=== PATIENT | male | born 1955 | race Caucasian/White ===

== ENCOUNTER 2017-07-05 10:14 | Outpatient (CLI) | payer MEDICARE ==
[2017-07-05 11:48] LABS: Mean Platelet Volume 8.4 fL (7.4-10.4); Red Blood Cell (RBC) Count 4.44 mill/uL (4.70-6.10); White Blood Cell (WBC) Count 7.6 thou/uL (4.8-10.8)
[2017-07-05 11:56] LABS: PTT 28.1 SEC (22.9-36.1); Prothrombin Time 12.7 SEC (12.0-14.7)
[2017-07-05 11:59] LABS: ALT (SGPT) 14 U/L (8-55); AST (SGOT) 12 U/L (5-34); Alkaline Phosphatase 175 U/L (40-150); Anion Gap 14 mmol/L (10-20); BUN (Urea Nitrogen) 15 mg/dL (8.4-25.7); Bilirubin, Total 0.3 mg/dL (0.2-1.2); Calc. Creatinine Clearance 0 mL/min (70-130); Calcium 8.6 mg/dL (7.8-10.44); Carbon Dioxide 20 mmol/L (23-31); Chloride 102 mmol/L (98-107); Estimated GFR-MDRD 49; Globulin 2.8 g/dL (2.4-3.5); Protein, Total 6.1 g/dL (5.8-8.1)
--- NOTE | 2017-07-05 15:11 | EKG ---
Test Reason : Blood Pressure : / mmHG Vent. Rate : 072 BPM Atrial Rate : 072 BPM P-R Int : 182 ms QRS Dur : 086 ms QT Int : 428 ms P-R-T Axes : 040 -27 -51 degrees QTc Int : 468 ms Normal sinus rhythm Voltage criteria for left ventricular hypertrophy Abnormal ECG Confirmed by SAPNA FERNANDEZ ([id number]) on 07/05/2017 3:10:25 PM Referred By: VIDYA Confirmed By:SAPNA FERNANDEZ
--- NOTE | 2017-07-05 16:33 | RAD ---
PA AND LATERAL CHEST X-RAY 07/05/17 HISTORY: Preoperative evaluation. COMPARISON: 05/03/17 FINDINGS: The cardiac silhouette is mildly enlarged and stable in size. There are linear bibasilar densities w hich may relate to either atelectasis or scarring. There is mild eventration of the anterior right h emidiaphragm. Lungs are otherwise clear. There has been no other interval change. IMPRESSION: 1. Atelectasis versus scarring at each lung base. 2. Mild cardiomegaly. 3. No acute cardiopulmonary process. POS: [facility]
== END 2017-07-05 10:15 | disposition home or self-care (01) ==
LOC: LABBT 10:14
PROVIDERS: ATTEND Internal Medicine
DX: Z01.818 Encounter for other preprocedural examination (principal); I25.10 Atherosclerotic heart disease of native coronary artery without angina pectoris; I51.7 Cardiomegaly; R78.81 Bacteremia
CPT/HCPCS: 71020; 80053; 85027; 85610; 85730; 93005; 93010

== ENCOUNTER 2017-07-08 07:08 | Day surgery (SDC) | payer MEDICARE ==
[2017-07-05 11:05] VITALS: BMI 32.2
[2017-07-08] MEDS ORDERED: diphenhydrAMINE HCl 25 MG CAP ONE (07:32)
[2017-07-08] MEDS ORDERED: Diazepam 5 MG TAB ONE (07:32)
[2017-07-08] MEDS ORDERED: diphenhydrAMINE HCl 25 MG CAP PO SCH (07:45)
[2017-07-08] MEDS ORDERED: Sodium Chloride 0.9% 1,000 ML IV SCH (07:45)
[2017-07-08] MEDS ORDERED: Diazepam 5 MG TAB PO SCH (07:45)
[2017-07-08] MEDS ORDERED: Nitroglycerin 100MG/250ML BOT 250 ML ONE (09:53)
[2017-07-08] MEDS ORDERED: Heparin 10,000 UNITS/1 ML VIAL ONE (09:53)
[2017-07-08] MEDS ORDERED: Iopamidol 370 76% 100 ML VIAL ONE (13:18)
== END 2017-07-08 14:25 | disposition home or self-care (01) ==
LOC: CCL 07:08
PROVIDERS: ATTEND Internal Medicine
DX: E11.51 Type 2 diabetes mellitus with diabetic peripheral angiopathy without gangrene (principal); I25.10 Atherosclerotic heart disease of native coronary artery without angina pectoris; E11.22 Type 2 diabetes mellitus with diabetic chronic kidney disease; I13.0 Hypertensive heart and chronic kidney disease with heart failure and stage 1 through stage 4 chronic kidney disease, or unspecified chronic kidney disease; I50.22 Chronic systolic (congestive) heart failure; N18.4 Chronic kidney disease, stage 4 (severe); E78.5 Hyperlipidemia, unspecified; Z79.02 Long term (current) use of antithrombotics/antiplatelets; Z79.82 Long term (current) use of aspirin; Z79.4 Long term (current) use of insulin; Z79.899 Other long term (current) drug therapy; Z88.2 Allergy status to sulfonamides; Z95.818 Presence of other cardiac implants and grafts; Z89.511 Acquired absence of right leg below knee; Z98.49 Cataract extraction status, unspecified eye; Z98.890 Other specified postprocedural states; Z87.891 Personal history of nicotine dependence; Z87.01 Personal history of pneumonia (recurrent)
CPT/HCPCS: 75630; 82962; C1769; 36416; J1644

== ENCOUNTER 2017-08-02 09:57 | Outpatient (CLI) | payer MEDICARE ==
[2017-08-02 13:07] LABS: Hematocrit 40.5 % (42.0-52.0); Mean Platelet Volume 7.7 fL (7.4-10.4); Red Blood Cell (RBC) Count 4.54 mill/uL (4.70-6.10); White Blood Cell (WBC) Count 6.8 thou/uL (4.8-10.8)
[2017-08-02 13:32] LABS: Anion Gap 10 mmol/L (10-20); BUN (Urea Nitrogen) 17 mg/dL (8.4-25.7); Calc. Creatinine Clearance 0 mL/min (70-130); Calcium 8.8 mg/dL (7.8-10.44); Carbon Dioxide 27 mmol/L (23-31); Chloride 99 mmol/L (98-107); Estimated GFR-MDRD 50
[2017-08-02 13:56] LABS: PTT 29.9 SEC (22.9-36.1); Prothrombin Time 12.5 SEC (12.0-14.7)
== END 2017-08-02 09:58 | disposition home or self-care (01) ==
LOC: LABBT 09:57
PROVIDERS: ATTEND Thoracic Surgery (Cardiothoracic Vascular Surgery)
DX: Z01.812 Encounter for preprocedural laboratory examination (principal); I73.9 Peripheral vascular disease, unspecified; R78.81 Bacteremia
CPT/HCPCS: 80048; 85027; 85610; 85730

== ENCOUNTER 2017-08-04 05:41 | Day surgery (SDC) | payer MEDICARE ==
--- NOTE | 2017-07-29 11:38 | HP ---
DATE OF PROCEDURE: 08/04/2017 HISTORY OF PRESENT ILLNESS: This is a 61-year-old gentleman with severe peripheral vascular disease who has undergone a previous left aysen-nce-slzx amputation. He has developed significant right il iac artery disease and underwent recent angiography by Dr. Alvarez. He is now being admitted for elect rachel angiography and iliac stenting. He has no rest pain in his right leg, but does claudicate in hi s calf with transfers. He was seen about 1 year ago with a palpable right femoral pulse; however, m ost recent examination I was unable to palpate either pulses. He has previously been offered iliac stenting and did not want to proceed at that time. He has developed some abrasions that are slow to heal in his leg. He has congestive heart failure with an ejection fraction of 45%. He has chronic renal insufficiency with a creatinine in the 2.4-3 range. He has poorly controlled diabetes mellit us and does not make much attempt at controlling this, eating whatever he wants. He did stop smokin g about 2 years ago. PAST SURGICAL HISTORY: Includes a left lkyuj-ctv-yiyi amputation following left external iliac and popliteal artery interventions in 2013. He has had a previous inguinal hernia repair and cataract s urgery. SOCIAL HISTORY: Longstanding smoker, but as noted above, recently stopped. He is . He is a nondrinker. ALLERGIES: SULFA DRUGS. MEDICATIONS: Spironolactone 25 a day, NovoLog 0-12 units t.i.d., Levemir insulin 25 units b.i.d., l isinopril 1 tablet once a day, Ranexa 500 a day, Coreg 25 b.i.d., aspirin 1 a day, Plavix 75 a day, Lasix 40 a day p.r.n., Lipitor 40 a day, alprazolam 0.5 t.i.d. p.r.n. PHYSICAL EXAMINATION: GENERAL: Alert, cooperative gentleman. VITAL SIGNS: Blood pressure 150/70, heart rate 80. NECK: No carotid bruits. CARDIAC: Regular rate and rhythm, no murmurs. LUNGS: Clear to auscultation. ABDOMEN: Obese. EXTREMITIES: Left BKA, in a wheelchair. Peripheral pulses, no femoral pulses today. Doppler of th e right PT of 90 with arm pressure of 130. NEUROLOGIC: Intact. PLAN: The plan at this time is for right femoral artery puncture and attempted iliac artery stentin g. The patient does have common femoral artery disease, but most recent angiogram does not demonstrate a severe disease as I had initially anticipated at which time I would consider doing a right femoral endarterectomy. The patient understands the increased risk of renal insufficiency and is ready to proceed with angiography.
[2017-08-02 10:28] VITALS: BMI 32.2
[2017-08-04] MEDS ORDERED: diphenhydrAMINE 25 MG CAP ONE (06:22)
[2017-08-04] MEDS ORDERED: diphenhydrAMINE 25 MG CAP PO SCH (07:00)
[2017-08-04] MEDS ORDERED: Midazolam HCl 2 mg/2 ml Vial ONE (07:08)
[2017-08-04] MEDS ORDERED: Fentanyl 100 MCG/2 ML VIAL ONE ×2 (07:09→08:56)
[2017-08-04] MEDS ORDERED: Heparin 10,000 UNITS/1 ML VIAL ONE (07:46)
[2017-08-04] MEDS ORDERED: Protamine Sulfate 50 MG/5 ML VIAL ONE (07:54)
[2017-08-04] MEDS ORDERED: HYDROcodone/Acetaminophen 5/325 mg Tablet PO PRN (08:41)
[2017-08-04] MEDS ORDERED: Ondansetron HCl/PF 4 MG/2 ML Vial IVP PRN (08:41)
[2017-08-04] MEDS ORDERED: Fentanyl 100 MCG/2 ML VIAL SLOW IVP PRN (08:41)
[2017-08-04] MEDS ORDERED: Iopamidol 370 76% 50 ML VIAL FS ONE (14:33)
--- NOTE | 2017-08-04 16:01 | CCL ---
PROCEDURE: Distal aortogram and iliofemoral runoff. SURGEON: Berry ADDITIONAL PROCEDURE: Right common iliac balloon expandable stents 7 x 27. CONTRAST: 32 mL. FLUOROSCOPY: 5.4 minutes. SEDATION START TIME: 7:11 SEDATION COMPLETION TIME: 7:46 PROCEDURE IN DETAIL: After prepping and draping, a combination of ultrasound and fluoroscopy were used to a micropuncture the right common femoral artery. Micropuncture catheter was advanced. A 0.035 wire was placed follo wing which a 5 Venezuelan dilator and sheath were placed. Retrograde angiography of the right common medardo ac was obtained, following which a glide catheter and Bentson wire were used to advance across the s ubtotal occlusion in the mid common iliac artery on the right. Following this, the glide catheter wa s advanced above the bifurcation and injection obtained here, taking care to minimize manipulation ab ove the aorta. Following this, the wire was replaced. Heparin was given. A 7 Venezuelan marker sheath w as advanced and a 5 x 40 predilation was carried out. Following this, a 7 x 27 stent inflated. Comp letion angiography showed good result. The patient was given protamine and the sheath was removed.
== END 2017-08-04 14:59 | disposition home or self-care (01) ==
LOC: CCL 05:41
PROVIDERS: ATTEND Thoracic Surgery (Cardiothoracic Vascular Surgery)
DX: E11.51 Type 2 diabetes mellitus with diabetic peripheral angiopathy without gangrene (principal); E11.22 Type 2 diabetes mellitus with diabetic chronic kidney disease; I12.9 Hypertensive chronic kidney disease with stage 1 through stage 4 chronic kidney disease, or unspecified chronic kidney disease; N18.4 Chronic kidney disease, stage 4 (severe); E78.5 Hyperlipidemia, unspecified; I25.10 Atherosclerotic heart disease of native coronary artery without angina pectoris; Z79.4 Long term (current) use of insulin; Z79.01 Long term (current) use of anticoagulants; Z79.82 Long term (current) use of aspirin; Z79.899 Other long term (current) drug therapy; Z99.3 Dependence on wheelchair; Z88.2 Allergy status to sulfonamides; Z98.49 Cataract extraction status, unspecified eye; Z95.818 Presence of other cardiac implants and grafts; Z89.512 Acquired absence of left leg below knee; Z98.890 Other specified postprocedural states; Z87.891 Personal history of nicotine dependence
CPT/HCPCS: 37221; 76942; 82962; 85347; 96374; C1725 ×2; C1769; C1876; 36416; 99152; J1644; J2250; J2720; J3010

== ENCOUNTER 2017-08-14 23:47 | Inpatient (IN) | payer MEDICARE ==
[2017-08-15 00:45] LABS: #Eosinphils 0.1 thou/uL (0.0-0.7); #Lymphocytes 0.5 thou/uL (1.20-3.40); #Monocytes 0.7 thou/uL (0.11-0.59); #Neutrophils 9.7 thou/uL (1.40-6.50); %Basophils 0.1 % (0.0-1.0); %Eosinophils 0.5 % (0.0-10.0); %Lymphocytes 4.7 % (21.0-51.0); %Monocytes 6.5 % (0.0-10.0); Hematocrit 36.2 % (42.0-52.0); Mean Platelet Volume 7.3 fL (7.4-10.4); Red Blood Cell (RBC) Count 4.07 mill/uL (4.70-6.10)
[2017-08-15 00:51] LABS: Prothrombin Time 14.6 SEC (12.0-14.7)
[2017-08-15 00:52] LABS: PTT 35.7 SEC (22.9-36.1)
[2017-08-15 00:53] LABS: Magnesium 1.6 mg/dL (1.6-2.6)
[2017-08-15 01:04] LABS: Troponin I 0.139 ng/mL (< 0.028)
[2017-08-15] MEDS ORDERED: Metoclopramide HCl 10 MG/2 ML VIAL ONE (01:07)
[2017-08-15 01:53] LABS: ALT (SGPT) 19 U/L (8-55); AST (SGOT) 24 U/L (5-34); Alkaline Phosphatase 629 U/L (40-150); Anion Gap 13 mmol/L (10-20); BUN (Urea Nitrogen) 40 mg/dL (8.4-25.7); Bilirubin, Total 0.4 mg/dL (0.2-1.2); Calc. Creatinine Clearance 0 mL/min (70-130); Calcium 7.4 mg/dL (7.8-10.44); Carbon Dioxide 23 mmol/L (23-31); Chloride 94 mmol/L (98-107); Estimated GFR-MDRD 17; Globulin 2.9 g/dL (2.4-3.5); Protein, Total 5.3 g/dL (5.8-8.1)
[2017-08-15 04:16] LABS: Troponin I 0.145 ng/mL (< 0.028)
[2017-08-15] MEDS ORDERED: Lidocaine 2% Jelly 5 ML TUBE ONE (04:18)
[2017-08-15] MEDS ORDERED: Mag-Al 1200 mg/1200 mg/30 ML UDCUP ONE (04:18)
[2017-08-15] MEDS ORDERED: Lidocaine Viscous Sol 2% 15 ml UD Cup ONE (04:19)
[2017-08-15] MEDS ORDERED: Ondansetron HCl/PF 4 MG/2 ML Vial IVP PRN ×2 (05:22→18:46)
[2017-08-15] MEDS ORDERED: Ondansetron ODT 4 MG TAB SL PRN (05:22)
[2017-08-15 07:10] LABS: Troponin I 0.145 ng/mL (< 0.028)
[2017-08-15 07:58] LABS: #Lymphocytes 0.6 thou/uL (1.20-3.40); #Monocytes 0.8 thou/uL (0.11-0.59); #Neutrophils 9.7 thou/uL (1.40-6.50); %Basophils 0.3 % (0.0-1.0); %Eosinophils 0.3 % (0.0-10.0); %Lymphocytes 5.3 % (21.0-51.0); %Monocytes 7.2 % (0.0-10.0); Hematocrit 33.5 % (42.0-52.0); Mean Platelet Volume 7.3 fL (7.4-10.4); Red Blood Cell (RBC) Count 3.75 mill/uL (4.70-6.10); White Blood Cell (WBC) Count 11.1 thou/uL (4.8-10.8)
[2017-08-15 08:19] LABS: Anion Gap 11 mmol/L (10-20); BUN (Urea Nitrogen) 42 mg/dL (8.4-25.7); Calc. Creatinine Clearance 29 mL/min (70-130); Calcium 7.8 mg/dL (7.8-10.44); Carbon Dioxide 21 mmol/L (23-31); Chloride 99 mmol/L (98-107); Estimated GFR-MDRD 16; Magnesium 1.5 mg/dL (1.6-2.6); Phosphorus 3.4 mg/dL (2.3-4.7)
[2017-08-15] MEDS ORDERED: SODIUM CHLORIDE IVPB SCH (08:45)
[2017-08-15] MEDS ORDERED: MAGNESIUM SULFATE IVPB SCH (08:45)
[2017-08-15] MEDS ORDERED: ADMIXTURE FEE IVPB SCH (08:45)
[2017-08-15] MEDS ORDERED: Potassium Chloride 40 MEQ in Premix Bag 1 BAG IVPB SCH (08:45)
[2017-08-15] MEDS ORDERED: FLU VACC QS2017-18 36 mo. & older 0.5 ML SYRINGE IM ONE (09:00)
[2017-08-15] MEDS ORDERED: Potassium Chloride 40 MEQ, Admixture Fee 1 EACH in Sodium Chloride 0.9% 250 ML 250 ML IVPB SCH (09:00)
[2017-08-15] MEDS ORDERED: Morphine 4 MG/ML Carpuject SLOW IVP PRN ×2 (09:05→09:38)
--- NOTE | 2017-08-15 09:06 | HP ---
DATE OF ADMISSION: 08/15/2017 REQUESTING PHYSICIAN: Gerson Dixon DO ATTENDING SURGEON: Ignacio Stock M.D. CONSULTATIONS: Orthopedics, Pedro Powell M.D. HISTORY OF PRESENT ILLNESS: The patient is a 61-year-old man who reportedly was at home ma neuvering in his bathroom. The patient has a left BKA and was pivoting on his right lower extremity when he missed his grabber and fell landing on his right hip. The patient had immediate pain and was taken initially to the emergency room in [place] where he underwent evaluation and examination, was noted to have a right intertrochanteric fracture of his right proximal femur. The patient was s ubsequently transferred here for admission and orthopedic evaluation. In our emergency department, l aboratory evaluation showed that the patient was hyponatremic and had an indeterminate troponin, so cleo miles was initially admitted to the telemetry floor. His troponins remained indeterminate without elevat ion. PAST MEDICAL HISTORY: Includes myocardial infarction in 2013 and 2014, hypertension, diabetes, and c ongestive heart failure and anxiety. PAST SURGICAL HISTORY: Stents x3, one cardiac, one right femoral and one abdominal stent, surgery fo r deviated septum, inguinal hernia and a left BKA. ALLERGIES: SULFA. CURRENT MEDICATIONS: Aspirin, atorvastatin, furosemide, Plavix, Xanax, carvedilol, Levemir, NovoLog, and Ranexa. FAMILY MEDICAL HISTORY: Hypertension, diabetes. SOCIAL HISTORY: Patient denies drugs or alcohol use and quit smoking several years ago. REVIEW OF SYSTEMS: A 10-point review of systems is negative unless otherwise stated. PHYSICAL EXAMINATION: VITAL SIGNS: Blood pressure 154/86, heart rate 86, respirations 20, oxygen saturation is 97% on room air. GENERAL: Patient is resting in bed. He is alert and oriented x3 [place] coma scale is 15. HEENT: Show that head is normocephalic, atraumatic. Eyes: Extraocular motion intact. PERRLA bilat erally. Ears are atraumatic without discharge. Nose is atraumatic without discharge. Oropharynx is clear. NECK: Nontender. Trachea is midline. No JVD. CHEST: Clear to auscultation with good inspiratory and expiratory effort. HEART: Regular rate and rhythm. ABDOMEN: Soft, flat, nontender with active bowel sounds. PELVIC: Stable. EXTREMITIES: The patient is tender to palpation to his right hip area consistent with his fracture. His capillary refill distally is 2+. Decreased sensation consistent with his diabetic peripheral ne uropathy. Upper extremities are unremarkable. BACK: Nontender and atraumatic. LABORATORY FINDINGS: White blood cell count 11.1, hemoglobin 10.9, hematocrit 33.5, platelets 293. Sodium 128, potassium 3.1, chloride 99, CO2 21, BUN 42, creatinine 3.78, glucose 171, magnesium 1.5, phosphorus 3.4, PT 14.6, INR 1.1, PTT 35.7. RADIOGRAPHS: Right hip shows a right intertrochanteric fracture with minimal displacement. ASSESSMENT AND PLAN: 1. Status post ground level fall. 2. Right hip fracture. 3. Hyponatremia. 4. Hypokalemia. 5. Acute on chronic renal failure. 6. History of diabetes. 7. History of hypertension. Plan will be medical stabilization for surgery planned for today. Physical and occupational therapy, pulmonary toilet, gastritis and mechanical deep vein thrombosis prophylaxis and rehab consultation. Evaluation, examination, laboratory and radiographic findings were all discussed with Dr. Montrell william s morning during rounds. He has agreed with this plan. The case was also discussed with Dr. Powell and he was again in agreement with this plan.
[2017-08-15] MEDS ORDERED: Morphine 4 MG/ML VIAL IV PRN ×2 (09:10→09:42)
[2017-08-15] MEDS ORDERED: CEFAZOLIN/Water 2 GM/20 ML SYRINGE SLOW IVP SCH (09:15)
[2017-08-15] MEDS ORDERED: Sodium Chloride 0.9% 500 ML IV SCH (09:30)
[2017-08-15] MEDS ORDERED: Sodium Chloride 0.9% 1,000 ML IV SCH (09:30)
--- NOTE | 2017-08-15 09:40 | CON ---
HISTORY OF PRESENT ILLNESS: We were asked to see the patient via Trauma in the emergency room. The patient was in his normal state of health last night when he was hopping on his right leg, he has a l eft BKA in the past and he did not get grabber and fell on his right hip. He is in a fairly signific ant amount of pain right now. He has been kept n.p.o. in lieu of surgical repair today. The patient recalls the accident, the fall, noises that his hip made when he was moving around. He is answering all the questions well. He had no loss of consciousness. He does have some neuropathy, is able to f eel sensation in the right lower extremity, and is able to move from the knee down fairly well. Any other movement causes significant pain to the right hip that radiates into the groin. His leg is cur rently rotated outward mildly as is the foot. PAST MEDICAL HISTORY: Positive for diabetes, cardiac issues with an OK, hypertension, congestive hea rt failure. He recently had a stent placed in his right femoral region. He has diabetes, diabetic n europathy. PAST SURGICAL HISTORY: Septum surgery, inguinal hernia repair, cataract surgery, femoral stent, and l eft BKA. PSYCHIATRIC HISTORY: Includes anxiety. SOCIAL HISTORY: No alcohol or nicotine. He lives in an apartment. Resides with his . FAMILY HISTORY: Noncontributory. ALLERGIES: SULFA. CURRENT MEDICATIONS: Aspirin, atorvastatin, furosemide, Plavix, Xanax, carvedilol, Levemir, NovoLog, Ranexa. REVIEW OF SYSTEMS: Denies any chest pain, shortness of breath currently. No GI distress, only compl aint currently is pain in the right hip. The rest of review of systems is negative. PHYSICAL EXAMINATION: GENERAL: Well-nourished male resting in bed in some moderate distress. Speech is clear. Answers qu estions appropriately, is alert and oriented x3. HEENT: Normal exam. NEUROLOGIC: Upper extremities, he moves both these well. He does have some bruising to the forearms and hands, but not bad. Movement is equal. On lower extremity exams, right lower extremity is rota bola laterally, but is in moderate distress, especially with any movement. Left lower extremity BKA. Right lower extremity DP, PT pulses are intact and he is able to feel sensations to the foot and dig its. ASSESSMENT: 1. Right intertrochanteric fracture. 2. Multiple health issues. 3. Left below knee amputation. PLAN: I spoke with the patient extensively. We will keep him n.p.o., give him consented for an ORIF of right hip with a TFN nail. I explained the procedure, risks, and benefits to the patient and he i s amenable to go forth with surgery. We talked about aftercare versus placement, PT, OT and he under stands the level of the work on his hands to do. We will add some morphine. He is in a bit of pain and has not had pain meds for a while he was getting through until the time of surgery and cannot him give him Toradol as his renal functions are elevated. I explained this to the patient. I am trying to get his pain under control and see how he does. Hopefully, after surgery would be able to get him moving a little bit quicker and released back up on the leg for pivoting purposes.
[2017-08-15] MEDS ORDERED: Morphine PF 1 MG/ML SYR IV PRN (09:41)
--- NOTE | 2017-08-15 09:46 | HP ---
HISTORY OF PRESENT ILLNESS: A 61-year-old male status post left below the knee amputation has suffer ed a right hip fracture after a fall. Dr. Powell has seen him. HAILY Francis has seen him. Josemanuel jeter has had an iliac stent placed earlier this year by Dr. Smart. The patient has a history of jenkins ry stent, has an appointment to see Dr. Jeff Alvarez tomorrow. He is asymptomatic from a cardiac standp oint. He had a stent placed about a year and a half ago. The patient reports that he is taking aspi rin daily as well as insulin and Plavix. The patient has never had a prosthesis for his left below-t he-knee amputation. He transfers independently however. PHYSICAL EXAMINATION LUNGS: Clear to auscultation. CARDIAC: Regular rate and rhythm without murmur or gallop. ABDOMEN: Soft, obese, nontender. EXTREMITIES: Left below knee amputation stump well healed. Neurologically intact right foot. LABORATORY DATA: His white count is 11, hemoglobin 10. Basic metabolic profile essentially unremarka ble. BUN 42, creatinine 3.78, GFR 16. ASSESSMENT AND PLAN: Acute kidney injury. The patient has a history of chronic kidney disease. Wou ld consult Nephrology to see him perioperatively. From a cardiac standpoint, the patient is asymptom atic and should be stable to have ORIF of his right hip. Agree with plan per HAILY Francis and Dr. Powell.
[2017-08-15] MEDS: Sodium Chloride 0.9% 1,000 ML IV SCH ×2 (10:17→17:52)
--- NOTE | 2017-08-15 10:53 | CON ---
DATE OF CONSULTATION: 08/15/2017 REASON FOR CONSULTATION: Preoperative evaluation. HISTORY OF PRESENT ILLNESS: Mr. Mendez is a 61-year-old white gentleman who comes to the hospital for hip fracture. He fell down and broke his hip. He has a previous left BKA, he broke his right femur . He has significant history of coronary artery disease. He had a stent placed in 2014. His right coronary artery in the setting of a cardiomyopathy, he had an EF of 20%-25%. At the moment of the ca theterization, it was 30%-35%. After stenting and optimum medical therapy, he had a repeat echocardi ogram sometime in April of last year and his EF last time was recorded was 55%-60%, back to normal. He comes in for the above complaints. He had a stent placed by Dr. Smart to his right common iliac artery on 08/06/2017, just about a little over a week ago. This was a balloon expandable stent and cleo miles has been on Plavix due to this. PAST MEDICAL HISTORY: 1. History nonischemic cardiomyopathy with EF of 25%, now improved back to normal at 55%-60% on last echo a year ago. 2. Coronary artery disease, status post stent placement. 3. Peripheral vascular disease. 4. Diabetic neuropathy. 5. Hypertension. 6. Hyperlipidemia. 7. Type 2 diabetes. PAST SURGICAL HISTORY: 1. Cataract removal. 2. Hernia repair. 3. Stent placement, right coronary artery. 4. Peripheral vascular disease with stent to the right iliac, most recently just a week ago. 5. Right inguinal hernia repair. 6. Left fourth and fifth digit amputation of the left foot due to nonhealing wounds. 7. BKA on the left. HOME MEDICATIONS: 1. Tramadol p.r.n. 2. Zofran p.r.n. 3. Probiotic. 4. Stool softener. 5. Coreg 25 mg b.i.d. 6. Ranexa 500 mg b.i.d. 7. Insulin Regular. 8. Levemir 30 units subcu b.i.d. 9. Plavix 75 mg a day. 10. Flomax. 11. Lasix 20 mg q.a.m. 12. Lipitor 40 mg at bedtime. 13. Aspirin 325 a day. 14. Xanax 0.5 mg p.o. t.i.d. p.r.n. anxiety. ALLERGIES: SULFA DRUGS. SOCIAL HISTORY: History of tobacco use in the past, none recently. No alcohol or drugs. REVIEW OF SYSTEMS: Twelve point review of systems was done and on the rest in the past. FAMILY HISTORY: Noncontributory. PHYSICAL EXAMINATION: VITAL SIGNS: Temperature 98.9, pulse 80, respiratory rate 18, satting 94% on 3 liters, blood pressur e 137/65. GENERAL: Awake, alert, oriented x3, in no distress. HEENT: Normocephalic, atraumatic. NECK: Supple. LUNGS: Clear. CARDIOVASCULAR: S1, S2, no S3, S4, no murmurs or rubs. ABDOMEN: Soft, positive bowel sounds. EXTREMITIES: No edema. SKIN: Warm and dry. LABORATORY WORK: Reviewed. CBC with a white count of 11, hemoglobin of 11.9, hematocrit 36, platele t count of 328. Coags were unremarkable. Chemistry showed a sodium 128, potassium was 3.1, carbon d ioxide of 21, anion gap of 11, BUN of 42, creatinine 3.78, GFR of 16 is a new finding, glucose of 171 , troponin of 0.13, 0.14 0.14, normal CK-MB, calcium 7.4, alkaline phosphatase of 629, albumin of 2.4 . ASSESSMENT AND PLAN: 1. Preoperative evaluation: Mr. Mendez is intermediate risk for an intermediate risk procedure. He is asymptomatic from the cardiac perspective and his left ventricular function was normal, just a yea r ago. He should be able to undergo this procedure with the understood risk caveats. At this time, nothing to be done about modifying his risk for surgery. 2. Peripheral vascular disease. Recent stenting to his right common iliac. Would recommend to cont inue Plavix. This has to be on for at least the next 3 months and only stop it if there is bleeding complications from surgery. 3. Acute kidney injury: His creatinine went from 0.5 just yesterday, it was 1.4 on the this mo nth and is now 3.78. I agree with IV fluids. Thank you for letting us to participate in the care of this patient. Dr. Alvarez, his primary cardiolog ist, will follow in the morning.
[2017-08-15] MEDS ORDERED: Tranexamic Acid 1,000 MG/100 ML BAG ONE (11:30)
[2017-08-15] MEDS ORDERED: Famotidine/PF 20 mg/2ml Vial ONE (11:35)
[2017-08-15] MEDS ORDERED: Morphine 4 MG/ML VIAL ONE (11:54)
[2017-08-15] MEDS ORDERED: Furosemide 20 MG/2 ML VIAL SLOW IVP SCH (13:00)
[2017-08-15] MEDS ORDERED: Midazolam HCl 2 mg/2 ml Vial ONE (13:44)
[2017-08-15] MEDS ORDERED: ALPRAZolam 0.25 MG TAB ONE (14:28)
[2017-08-15] MEDS: ALPRAZolam 0.5 MG TAB PO SCH ×2 (15:17→20:42)
--- NOTE | 2017-08-15 15:41 | CON ---
DATE OF CONSULTATION: 08/15/2017 REASON FOR CONSULTATION: Elevated creatinine. HISTORY OF PRESENT ILLNESS: This is a very pleasant 61-year-old gentleman with a hip fracture. The patient had a history of CKD with a baseline creatinine of 1.4 in July which increased to 3.6 tod ay. The patient had a prior episode of acute kidney injury in April with a creatinine of 2.5. Prio r baseline last year was between anywhere from 1.0 to 1.4. PAST MEDICAL HISTORY: Significant for nonischemic cardiomyopathy, EF of 55%, coronary artery disease , hypertension, hyperlipidemia, cataract removal, stent placement, peripheral vascular disease, right inguinal hernia, left 4th and 5th digit amputation, BKA. HOME MEDICATIONS: List reviewed. HOSPITAL MEDICATIONS: List reviewed. ALLERGIES: Reviewed. FAMILY HISTORY: Negative for ESRD. SOCIAL HISTORY: No alcohol or drug use. REVIEW OF SYSTEMS: Fifteen-point review of systems was performed and negative except positives noted above. PHYSICAL EXAMINATION: GENERAL: Patient is awake, alert. VITAL SIGNS: Afebrile, pulse 80, breathing at 16, blood pressure was 137/65. GENERAL APPEARANCE AND MENTAL STATUS: Fair. HEAD/NECK: Normocephalic. Atraumatic. EYES: EOMI. No deformity. EARS: Clear. No ulcers. NOSE: Intact. No lesions. MOUTH: Clear. No discharge. THROAT: Clear. No exudate. LUNGS: Clear. No crackles. CARDIAC: S1, S2. No rub. ABDOMEN: Benign. BS+. GENITALIA/RECTUM: Vaughn absent. BACK/EXTREMITIES: Edema 0+ Ulcer- NEUROLOGICAL: Alert and motor intact. SKIN: Rash- Bruise- LYMPHATICS: Edema- Ulcer- ASSESSMENT AND RECOMMENDATIONS: 1. Acute kidney injury most likely due to cardiorenal syndrome. Continue gentle hydration. Renal u ltrasound did not show any major renal disease. 2. Anemia, stable. No indication for dialysis at this time. 3. Hypokalemia. Agree with potassium replacement. We will follow this patient closely.
[2017-08-15] MEDS ORDERED: hydrALAZINE 20 MG/ML VIAL SLOW IVP PRN (18:46)
[2017-08-15] MEDS ORDERED: Ondansetron ODT 4 MG TAB PO PRN (18:46)
[2017-08-15] MEDS ORDERED: Morphine 4 MG/ML VIAL SLOW IVP PRN ×2 (18:46→19:03)
[2017-08-15] MEDS ORDERED: Dextrose 5% in Water 1,000 ML IV PRN (18:46)
[2017-08-15] MEDS ORDERED: HYDROcodone/Acetaminophen 10/325 mg Tablet PO PRN ×2 (18:46)
[2017-08-15] MEDS ORDERED: Dextrose 50% Abboject 50 ML SYRINGE SLOW IVP PRN (18:46)
[2017-08-15] MEDS: Morphine 4 MG/ML VIAL SLOW IVP PRN (19:12)
[2017-08-15] MEDS: Famotidine 20 MG TAB PO SCH (20:47)
[2017-08-15] MEDS ORDERED: Famotidine 20 MG TAB PO SCH (21:00)
[2017-08-16] MEDS: Sodium Chloride 0.9% 1,000 ML IV SCH ×3 (04:39→20:31)
[2017-08-16 05:23] LABS: #Eosinphils 0.1 thou/uL (0.0-0.7); #Lymphocytes 0.7 thou/uL (1.20-3.40); #Monocytes 1.2 thou/uL (0.11-0.59); #Neutrophils 10.7 thou/uL (1.40-6.50); %Basophils 0.1 % (0.0-1.0); %Eosinophils 0.7 % (0.0-10.0); %Lymphocytes 5.8 % (21.0-51.0); %Monocytes 9.2 % (0.0-10.0); Mean Platelet Volume 7.1 fL (7.4-10.4); Red Blood Cell (RBC) Count 3.65 mill/uL (4.70-6.10); White Blood Cell (WBC) Count 12.7 thou/uL (4.8-10.8)
[2017-08-16 05:43] LABS: Anion Gap 16 mmol/L (10-20); BUN (Urea Nitrogen) 41 mg/dL (8.4-25.7); Calc. Creatinine Clearance 33 mL/min (70-130); Calcium 7.7 mg/dL (7.8-10.44); Carbon Dioxide 17 mmol/L (23-31); Chloride 101 mmol/L (98-107); Estimated GFR-MDRD 19
[2017-08-16] MEDS: Morphine 4 MG/ML VIAL SLOW IVP PRN ×3 (06:54→23:00)
[2017-08-16] MEDS: ALPRAZolam 0.5 MG TAB PO SCH ×4 (09:00→20:30)
--- NOTE | 2017-08-16 09:46 | ULT ---
DIALYSIS UPPER EXTREMITY VESSEL MAPPING: Date: 08/16/17 HISTORY: Dialysis graft placement. End-stage renal disease. COMPARISON: None. TECHNIQUE: Alvarez scale, color flow, Doppler imaging, and spectral waveform analysis performed of left and right l ower extremity arterial and venous systems. FINDINGS: RIGHT UPPER EXTREMITY BRACHIAL ARTERY: 4.2 mm RADIAL ARTERY: 2.1 mm ULNAR ARTERY: 2.4 mm CEPHALIC VEIN Proximal Humerus: 4.0 mm Mid Humerus: 3.2 mm Distal Humerus: 3.4 mm Antecubital Fossa: 5.0 mm Proximal Forearm: 2.8 mm Mid Forearm: 3.0 mm Distal Forearm: 2.8 mm BASILIC VEIN Proximal Humerus: 2.8 mm Mid Humerus: 2.2 mm Distal Humerus: 3.7 mm Antecubital Fossa: 2.1 mm Proximal Forearm: 2.7 mm Mid Forearm: 2.7 mm Distal Forearm: 1.9 mm LEFT UPPER EXTREMITY BRACHIAL ARTERY: 4.9 mm RADIAL ARTERY: 2.2 mm ULNAR ARTERY: 1.9 mm CEPHALIC VEIN Proximal Humerus: 1.9 mm Mid Humerus: 0.9 mm Distal Humerus: Not seen Antecubital Fossa: Not seen Proximal Forearm: Not seen Mid Forearm: Not seen Distal Forearm: Not seen BASILIC VEIN Proximal Humerus: 2.9 mm Mid Humerus: 3.6 mm Distal Humerus: 2.4 mm Antecubital Fossa: 2.1 mm Proximal Forearm: 2.4 mm Mid Forearm: 2.5 mm Distal Forearm: Not seen IMPRESSION: Vessel mapping as above. POS: [facility]
[2017-08-16] MEDS ORDERED: CEFAZOLIN/Water 2 GM/20 ML SYRINGE ONE (11:59)
[2017-08-16] MEDS ORDERED: Tranexamic Acid 1,000 MG/100 ML BAG ONE (11:59)
[2017-08-16] MEDS ORDERED: Fentanyl 100 MCG/2 ML VIAL ONE (12:08)
--- NOTE | 2017-08-16 14:08 | PRG ---
DATE OF SERVICE: 08/16/2017 SUBJECTIVE: The patient is hospital day #2 status post ground level fall, which he sustained a right hip fracture. The patient is currently awaiting surgical intervention. He did require dialysis for the past 2 days and he was also scheduled for vascular mapping for possible fistula placement to fac ilitate future dialysis. This morning, the patient was in dialysis when we saw him, he had no compla ints. His pain was controlled last night and has remained n.p.o. overnight. PHYSICAL EXAMINATION: VITAL SIGNS: Temperature 98.5, pulse 79, blood pressure 173/74, respirations 18, oxygen saturation i s 96% on 2 liters via nasal cannula. GENERAL: The patient is currently in dialysis. He is alert and oriented x3. [place]ak[place] coma scale was 15. HEENT: Unremarkable. LUNGS: Clear to auscultation bilaterally. HEART: Regular rate and rhythm. ABDOMEN: Soft, flat, nontender with active bowel sounds. EXTREMITIES: Patient is neurovascularly intact x3. Of note, the patient has a left BKA. ASSESSMENT AND PLAN: 1. Status post ground level fall. 2. Acute renal failure requiring dialysis. 3. Hyperkalemia, resolved. 4. Right hip fracture. Plan will be to continue dialysis per Nephrology. The patient was evaluated by Cardiology and was cl eared for surgery as an intermediate risk. The patient is scheduled to undergo his orthopedic proced ure today and fistula formation will be discussed with him at a later time. The patient was evaluate d this morning during rounds with Dr. Rosado,.
[2017-08-16] MEDS ORDERED: PHENYLEPHRINE-NS 100 MCG/ML 10 ML SYRINGE ONE (14:23)
[2017-08-16] MEDS ORDERED: Ondansetron HCl/PF 4 MG/2 ML Vial ONE (14:23)
[2017-08-16] MEDS ORDERED: Propofol 200 MG/20 ML VIAL ONE (14:23)
[2017-08-16] MEDS ORDERED: Glycopyrrolate 0.2 MG/ML 5 ML SYRINGE ONE (14:23)
--- NOTE | 2017-08-16 15:06 | PDOC.OP ---
Operative Note - Operative Note Operative Note: PROCEDURE: Left femoral hemodialysis catheter placement with ultrasound guidance DATE OF PROCEDURE: 08/15/2017 SURGEON: John Zhou M.D. PREOPERATIVE DIAGNOSES: Acute renal failure POSTOPERATIVE DIAGNOSIS: Acute renal failure HISTORY: Patient is a 61-year-old man who presented to the emergency room after a fall with a right hip fracture. He has gone into acute renal failure and fluid overload and his clinical trials systems administrator has decided to institute dialysis. PROCEDURE IN DETAIL: After informed consent was obtained and an ultrasound used to confirm presence of a patent compressible femoral vein, the groin was prepped and draped in standard sterile fashion. Local anesthesia was infused over the femoral vein which was accessed under direct ultrasound guidance with excellent flow of dark venous nonpulsatile blood. Ultrasound was used to confirm the presence of the wire within the patent compressible femoral vein. A skin incision was made and the tract was serially dilated over the wire. The dialysis catheter was placed over the wire and secured to the skin with sutures. All ports easily aspirated and easily flushed without resistance. A Biopatch and Tegaderm dressing was placed. The patient tolerated the procedure well. Estimated blood loss was minimal. There were no complications. There were no specimens.
[2017-08-16] MEDS ORDERED: Promethazine HCl 25 MG/ML VIAL IM PRN (15:40)
[2017-08-16] MEDS ORDERED: Morphine 4 MG/ML VIAL ONE (15:40)
[2017-08-16] MEDS ORDERED: Promethazine HCl 25 MG/ML VIAL SLOW IVP PRN (15:40)
[2017-08-16] MEDS ORDERED: Ondansetron HCl/PF 4 MG/2 ML Vial IVP PRN (15:40)
[2017-08-16] MEDS ORDERED: Milk Of Magnesia 30 ML UDCUP PO PRN (15:53)
[2017-08-16] MEDS ORDERED: Fleet Enema 133 ML BOT PR PRN (15:53)
[2017-08-16] MEDS ORDERED: Cepastat Lozenges 1 LOZ PO PRN (15:53)
[2017-08-16] MEDS ORDERED: Bisacodyl 10 MG SUPP PR PRN (15:53)
[2017-08-16] MEDS ORDERED: CEFAZOLIN 1 GM in Sodium Chloride 0.9% 100 ML IVPB SCH (15:53)
[2017-08-16] MEDS ORDERED: CEFAZOLIN 1 GM, Syringe 2.5 ML in Sterile Water 7.5 ML SLOW IVP SCH (16:00)
--- NOTE | 2017-08-16 17:06 | OP ---
PREOPERATIVE DIAGNOSES: 1. Right intertrochanteric fracture. 2. Diabetes. 3. Coronary artery disease. 4. Acute renal failure and chronic kidney disease. 5. Left jhxop-utc-cawn amputation. 6. Right intertrochanteric hip fracture. PROCEDURE PERFORMED: Right intramedullary nailing of right intertrochanteric hip fracture. STAFF: Pedro Powell M.D. PROSPECT MANAGER: Missael Aranda PA-C ANESTHESIA: Hernandez. The patient received a general endotracheal intubation. ESTIMATED BLOOD LOSS: 75 mL. TOURNIQUET TIME: None. IMPLANTS: An 11 mm TFNA nail with a 100 mm compression screw and a 38 mm 5.0 distal locking screw Sy nthes. ANTIBIOTICS: Ancef 2 grams, TXA 1 gram. COMPLICATIONS: None. HISTORY OF PRESENT ILLNESS: Mr. 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 The patient and family understood the risks and be nefits of a right hip intramedullary nailing to include pain, scar, bleeding, infection, nonunion, ma lunion, and loss of life or limb. The patient and family understood the risks and benefits and elect ed to proceed. PROCEDURE IN DETAIL: Time out was performed designating the patient's right lower extremity as the o perative site based on sight, consents, and markings. At completion of timeout, the patient's right hip was prepped and draped in sterile fashion. After trials in place, we reduced him under fluorosco pic guidance before prepping on the fracture table. We elected to place our oblique incision, split the IT band, came down, found the patient's greater trochanter, placed a guide pin in the medial late ral, looked under x-ray to sure we are in the right position of our opening reamer. I chose a size 1 1 nail, felt 12 might be slightly tight, fasted in position. We then drilled, AP and lateral radiogr aphs, 105 and placed 100 mm screw and compressed the screw into place, locked down the gate and backe d off a half turn to allow for compression. We then moved distally, lateral skin incision, distal la teral extensions and pulled distally to place our compression screw. We drilled and filled our compr ession screw. We then washed, closed with 2-0, and boris. The patient will be weightbearing as tolerated, receive 24 hours of antibiotics. The patient may be continued on his DVT prophylaxis and will be restarted immediately postoperatively. The patient will be admitted back to the Trauma Service.
--- NOTE | 2017-08-16 18:25 | PRG ---
DATE OF SERVICE: 08/16/2017 SUBJECTIVE: Patient was seen and examined at bedside and overnight events noted. Patient denies any shortness of breath or chest pain or palpitation. No history of nausea or vomiting or diarrhea or f ever or chills or cramps. OBJECTIVE: GENERAL: This is a obese male in no apparent distress. VITAL SIGNS: Temperature 98.0, pulse 70, respiratory rate 16 and blood pressure 157/78. HEENT: Atraumatic and normocephalic. Oral mucosa is moist. NECK: Supple. CARDIOVASCULAR: S1 and S2 heard. Rate and rhythm regular. RESPIRATORY: Clear to auscultation. GASTROINTESTINAL: Abdomen is soft. MUSCULOSKELETAL: No tenderness. No edema. DERMATOLOGIC: No skin rash. NEUROLOGIC: Alert, awake and oriented x3. No focal neurologic deficits. Moving all the extremities . PSYCHIATRIC: Mood and affect normal. LABORATORY DATA: Potassium is 3.8, BUN is 41 and creatinine is 3.2. ASSESSMENT AND PLAN: 1. Acute kidney injury, on dialysis. We will continue to monitor. Avoid nephrotoxins. 2. Hyperkalemia, replace and monitor. 3. Edema, controlled. 4. Fluid overload. 5. Anemia, mild. Plan is to monitor renal function closely.
--- NOTE | 2017-08-16 19:10 | RAD ---
TWO VIEWS RIGHT HIP: 08/16/2017 HISTORY: Post ORIF of right hip. COMPARISON: 08/14/2017 FINDINGS: There has been interval post-surgical change related to internal fixation of the intertrochanteric ri ght hip fracture with antegrade intramedullary natalio with dynamic compression screw and distal interloc jagdeep screw in place. No hardware complication is seen. There is improvement in alignment of fractur e fragments. Subcutaneous emphysema seen about the hip laterally with skin clips also seen laterally related to recent post-surgical changes. Vascular calcifications seen in the femoral arteries. IMPRESSION: Post-surgical changes related to internal fixation of intertrochanteric right hip fracture. POS: TAHMINA
[2017-08-16] MEDS: Senokot S 8.6-50 MG TAB PO SCH (20:29)
[2017-08-16] MEDS: Famotidine 20 MG TAB PO SCH (20:30)
[2017-08-16] MEDS: CEFAZOLIN 1 GM, Syringe 2.5 ML in Sterile Water 7.5 ML SLOW IVP SCH (20:34)
[2017-08-17] MEDS: Morphine 4 MG/ML VIAL SLOW IVP PRN ×2 (04:03→16:45)
[2017-08-17] MEDS: Sodium Chloride 0.9% 1,000 ML IV SCH (04:08)
[2017-08-17] MEDS: CEFAZOLIN 1 GM, Syringe 2.5 ML in Sterile Water 7.5 ML SLOW IVP SCH (04:42)
[2017-08-17 05:45] LABS: Hematocrit 33.8 % (42.0-52.0); Mean Platelet Volume 7.3 fL (7.4-10.4); Red Blood Cell (RBC) Count 3.73 mill/uL (4.70-6.10); White Blood Cell (WBC) Count 11.6 thou/uL (4.8-10.8)
[2017-08-17] MEDS: Senokot S 8.6-50 MG TAB PO SCH ×2 (08:52→22:00)
[2017-08-17] MEDS: ALPRAZolam 0.5 MG TAB PO SCH ×3 (08:53→22:00)
[2017-08-17] MEDS: Aspirin 81 mg Enteric Coated Tablet PO SCH (08:55)
[2017-08-17] MEDS: Carvedilol 6.25 MG TAB PO SCH ×2 (08:56→22:00)
[2017-08-17] MEDS: Clopidogrel Bisulfate 75 MG TAB PO SCH (08:56)
[2017-08-17] MEDS ORDERED: Furosemide 40 MG/4 ML VIAL SLOW IVP SCH (11:00)
[2017-08-17] MEDS: traMADol HCl 50 MG TAB PO PRN ×2 (11:08→17:58)
[2017-08-17] MEDS: Acetaminophen 500 MG TAB PO SCH ×3 (11:14→23:52)
[2017-08-17 11:37] LABS: Anion Gap 16 mmol/L (10-20); BUN (Urea Nitrogen) 47 mg/dL (8.4-25.7); Calc. Creatinine Clearance 36 mL/min (70-130); Carbon Dioxide 17 mmol/L (23-31); Chloride 97 mmol/L (98-107); Estimated GFR-MDRD 21
[2017-08-17] MEDS: Insulin Detemir 100 UNITS/ML 15 UNITS in Syringe 0 ML SC SCH ×2 (12:20→22:00)
--- NOTE | 2017-08-17 14:40 | PRG ---
DATE OF SERVICE: 08/17/2017 Jc Mendez is a 61-year-old male undergoing right hip replacement. He has chronic kidney dis ease. His kidneys have improved. Urine output has improved such that he probably does not need more dialysis; however, with his chronic kidney disease he probably will need dialysis access in the futu re. I have asked him to avoid IV blood draws and IVs in his antecubital area. He has good veins for a fistula. He should follow up with me in the future should a fistula be necessary. I have spoken with Dr. Barth and they will see him as an outpatient and follow his chronic kidney disease. At this point, I will sign off and see as needed.
[2017-08-17] MEDS: Insulin Regular 300 UNITS/3 ML VIAL SC PRN ×2 (16:45→22:00)
--- NOTE | 2017-08-17 17:30 | PRG ---
DATE OF SERVICE: 08/17/2017 This is Silvia Martins nurse practitioner dictating daily progress note for Dr. Kj Rosado. SUBJECTIVE: This is a 61-year-old male status post fall with right hip fracture. Postop day #1, status post ORIF right hip. No significant events noted overnight. He reports the pain is well controlled. Continues on hemodialysis on Wednesday, Wednesday, and Wednesday. OBJECTIVE: VITAL SIGNS: Temperature 97.5, pulse 80, blood pressure 166/75, respirations 20. GENERAL: 61-year-old male lying in bed in no acute distress. HEENT: Atraumatic, normocephalic. PULMONARY: Lungs clear bilaterally. No respiratory distress. CARDIOVASCULAR: Regular rate and rhythm. ABDOMEN: Soft, nontender, nondistended. MUSCULOSKELETAL: Left BKA. Neurovascular intact. Cap refill brisk. NEUROLOGIC: Awake, alert, oriented x3. No neuro deficits. ASSESSMENT: 1. 61-year-old male status post ground level fall. 2. Status post open reduction internal fixation right hip fracture. 3. Acute kidney injury on hemodialysis. PLAN: 1. Continue postoperative care and working with physical therapy. 2. Restart home aspirin and Plavix. 3. Restart insulin at lower dose. Continue to monitor. 4. Restart Coreg 12.5. Continue to monitor. 5. Stop IV fluids. The patient was seen and examined with attending trauma surgeon. MIGUELITO
[2017-08-17] MEDS: Famotidine 20 MG TAB PO SCH (22:00)
--- NOTE | 2017-08-17 23:10 | PRG ---
DATE OF SERVICE: 08/17/2017 SUBJECTIVE: Patient was seen and examined at bedside and overnight events noted. Patient denies any shortness of breath or chest pain or palpitation. No history of nausea or vomiting or diarrhea or f ever or chills or cramps. OBJECTIVE: GENERAL: This is a well-built male, in no apparent distress. VITAL SIGNS: Temperature 98.2, pulse 80, respiratory rate 20, blood pressure 168/74. HEENT: Atraumatic, normocephalic, Oral mucosa is moist. NECK: Supple. CARDIOVASCULAR: S1, S2 heard, rate and rhythm regular. RESPIRATORY: Clear to auscultation. GASTROINTESTINAL: Abdomen is soft. MUSCULOSKELETAL: No tenderness, no edema. DERMATOLOGIC: No skin rash. NEUROLOGIC: Alert and awake and oriented x3. No focal neurologic deficits. Moving all the extremit ies. PSYCHIATRIC: Mood and affect normal. LABORATORY DATA: Potassium is 3.9, BUN is 47, creatinine is 3.01. ASSESSMENT AND PLAN: 1. Acute kidney injury on hemodialysis. Plan is to monitor renal function. We will hold dialysis f or now. The patient is breathing better. He is not hypoxic currently and edema seems to be better. Continue on Lasix and we will monitor. 2. Anemia, mild. 3. Edema, as above. 4. Hyponatremia, limit fluid intake. 5. Hyperglycemia. 6. Acidosis. Plan is to monitor renal function. No dialysis today. We will recheck labs in the morning. We will follow.
[2017-08-18] MEDS: Morphine 4 MG/ML VIAL SLOW IVP PRN (03:27)
[2017-08-18 05:32] LABS: Hematocrit 31.5 % (42.0-52.0); Mean Platelet Volume 7.1 fL (7.4-10.4); Red Blood Cell (RBC) Count 3.51 mill/uL (4.70-6.10); White Blood Cell (WBC) Count 10.5 thou/uL (4.8-10.8)
[2017-08-18] MEDS: Acetaminophen 500 MG TAB PO SCH ×4 (05:33→23:45)
[2017-08-18] MEDS: Insulin Regular 300 UNITS/3 ML VIAL SC PRN ×3 (05:50→20:42)
[2017-08-18 05:59] LABS: Anion Gap 12 mmol/L (10-20); BUN (Urea Nitrogen) 44 mg/dL (8.4-25.7); Calc. Creatinine Clearance 43 mL/min (70-130); Calcium 7.9 mg/dL (7.8-10.44); Carbon Dioxide 20 mmol/L (23-31); Chloride 97 mmol/L (98-107); Estimated GFR-MDRD 25
--- NOTE | 2017-08-18 08:45 | RAD ---
PORTABLE CHEST: History: Shortness of breath. FINDINGS: Heart size is enlarged. Mild vascular engorgement without overt interstitial edema is noted. IMPRESSION: Cardiomegaly with mild vascular engorgement. POS: JULIO CESARH
[2017-08-18] MEDS: ALPRAZolam 0.5 MG TAB PO SCH (09:48)
[2017-08-18] MEDS ORDERED: Furosemide 100 MG/10 ML VIAL SLOW IVP SCH ×2 (11:45→16:00)
[2017-08-18] MEDS: Clopidogrel Bisulfate 75 MG TAB PO SCH (12:03)
[2017-08-18] MEDS: Carvedilol 6.25 MG TAB PO SCH ×2 (12:04→20:39)
[2017-08-18] MEDS: Aspirin 81 mg Enteric Coated Tablet PO SCH (12:04)
--- NOTE | 2017-08-18 12:06 | PRG ---
DATE OF SERVICE: 08/18/2017 This is Silvia Martins ELECTROSTATIC POWDER COATING TECHNICIAN dictating for Kj Rosado DO SUBJECTIVE: This is a 61-year-old male, status post fall with right hip fracture. Postop day #2, status post open reduction internal fixation, right hip. Pain has been well controlled. He has been on hemodialysis due to acute kidney injury, which now seems to be improving. No dialysis today per Nephrology. reports patient is not eating and has had extremely poor appetite and progressive weakness for several weeks prior to this injury. Pt reports he is more tired today than he has been but has gotten up with PT. OBJECTIVE: VITAL SIGNS: Temperature 98.4, pulse 80, respirations 18, O2 sat 94%, blood pressure 111/56. GENERAL: Lying in bed in no acute distress. HEENT: Atraumatic, normocephalic. PULMONARY: Lungs are clear bilaterally. CARDIOVASCULAR: Regular rate and rhythm. ABDOMEN: Soft, nontender, nondistended. MUSCULOSKELETAL: Left BKA. Neurovascularly intact. Cap refill brisk. NEUROLOGIC: Awake, alert, oriented x3. No neuro deficits. ASSESSMENT: 1. A 61-year-old male status post ground-level fall. 2. Status post open reduction internal fixation, right hip fracture. 3. Acute kidney injury, resolving. 4. Poor appetite PLAN: 1. Continue postoperative care as ordered. 2. Continue mobilizing with physical and occupational therapy. 3. Continue home medications as ordered. 4. Continue recommendations by Nephrology Service. 5. Start Megace for appetite stimulation and Nepro supplements. 6. Pt has been accepted to swing bed when medically stable for discharge. The patient was seen and examined with attending trauma surgeon. MIGUELITO
[2017-08-18] MEDS: Senokot S 8.6-50 MG TAB PO SCH ×2 (12:10→20:39)
[2017-08-18] MEDS: Insulin Detemir 100 UNITS/ML 15 UNITS in Syringe 0 ML SC SCH ×2 (12:45→20:40)
[2017-08-18] MEDS ORDERED: Potassium Chloride 20 MEQ TAB PO SCH (14:15)
[2017-08-18] MEDS: Famotidine 20 MG TAB PO SCH (20:42)
--- NOTE | 2017-08-18 23:35 | PRG ---
DATE OF SERVICE: 08/18/2017 SUBJECTIVE: Patient is having mild shortness of breath on exertion. OBJECTIVE: GENERAL: This is an obese male in no apparent distress. VITAL SIGNS: Temperature 94, pulse 89, respiratory rate 18 and blood pressure 144/76. HEENT: Atraumatic and normocephalic. Oral mucosa is moist. NECK: Supple. CARDIOVASCULAR: S1 and S2 heard. Rate and rhythm regular. RESPIRATORY: Chest with crackles. GASTROINTESTINAL: Abdomen is soft. MUSCULOSKELETAL: No tenderness. No edema. DERMATOLOGIC: No skin rash. NEUROLOGIC: Alert, awake and oriented x3. No focal neurologic deficits. Moving all the extremities . PSYCHIATRIC: Mood and affect normal LABORATORY DATA: Potassium is 3.3, BUN is 44 and creatinine is 2.5. ASSESSMENT AND PLAN: 1. Acute kidney injury, was on hemodialysis. No indication for dialysis. We will attempt to use a high dose of Lasix for urine output. The patient's renal function is getting better except for fluid overload, but which I think could be medically managed and avoid dialysis at this point. We will co ntinue close monitoring. 2. Anemia. 3. Edema. 4. Hyponatremia. 5. Hyperglycemia. 6. Acidosis. Plan is to continue on Lasix 80 mg IV b.i.d. and we will follow.
[2017-08-19 05:30] LABS: Hematocrit 32.2 % (42.0-52.0); Mean Platelet Volume 7.6 fL (7.4-10.4); Red Blood Cell (RBC) Count 3.61 mill/uL (4.70-6.10); White Blood Cell (WBC) Count 14.2 thou/uL (4.8-10.8)
[2017-08-19 05:36] LABS: Anion Gap 10 mmol/L (10-20); BUN (Urea Nitrogen) 47 mg/dL (8.4-25.7); Calc. Creatinine Clearance 48 mL/min (70-130); Calcium 7.7 mg/dL (7.8-10.44); Carbon Dioxide 21 mmol/L (23-31); Chloride 100 mmol/L (98-107); Estimated GFR-MDRD 29; Magnesium 1.9 mg/dL (1.6-2.6)
[2017-08-19] MEDS: Acetaminophen 500 MG TAB PO SCH ×3 (05:41→17:51)
[2017-08-19] MEDS: Furosemide 100 MG/10 ML VIAL SLOW IVP SCH ×2 (05:42→15:41)
[2017-08-19] MEDS: Senokot S 8.6-50 MG TAB PO SCH ×2 (07:44→20:10)
[2017-08-19] MEDS: Carvedilol 6.25 MG TAB PO SCH ×2 (07:44→20:10)
[2017-08-19] MEDS: Megestrol Acetate 40 MG TAB PO SCH (07:44)
[2017-08-19] MEDS: Clopidogrel Bisulfate 75 MG TAB PO SCH (07:48)
[2017-08-19] MEDS: Aspirin 81 mg Enteric Coated Tablet PO SCH (07:48)
[2017-08-19] MEDS: Insulin Detemir 100 UNITS/ML 15 UNITS in Syringe 0 ML SC SCH ×2 (07:57→20:13)
[2017-08-19 09:31] LABS: Band 11 % (5-11); Neutrophil 76 % (42-75)
--- NOTE | 2017-08-19 16:17 | PRG ---
DATE OF SERVICE: 08/19/2017 This is Silvia Martins NP dictating for Kj Rosado DO SUBJECTIVE: This is a 61-year-old male status post fall with right hip fracture. Postoperative day #3, status post ORIF right hip. Pain has been well controlled. He was previously on hemodialysis due to acute kidney injury, however, that was stopped a couple of days ago. He continues to be followed by Nephrology. Yesterday reported the patient was not eating and has had extremely poor appetite and progressive weakness for several weeks prior to this injury. The patient was started on Megace one day ago. Supplements were also added to the patient's meals 3 times daily. The patient reports that today he feels stronger, he has eaten the majority of his breakfast this morning and overall feels better. OBJECTIVE: VITAL SIGNS: Temperature 97.5, pulse 69, respirations 16, O2 sat 93%, and blood pressure 96/56. GENERAL: Well-nourished, well-developed, no acute distress. HEENT: Atraumatic, normocephalic. PULMONARY: No respiratory distress. LUNGS: Bilateral breath sounds clear. No respiratory distress. CARDIOVASCULAR: Regular rate and rhythm. ABDOMEN: Soft, nontender, nondistended. MUSCULOSKELETAL: Left BKA. Neurovascularly intact. Cap refill brisk. NEUROLOGIC: Awake, alert, oriented x3. No neuro deficits. ASSESSMENT: 1. A 61-year-old male status post ground level fall. 2. Status post open reduction and internal fixation right hip fracture. 3. Acute kidney injury, resolving. 4. Poor appetite, improving. PLAN: 1. Continue postoperative care as ordered. 2. Continue mobilizing with physical and occupational therapy. 3. Continue recommendations by Nephrology Service. At this time, no further dialysis is recommended. 4. Monitor appetite and intake. Encouraged the patient to be compliant with supplements 3 times daily. 5. The patient has been accepted to swing bed when medically stable for discharge. The patient was seen and examined with Dr. Rosado on trauma rounds. [facility]PITAL[facility]areed
[2017-08-19] MEDS ORDERED: Potassium Chloride 20 MEQ TAB PO SCH ×2 (18:30→19:00)
[2017-08-19] MEDS ORDERED: Metolazone 5 MG TAB PO SCH (19:00)
[2017-08-19] MEDS: Famotidine 20 MG TAB PO SCH (20:11)
[2017-08-19] MEDS: Insulin Regular 300 UNITS/3 ML VIAL SC PRN (20:19)
--- NOTE | 2017-08-19 21:27 | PRG ---
DATE OF SERVICE: 08/19/2017 SUBJECTIVE: Patient was seen and examined at bedside and overnight events noted. Patient denies any shortness of breath or chest pain or palpitation. No history of nausea or vomiting or diarrhea or f ever or chills or cramps. OBJECTIVE: GENERAL: This is a well-built male in no apparent distress. VITAL SIGNS: Temperature 97.9, pulse 70, respiratory rate 18, blood pressure 124/56. HEENT: Atraumatic, normocephalic. Oral mucosa is moist. NECK: Supple. CARDIOVASCULAR: S1, S2 heard. Rate and rhythm regular. RESPIRATORY: Clear to auscultation. GASTROINTESTINAL: Abdomen is soft. MUSCULOSKELETAL: No tenderness, no edema. DERMATOLOGIC: No skin rash. NEUROLOGIC: Alert and awake and oriented x3. No focal neurologic deficits. Moving all the extremitie s. PSYCHIATRIC: Mood and affect normal. LABORATORY DATA: Potassium is 3.1, BUN is 47, creatinine is 2.2. ASSESSMENT AND PLAN: 1. Acute kidney injury. No indication for dialysis. The patient is making good amount of urine. W e will continue on Lasix as tolerated. We will add metolazone. 2. Anemia. 3. Edema. We will add metolazone. 4. Hyperglycemia. 5. Acidosis. Plan to discharge the patient on metolazone. Continue with Lasix, monitor renal function and replace potassium.
[2017-08-20] MEDS: Acetaminophen 500 MG TAB PO SCH ×4 (00:10→17:16)
[2017-08-20] MEDS: Furosemide 100 MG/10 ML VIAL SLOW IVP SCH ×2 (05:43→17:15)
[2017-08-20 06:15] LABS: Anion Gap 11 mmol/L (10-20); BUN (Urea Nitrogen) 47 mg/dL (8.4-25.7); Calc. Creatinine Clearance 59 mL/min (70-130); Carbon Dioxide 20 mmol/L (23-31); Chloride 100 mmol/L (98-107); Estimated GFR-MDRD 36
[2017-08-20 06:48] VITALS: BMI 34.2
[2017-08-20] MEDS: Senokot S 8.6-50 MG TAB PO SCH ×2 (08:54→20:39)
[2017-08-20] MEDS: Aspirin 81 mg Enteric Coated Tablet PO SCH (08:55)
[2017-08-20] MEDS: Carvedilol 6.25 MG TAB PO SCH ×2 (08:55→20:39)
[2017-08-20] MEDS: Clopidogrel Bisulfate 75 MG TAB PO SCH (08:55)
[2017-08-20] MEDS: Megestrol Acetate 40 MG TAB PO SCH (08:55)
[2017-08-20] MEDS: Potassium Chloride 20 MEQ TAB PO SCH ×2 (08:55→17:16)
[2017-08-20] MEDS: Insulin Detemir 100 UNITS/ML 15 UNITS in Syringe 0 ML SC SCH ×2 (08:56→20:40)
[2017-08-20] MEDS: Insulin Regular 300 UNITS/3 ML VIAL SC PRN ×2 (12:00→17:50)
[2017-08-20] MEDS ORDERED: ALPRAZolam 0.5 MG TAB PO SCH (13:00)
--- NOTE | 2017-08-20 14:50 | PRG ---
DATE OF SERVICE: 08/20/2017 ATTENDING PHYSICIAN: Kj Rosado DO SUBJECTIVE: This is a 61-year-old male status post fall and right hip fracture , postoperative day 4, status post ORIF of right hip. Pain is well controlled. He was previously on hemodialysis due to acute kidney injury, however, that has been resolving and hemodialysis has been stopped this week. He continues to be followed by Nephrology. Patient was started on Megace 2 days ago due to poor appetite and progressive weakness for several weeks prior to this injury. Supplements were also added to patient's meals 3 times daily. The patient reports that he has been having increased dietary intake and has been compliant taking his supplements. He feels much stronger and better today. He is able to work with physical therapy today. He anticipates [facility] to a [facility] facility [facility] 1 day. OBJECTIVE: VITAL SIGNS: Temperature 98.4, pulse 75, respirations 16, blood pressure 151/ 84. GENERAL: Well nourished, well developed, in no acute distress. HEENT: Atraumatic, normocephalic. PULMONARY: No respiratory distress. LUNGS: Bilateral breath sounds clear. CARDIOVASCULAR: Regular rate and rhythm. ABDOMEN: Soft, nontender, nondistended. MUSCULOSKELETAL: Left BKA. Neurovascularly intact. Cap refill brisk. NEUROLOGIC: Awake, alert, and oriented x3. No neuro deficits. ASSESSMENT: 1. A 61-year-old male status post ground level fall. 2. Status post open reduction and internal fixation of right hip fracture. 3. Resolving acute kidney injury. 4. Resolving poor appetite. PLAN: 1. Continue care as ordered. 2. Continue mobilizing with physical and occupational therapy. 3. Continue recommendations by Nephrology Service. Plan to discharge the patient on metolazone, continue Lasix, monitor renal function and replace potassium. 4. Continue to monitor appetite and intake. 5. The patient has been accepted to a swing bed and anticipate patient will discharge to swing bed in [place] tomorrow. The patient was seen and examined with Dr. Rosado on morning rounds. MIGUELITO
[2017-08-20] MEDS ORDERED: Metolazone 5 MG TAB PO SCH (16:00)
[2017-08-20] MEDS: Famotidine 20 MG TAB PO SCH (20:41)
--- NOTE | 2017-08-20 22:54 | PRG ---
DATE OF SERVICE: 08/20/2017 SUBJECTIVE: Patient was seen and examined at bedside and overnight events noted. Patient denies any shortness of breath or chest pain or palpitation. No history of nausea or vomiting or diarrhea or f ever or chills or cramps. OBJECTIVE: GENERAL: This is an obese male in no acute distress. VITAL SIGNS: Temperature 97.9, pulse 80, respiratory rate 20, blood pressure 135/75. HEENT: Atraumatic, normocephalic, oral mucosa is moist. NECK: Supple. CARDIOVASCULAR: S1, S2 heard, rate and rhythm regular. RESPIRATORY: Crackles present. GASTROINTESTINAL: Abdomen is soft. MUSCULOSKELETAL: No tenderness, no edema. DERMATOLOGIC: No skin rash. NEUROLOGIC: Alert and awake and oriented x3, no focal neurologic deficits. Moving all the extremiti es. PSYCHIATRIC: Mood and affect normal. LABORATORY DATA: Potassium is 3.3, sodium 128, BUN 47, creatinine was 1.9. ASSESSMENT AND PLAN: 1. Acute kidney injury on chronic kidney disease, end-stage renal function continues to get better a nd good urine output. 2. Fluid overload. We will continue on Lasix and will add one dose of metolazone. 3. Hyponatremia, limit fluid intake. 4. Hyperkalemia, on potassium supplements. 5. Acidosis. 6. Edema. 7. Hypertension, stable. Plan is to continue on diuretics, monitor renal function which is getting better.
[2017-08-21] MEDS: Acetaminophen 500 MG TAB PO SCH ×4 (00:41→17:21)
[2017-08-21] MEDS: Furosemide 100 MG/10 ML VIAL SLOW IVP SCH ×2 (06:09→15:11)
[2017-08-21] MEDS: Insulin Regular 300 UNITS/3 ML VIAL SC PRN ×3 (06:26→17:21)
[2017-08-21 07:25] LABS: Anion Gap 14 mmol/L (10-20); BUN (Urea Nitrogen) 45 mg/dL (8.4-25.7); Calc. Creatinine Clearance 58 mL/min (70-130); Calcium 8.3 mg/dL (7.8-10.44); Carbon Dioxide 23 mmol/L (23-31); Chloride 94 mmol/L (98-107); Estimated GFR-MDRD 35; Magnesium 1.7 mg/dL (1.6-2.6)
[2017-08-21] MEDS: Aspirin 81 mg Enteric Coated Tablet PO SCH (09:49)
[2017-08-21] MEDS: Potassium Chloride 20 MEQ TAB PO SCH ×2 (09:49→17:21)
[2017-08-21] MEDS: Clopidogrel Bisulfate 75 MG TAB PO SCH (09:50)
[2017-08-21] MEDS: Insulin Detemir 100 UNITS/ML 15 UNITS in Syringe 0 ML SC SCH (09:50)
[2017-08-21] MEDS: Carvedilol 6.25 MG TAB PO SCH (09:50)
[2017-08-21] MEDS: Megestrol Acetate 40 MG TAB PO SCH (09:52)
[2017-08-21] MEDS: Senokot S 8.6-50 MG TAB PO SCH (09:52)
--- NOTE | 2017-08-21 14:51 | PRG ---
DATE OF SERVICE: 08/21/2017 SUBJECTIVE: Patient was seen and examined at bedside and overnight events noted. Patient denies any shortness of breath or chest pain or palpitation. No history of nausea or vomiting or diarrhea or f ever or chills or cramps. OBJECTIVE: GENERAL: This is an obese male in no apparent distress. VITAL SIGNS: Temperature 98.3, pulse 79, respiratory rate 18, blood pressure 138/77. HEENT: Atraumatic, normocephalic. Oral mucosa is moist. NECK: Supple CARDIOVASCULAR: Crackles are present. RESPIRATORY: Clear to auscultation. GASTROINTESTINAL: Abdomen is soft. MUSCULOSKELETAL: No tenderness, no edema. DERMATOLOGIC: No skin rash. NEUROLOGIC: Alert and awake and oriented x3. No focal neurologic deficits. Moving all the extremit ies. PSYCHIATRIC: Mood and affect normal LABORATORY DATA: Creatinine is 1.94, BUN is 45, sodium is 127. ASSESSMENT AND PLAN: 1. Acute kidney injury on chronic kidney disease stage 3. Renal function much better and making goo d amount of urine and will continue on Lasix. 2. Fluid overload. We will continue on Lasix. Possible discharge in next 24-48 hours. 3. Hyponatremia, limit fluid intake. 4. 5. Acidosis. 6. Edema. 7. Cardiorenal syndrome. 8. Hypertension. 9. Continue on Lasix, now metolazone today. We will follow. Limit fluid intake.
[2017-08-21] MEDS ORDERED: traMADol HCl 50 MG TAB PO SCH (16:00)
[2017-08-21 16:14] VITALS: BP 146/76; TEMP 97.8
--- NOTE | 2017-08-21 18:09 | DIS ---
DATE OF ADMISSION: 08/15/2017 DATE OF DISCHARGE: 08/21/2017 ADMITTING PHYSICIAN: Dr. Ignacio Stock. CONSULTING PHYSICIAN: Dr. Swanson, Cardiology; Dr. Clement Barth, Nephrology, and Dr. Powell, Orthopedics. REASON FOR HOSPITALIZATION: Ground level fall with right hip fracture. HOSPITAL DIAGNOSES: 1. Right intertrochanteric hip fracture. 2. History of chronic kidney disease with baseline creatinine of 1.4 in July, which increased to 3.6 on the day of admission. DISCHARGE CONDITION: Stable. Chronic condition is returning to baseline. He is cleared for discharge by Orthopedics and Nephrology service. SUMMARY OF HOSPITALIZATION: A 61-year-old male who was maneuvering around his bathroom and sustained a ground level fall on 08/15/2017. He was taken to an outside facility where he was noted to have a right intertrochanteric hip fracture. He was then transferred to [facility]. He was admitted to the hospital by Trauma services. Dr. Powell of Orthopedics was consulted. Dr. Ahuja was consulted for cardiac clearance. Dr. Clement Barth was consulted for chronic kidney disease with acute kidney injury. He was taken to the operating room by Dr. Powell for an ORIF of right hip fracture. He was then managed on the surgical floor by Trauma services and consulting services. He required hemodialysis for acute kidney injury. Kidney function improved postoperatively and hemodialysis was able to be stopped. He did have issues with appetite postoperatively requiring appetite stimulation with medications. He mobilized with physical and occupational therapy who recommended senior care on discharge. Case management was consulted for discharge planning. He was accepted to a senior care facility in [facility]. On postoperative day #5, he was cleared for discharge by Nephrology. He was discharged to senior care facility and is to follow up with Dr. Pedro Powell, Dr. Clement Barth and his PCP. Discharge instructions, follow up information, and return precautions were given to patient. Per Nephrology recommendations, he was discharged on 2 grams sodium diet with 1500 mL fluid restriction and continuation of Lasix. History, assessment, physical exam and discharge plan was discussed with Dr. Rosado. MIGUELITO
[2017-08-21] MEDS ORDERED: Furosemide 80 MG TAB PO SCH (21:00)
--- NOTE | 2017-09-21 14:17 | EKG ---
Test Reason : Blood Pressure : / mmHG Vent. Rate : 087 BPM Atrial Rate : 087 BPM P-R Int : 158 ms QRS Dur : 090 ms QT Int : 420 ms P-R-T Axes : 034 -19 025 degrees QTc Int : 505 ms Normal sinus rhythm Possible Left atrial enlargement Prolonged QT Abnormal ECG No change Confirmed by AILEEN MAGALLON D.O. ([id number]), editor producer ZINA CARBONE ([id number] on 09/21/2017 2:17:28 PM Referred By: Confirmed By:AILEEN MAGALLON D.O.
--- NOTE | 2017-09-21 14:17 | EKG ---
Test Reason : Blood Pressure : / mmHG Vent. Rate : 078 BPM Atrial Rate : 078 BPM P-R Int : 160 ms QRS Dur : 092 ms QT Int : 434 ms P-R-T Axes : 033 -22 014 degrees QTc Int : 494 ms Normal sinus rhythm Possible Left atrial enlargement Nonspecific ST abnormality Prolonged QT Abnormal ECG Confirmed by AILEEN MAGALLON D.O. ([id number]), assignment editor ZINA CARBONE ([id number] on 09/21/2017 2:16:52 PM Referred By: Confirmed By:AILEEN MAGALLON D.O.
== END 2017-08-21 17:54 | DRG 481 ==
LOC: ERS 23:47 → 2NO 08-15 01:25 → SURG A 08-16 13:27 → SJJU 08-16 15:29
PROVIDERS: ADMIT Specialist; ATTEND Specialist
PROC: 06HN33Z Insertion of Infusion Device into Left Femoral Vein, Percutaneous Approach (ICD-10-PCS; 2017-08-15)
PROC: B54CZZA Ultrasonography of Left Lower Extremity Veins, Guidance (ICD-10-PCS; 2017-08-15)
PROC: 0QS606Z Reposition Right Upper Femur with Intramedullary Internal Fixation Device, Open Approach (ICD-10-PCS; principal; 2017-08-16)
PROC: 5A1D70Z Performance of Urinary Filtration, Intermittent, Less than 6 Hours Per Day (ICD-10-PCS; 2017-08-16)
DX: S72.141A Displaced intertrochanteric fracture of right femur, initial encounter for closed fracture (principal); N17.9 Acute kidney failure, unspecified; E87.2 Acidosis; I13.0 Hypertensive heart and chronic kidney disease with heart failure and stage 1 through stage 4 chronic kidney disease, or unspecified chronic kidney disease; N18.3 Chronic kidney disease, stage 3 (moderate); I42.9 Cardiomyopathy, unspecified; I50.9 Heart failure, unspecified; E87.1 Hypo-osmolality and hyponatremia; E11.22 Type 2 diabetes mellitus with diabetic chronic kidney disease; Z68.34 Body mass index [BMI] 34.0-34.9, adult; E66.9 Obesity, unspecified; Z89.512 Acquired absence of left leg below knee; I25.10 Atherosclerotic heart disease of native coronary artery without angina pectoris; Z95.5 Presence of coronary angioplasty implant and graft; Z79.01 Long term (current) use of anticoagulants; Z79.82 Long term (current) use of aspirin; Z79.4 Long term (current) use of insulin; W18.30XA Fall on same level, unspecified, initial encounter; Y92.012 Bathroom of single-family (private) house as the place of occurrence of the external cause; I25.2 Old myocardial infarction; F41.9 Anxiety disorder, unspecified; Z88.2 Allergy status to sulfonamides; Z87.891 Personal history of nicotine dependence; E87.6 Hypokalemia; E87.70 Fluid overload, unspecified; E87.5 Hyperkalemia; D64.9 Anemia, unspecified; E11.65 Type 2 diabetes mellitus with hyperglycemia; E78.5 Hyperlipidemia, unspecified; Z89.422 Acquired absence of other left toe(s); E11.42 Type 2 diabetes mellitus with diabetic polyneuropathy; Z95.820 Peripheral vascular angioplasty status with implants and grafts
CPT/HCPCS: 36415; 36416; 71010; 76001; 80048; 80053; 82553; 83735; 83880; 84100; 84484; 85025; 85027; 85610; 85730; 86704; 86706; 86803; 86850; 86900; 86901; 87340; 90935; 93005; 93010; 93306; 93970; 96361; 96374; A4216; C1713; G0257; G0365; G8978-GP-CM; G8979-GP-CL; G8987-GO-CL; G8988-GO-CJ; J0360; J0690; J1815; J1940; J2250; J2270; J2405; J2704; J2765; J3010; J3475; J3480; J7050; S0028; S0179

== ENCOUNTER 2017-12-14 11:37 | Inpatient (IN) | payer MEDICARE ==
[2017-12-14 12:21] LABS: Hemoglobin 9.9 g/dL (14.0-18.0); Mean Corpuscular Volume 90.8 fl (80.0-94.0); Mean Platelet Volume 7.1 fL (7.4-10.4); Platelet Count 310 thou/uL (130-400); RBC Distribution Width 13.3 % (11.5-14.5); Red Blood Cell (RBC) Count 3.31 mill/uL (4.70-6.10); White Blood Cell (WBC) Count 13.6 thou/uL (4.8-10.8)
[2017-12-14 12:41] LABS: ALT (SGPT) 10 U/L (8-55); AST (SGOT) 10 U/L (5-34); Albumin 2.5 g/dL (3.4-4.8); Alkaline Phosphatase 257 U/L (40-150); Anion Gap 15 mmol/L (10-20); BUN (Urea Nitrogen) 44 mg/dL (8.4-25.7); Band 8 % (5-11); Bilirubin, Total 0.3 mg/dL (0.2-1.2); Calc. Creatinine Clearance 0 mL/min (70-130); Calcium 8.4 mg/dL (7.8-10.44); Carbon Dioxide 21 mmol/L (23-31); Chloride 94 mmol/L (98-107); Estimated GFR-MDRD 18; Globulin 3.4 g/dL (2.4-3.5); Glucose 154 mg/dL (80-115); Lymphocytes 1 % (21-51); MDiff Complete? YES; Metamyelocyte 2 % (0-0); Monocytes 2 % (0-10); Myelocyte 1 % (0-0); Neutrophil 86 % (42-75); Potassium 3.7 mmol/L (3.5-5.1); Protein, Total 5.9 g/dL (5.8-8.1); Sodium 126 mmol/L (136-145)
[2017-12-14 13:01] LABS: Bilirubin Negative (Negative); Blood, Urine Large (Negative); Clarity TURBID (Clear); Glucose, Urine (Dipstick) 250 mg/dL (Negative); Leukocyte Large (Negative); Nitrite Negative (Negative); Protein, Urine (Dipstick) 300 mg/dL (Neg-Trace); Urobilinogen 0.2 mg/dL (0.2-1.0); pH, Urine 5.5 (5.0-9.0)
[2017-12-14 13:03] LABS: Bacteria/HPF None Seen HPF (None Seen)
[2017-12-14 13:06] LABS: Pathc Cast-AUWi Flag 6.76 (0-2.49); Yeast-AUWi Flag 1131.8 (0-25.0)
[2017-12-14 13:15] LABS: Hyaline Casts/LPF 0-3 HYALINE CAST LPF (0-3 Hyaline); Other Casts/LPF None Seen LPF (0-3 Hyaline); Yeast-All Forms None Seen HPF (None Seen)
[2017-12-14] MEDS ORDERED: ALPRAZolam 0.5 MG TAB PO PRN (15:25)
[2017-12-14] MEDS ORDERED: Bisacodyl 10 MG SUPP PR PRN (15:25)
[2017-12-14] MEDS ORDERED: Ondansetron HCl/PF 4 MG/2 ML Vial IVP PRN (15:35)
[2017-12-14] MEDS ORDERED: Sodium Chloride 0.9% 1,000 ML IV SCH (15:45)
--- NOTE | 2017-12-14 15:59 | HP ---
DATE OF ADMISSION: 12/14/2017 CHIEF COMPLAINT: Oliguria and brownish urine. HISTORY OF PRESENT ILLNESS: This is a 62-year-old male who was admitted to the hospital because of brown urine. The patient notes that it looks like kaylan blood at times and then goes to dark brown. Patient denies any nausea, vomiting , diarrhea, constipation, fevers, chills, or shortness of breath. The patient states that he has had these symptoms multiple times in the past and he was diagnosed with UTIs in the past. The patient admits to a significant history of vasculopathy due to smoking, diabetes and uncontrolled hypertension as well in the past. The patient states that he has not smoked recently at all. Does admit that he has had multiple stentings in the femoral artery as well as coronary arteries. The patient states that he otherwise has no other associated symptoms. No alleviating or aggravating factors. Denies any other complaints. The patient states that he follows up with Dr. Alvarez for Cardiology as well as Dr. Ronquillo for his PCP. The patient states that he has no other things added for his HPI. The patient is seen and examined. at bedside. All questions answered. ALLERGIES: SULFA DRUGS. HOME MEDICATIONS: See MAR. PAST MEDICAL HISTORY: Coronary artery disease, peripheral vascular disease with stenting, right lower extremity below knee amputation, congestive heart failure systolic and diastolic, EF of 45%-50%, diabetes mellitus type 2, hypertension, and obesity. FAMILY HISTORY: Positive for diabetes type 2 and hypertension. SOCIAL HISTORY: Ex-smoker, 50 plus pack years, quit a few more than 2 years ago. No drinking. REVIEW OF SYSTEMS: Twelve point review of systems performed. Pertinent positives in the HPI, otherwise negative. PHYSICAL EXAMINATION: VITAL SIGNS: Blood pressure 129/88, respiratory rate of 12, heart rate of 88, saturation is 95% on 2 liters nasal cannula, and temperature of 98. GENERAL: The patient is lying in bed in no acute distress. HEENT: Normocephalic, atraumatic. Pupils are equal, round, and react to light and accommodation. NECK: Supple, palpable nontender, mobile thyroid. LUNGS: Clear to auscultation bilaterally. Aerating well. No respiratory distress. CARDIOVASCULAR: Regular rate and rhythm, S1 and S2. Faint 2/6 systolic ejection murmur appreciated. ABDOMEN: Positive bowel sounds, soft, nontender, rotund abdomen. EXTREMITIES: 2+ peripheral pulses. Right lower extremity foot and below is significantly colder than right upper extremity or right upper thigh. Left lower extremity below knee amputation noted. NEUROLOGIC: Cranial nerves II-XII intact. Decreased sensation in right foot. LABORATORY DATA: CBC: WBC count elevated at 13.6, hemoglobin 9.9, MCV 91. BMP : Sodium 126, potassium 3.7, chloride 94, bicarbonate 21, creatinine of 3.4, alkaline phosphatase of 257, and albumin 2.5. UA; positive for protein, positive for glucose, large blood, leukocyte esterase noted as well. ASSESSMENT AND PLAN: 1. Urinary tract infection in a male with sepsis, secondary indicators include elevated white blood cell count as well as tachycardia. 2. Acute kidney injury on chronic kidney disease stage 4. 3. Hypertension. 4. Vasculopathy, coronary artery disease and peripheral vascular disease. 5. Diabetes mellitus type 2, uncontrolled. 6. Proteinuria. At this point in time, we will admit to Internal Medicine team and hospital admission. We will start patient on IV antibiotics. We will obtain urine culture and blood culture. We will consult Dr. Barth to follow up with Nephrology evaluation. Recent echo done in 08/2017 shows an EF of 40%-45%. Thus, we will not give the patient aggressive amounts of fluids. We will give about 75 mL an hour for a total of 1 liter bag. Laboratory data in a.m. We will continue p.o. diuretics for now. The patient has hyponatremia likely secondary to excess free water. We will attempt to remove free water through diuresis and provide normal saline to have net positive sodium and a net loss of free water. Gastrointestinal and deep venous thrombosis prophylaxis with Pepcid and heparin. Pain management. The patient is to remain a FULL CODE status. Case and plan discussed with patient and at length. They understand and agree with this plan. MIGUELITO
[2017-12-14 16:02] LABS: Hemoglobin A1c 10.9 % (4.0-6.0)
[2017-12-14 17:05] VITALS: BMI 29.2
[2017-12-14] MEDS: Acetaminophen 500 MG TAB PO PRN (17:55)
[2017-12-14] MEDS: Senokot S 8.6-50 MG TAB PO SCH (20:28)
[2017-12-14] MEDS: Famotidine 20 MG TAB PO SCH (20:28)
[2017-12-14] MEDS: Furosemide 80 MG TAB PO SCH (20:29)
[2017-12-14] MEDS: Carvedilol 6.25 MG TAB PO SCH (20:29)
[2017-12-14] MEDS: Atorvastatin Calcium 40 MG TAB PO SCH (20:29)
[2017-12-14] MEDS: Heparin 5,000 UNITS/ML VIAL SC SCH ×2 (20:30)
[2017-12-14] MEDS ORDERED: Insulin Detemir 100 UNITS/ML 15 UNITS in Pre-Filled Syringe 1 EACH SC SCH (21:00)
[2017-12-14] MEDS ORDERED: Calcium Carbonate 500 MG ChewTAB PO PRN ×2 (21:03)
--- NOTE | 2017-12-14 22:10 | CT ---
CT OF THE ABDOMEN AND PELVIS WITHOUT CONTRAST 12/14/17 COMPARISON: None. HISTORY: Acute kidney injury with upper abdominal pain that radiates to the back. TECHNIQUE: Multiple contiguous axial images were obtained in a CT of the abdomen and pelvis without contrast. Co gigi reformats were performed. FINDINGS: There is moderate to severe right hydronephrosis and hydroureter. No calcification is seen in either ureter or kidney. There is a 7 to 8 mm dependent calcification in the urinary bladder which appears s lightly removed from the ureterovesical junction and may represent a recently passed stone. No left s ided hydronephrosis is seen. Calcifications in the hilar region of the right kidney are likely vascul ar calcifications. There is hyperdensity along the gallbladder wall which may represent calcification of the gallbladder wall or a small amount of calcified gallstones in the dependent gallbladder. The liver, adrenal glands, spleen, and pancreas are unremarkable. No free air or free fluid are seen in the abdomen and pelvis. The large and small bowel are unremarka ble. No abdominal or pelvic lymphadenopathy are seen. There is severe atherosclerotic calcifications within the aorta. These calcifications are very central in the aorta, in the infrarenal aorta and aor tic occlusion or high grade stenosis of aorta is a possibility. Hardware seen in the right femur. The visualized inferior thorax shows mild bilateral pleural effusio ns with adjacent atelectasis. The abdominal wall soft tissues are unremarkable. IMPRESSION: 1. Moderate to severe right sided hydronephrosis. This may be secondary to recently passed stone . The stone appears removed from the ureterovesical junction but definite displacement from the urete rovesical junction could only be determined by prone CT scan showing the calcification to fall depend ently. 2. Hyperdensity along the gallbladder wall may represent gallstones or calcification of the gall bladder wall. 3. Bilateral pleural effusions with adjacent atelectasis. 4. Severe atherosclerotic disease in the inferior aorta which may or may not be occluded. POS: TAHMINA
[2017-12-15] MEDS: Acetaminophen 500 MG TAB PO PRN (02:36)
[2017-12-15 05:11] LABS: Anion Gap 15 mmol/L (10-20); BUN (Urea Nitrogen) 40 mg/dL (8.4-25.7); Calc. Creatinine Clearance 37 mL/min (70-130); Calcium 7.9 mg/dL (7.8-10.44); Carbon Dioxide 17 mmol/L (23-31); Chloride 99 mmol/L (98-107); Estimated GFR-MDRD 25; Glucose 179 mg/dL (80-115); Potassium 3.5 mmol/L (3.5-5.1); Sodium 127 mmol/L (136-145)
[2017-12-15 05:21] LABS: Band 12 % (5-11); Eosinophils 3 % (0-10); Hemoglobin 9.8 g/dL (14.0-18.0); Lymphocytes 4 % (21-51); MDiff Complete? YES; Mean Corpuscular HGB CONC 33.7 g/dL (32.0-36.0); Mean Corpuscular Hemoglobin 30.9 pg (27.0-31.0); Mean Corpuscular Volume 91.7 fl (80.0-94.0); Monocytes 7 % (0-10); Neutrophil 74 % (42-75); PLT Morphology Comment Appears Adequate; Platelet Count 300 thou/uL (130-400); RBC Distribution Width 13.3 % (11.5-14.5); RBC Morphology Normal; Red Blood Cell (RBC) Count 3.18 mill/uL (4.70-6.10)
[2017-12-15] MEDS: Lactinex Tablet PO SCH (10:02)
[2017-12-15] MEDS: Clopidogrel Bisulfate 75 MG TAB PO SCH (10:02)
[2017-12-15] MEDS: Docusate 100 MG CAP PO SCH (10:04)
[2017-12-15] MEDS: Aspirin 325 mg Enteric Coated Tablet PO SCH (10:04)
[2017-12-15] MEDS: Carvedilol 6.25 MG TAB PO SCH ×2 (10:04→20:32)
[2017-12-15] MEDS: Tamsulosin HCl 0.4 MG CAP PO SCH (10:05)
[2017-12-15] MEDS: Senokot S 8.6-50 MG TAB PO SCH ×2 (10:05→20:33)
[2017-12-15] MEDS: Heparin 5,000 UNITS/ML VIAL SC SCH ×4 (10:05→20:32)
[2017-12-15] MEDS: Insulin NPH/Reg Insulin Hm 300 UNITS/3 ML VIAL SC SCH ×2 (10:11→17:30)
[2017-12-15] MEDS: Furosemide 80 MG TAB PO SCH (10:12)
--- NOTE | 2017-12-15 10:35 | PRG ---
DATE OF SERVICE: 12/15/2017 SUBJECTIVE: This is a 62-year-old gentleman being seen for acute kidney injury. The patient had iam sea, vomiting, and chest pain. PHYSICAL EXAMINATION: GENERAL: The patient is awake and alert. VITAL SIGNS: Afebrile, pulse 65, breathing 16, blood pressure 160/71. HEAD/NECK: Normocephalic. Atraumatic. EYES: EOMI. No deformity. EARS: Clear. No ulcers. NOSE: Intact. No lesions. MOUTH: Clear. No discharge. THROAT: Clear. No exudate. LUNGS: Clear. No crackles. CARDIAC: S1, S2. No rub. ABDOMEN: Benign. BS+. GENITALIA/RECTUM: Vaughn absent. BACK/EXTREMITIES: Edema 0+ Ulcer- NEUROLOGICAL: Alert and motor intact. SKIN: Rash- Bruise- LYMPHATICS: Edema- Ulcer- LABORATORY DATA: Show hemoglobin 9.8, creatinine 2.5. ASSESSMENT AND PLAN: 1. Acute kidney injury with chronic kidney disease, stage 4 improved. 2. Hypertension, stable. 3. Anemia, stable. 4. Metabolic acidosis, stable. No indication for dialysis. 5. Hydronephrosis. We will consult Urology.
[2017-12-15] MEDS ORDERED: cefTRIAXone\\ROCEPHIN 1 GM in Sodium Chloride 0.9% 100 ML IVPB SCH (12:00)
--- NOTE | 2017-12-15 12:26 | CON ---
DATE OF CONSULTATION: 12/14/2017 REASON FOR CONSULTATION: Elevated creatinine. HISTORY OF PRESENT ILLNESS: This is a very pleasant 62-year-old gentleman who presented to the hospital after having difficulty urination and dark-colored urine, although the patient has had UTI in the past. The patient denies no headache, numbness, tingling, or weakness. The patient has had poor p.o. intake. The patient has had severe peripheral vascular disease and congestive heart failure. PAST MEDICAL HISTORY: Significant for congestive heart failure, EF 45%, diabetes mellitus, hypertension, obesity, history of peripheral vascular disease , coronary artery disease, history of diabetes mellitus. SOCIAL HISTORY: No alcohol or drug use. FAMILY HISTORY: Negative for ESRD. REVIEW OF SYSTEMS: A 15-point review of systems was performed and negative except positives noted above. GENERAL: Weakness. HEAD: Headache. NECK: No swelling or lumps. NOSE: No epistaxis or discharge. EYES: No diplopia or pain. RESPIRATORY: Dyspnea. CARDIOVASCULAR: Chest pain. GASTROINTESTINAL: Nausea. /PHARMACEUTICAL ANALYST: Hematuria. MUSCULOSKELETAL: No joint pain. NEUROPSYCHIATIC SYSTEMS: No suicidal ideation. No ideation. SKIN: Denies any rash or ulcer. CONSTITUTIONAL: No fever or chills. PHYSICAL EXAMINATION: GENERAL: Patient is awake, alert. VITAL SIGNS: Temperature 97, pulse 67, breathing 16, blood pressure 129/88. OBJECTIVE: See above. GENERAL APPEARANCE AND MENTAL STATUS: Fair. HEAD/NECK: Normocephalic. Atraumatic. EYES: EOMI. No deformity. EARS: Clear. No ulcers. NOSE: Intact. No lesions. MOUTH: Clear. No discharge. THROAT: Clear. No exudate. LUNGS: Clear. No crackles. CARDIAC: S1, S2. No rub. ABDOMEN: Benign. BS+. GENITALIA/RECTUM: Vaughn absent. BACK/EXTREMITIES: Edema 0+. Ulcer. NEUROLOGICAL: Alert and motor intact. SKIN: Rash. Bruise. LYMPHATICS: Edema. Ulcer. LABORATORY DATA: Show hemoglobin 9.9, potassium 3.7, creatinine 3.4. ASSESSMENT AND RECOMMENDATIONS: 1. Acute kidney disease, CKD, most likely due to decrease eefctive arterial blood volume. Continue hydration. No indication for dialysis. 2. Hypertension, stable. 3. Anemia, stable. 4. Proteinuria and complicated urinary tract infection. [facility]
[2017-12-15] MEDS: cefTRIAXone\\ROCEPHIN 1 GM, Syringe 0.4 ML in Sterile Water 9.6 ML SLOW IVP SCH (12:33)
--- NOTE | 2017-12-15 14:27 | PDOC.PN ---
- Subjective Encounter Start Date: 12/15/17 Encounter Start Time: 14:25 Patient seen and examined, currently post op from urological procedure, all questions answered. - Objective Vital Signs & Weight: Vital Signs (12 hours) Temp Pulse Resp BP Pulse Ox 12/15/17 11:49 98.5 F 78 16 95 12/15/17 11:36 98.5 F 79 16 162/77 H 96 Result Diagrams: 12/15/17 04:04 12/15/17 04:04 Additional Labs: Accuchecks 12/15/17 11:36 POC Glucose 179 H Phys Exam - Physical Examination Constitutional: NAD HEENT: PERRLA, moist MMs, sclera anicteric Neck: no nodes, no JVD, supple Respiratory: no wheezing, no rales Cardiovascular: RRR, no significant murmur, no rub Gastrointestinal: soft, no distention, positive bowel sounds Musculoskeletal: pulses present, edema present (trace) Psychiatric: normal affect, A&O x 3 Dx/Plan (1) Nephrolithiasis Status: Acute (2) Hydronephrosis Code(s): N13.30 - UNSPECIFIED HYDRONEPHROSIS Status: Acute (3) NISH (acute kidney injury) Code(s): N17.9 - ACUTE KIDNEY FAILURE, UNSPECIFIED Status: Acute (4) Amputated below knee Status: Acute (5) Cardiomyopathy Code(s): I42.9 - CARDIOMYOPATHY, UNSPECIFIED Status: Chronic Comment: Non- ischemic with ischemic (6) Diabetes mellitus Code(s): E11.9 - TYPE 2 DIABETES MELLITUS WITHOUT COMPLICATIONS Status: Chronic Qualifiers: Diabetes mellitus type: type 2 Diabetes mellitus complication status: with kidney complications Diabetes mellitus complication detail: with chronic kidney disease Chronic kidney disease stage: stage 3 (moderate) Qualified Code(s): E11.22 - Type 2 diabetes mellitus with diabetic chronic kidney disease (7) Hypertension Code(s): I10 - ESSENTIAL (PRIMARY) HYPERTENSION Status: Chronic (8) PVD (peripheral vascular disease) with claudication Code(s): I73.9 - PERIPHERAL VASCULAR DISEASE, UNSPECIFIED Status: Chronic - Plan * Patient returned from urological procedure, hydronephrosis likely stone present * continue current plan of care * pain control * renal and urology following * further management per subspecialists * labs in AM * case and plan d/w patient at length, he understands and agrees with this plan
--- NOTE | 2017-12-15 14:59 | CT ---
CT ABDOMEN AND PELVIS: 12/15/2017 HISTORY: Evaluate hydronephrosis and evaluation for a bladder stone. COMPARISON: 12/14/2017 TECHNIQUE: Serial axial CT imaging at 5 mm intervals obtained from the lung bases through the pubic symphysis, w ithout contrast. Coronal reformatted imaging obtained. The patient was imaged in the prone position . FINDINGS: Lack of contrast media limits assessment of the viscera, bowel, vascular structures, and for lymphade nopathy. There is a small right pleural effusion layering anteriorly secondary to prone imaging. There is sma ll volume pericardial fluid, stable. Coronary arterial calcifications are seen. Imaged lung bases a re otherwise grossly unremarkable. No free intraperitoneal air is seen. The liver and spleen are grossly unremarkable. Cholelithiasis is noted. There is mild distal esopha geal wall thickening versus under-distention. The adrenal glands are unremarkable. There is no evidence for obstructive uropathy or nephrolithiasis on the left. There is prominent, but slightly improving, right-sided hydronephrosis and prominent right-sided hydr oureter with transition to decompressed distal ureter within the pelvis, at the axial level of the khan perior margin of the right sacroiliac joint, at which level the ureter passes between the urinary fortino dder and the right external iliac artery. The urinary bladder is distended. The previously noted ca lcification within the posterior aspect of the urinary bladder on the 12/14/2017 study falls to the a nterior aspect of the urinary bladder on prone imaging, confirming that this 8-9 mm calcification is within the urinary bladder. There is severe atherosclerotic calcification throughout the abdominal aorta and its branches, nearly completely obscuring the arterial lumen within the infrarenal abdominal aorta. The arterial structu res of the pelvis are not optimally assessed without contrast media and are heavily calcified. There is right-sided postoperative hardware within the proximal femur/femoral neck. No worrisome lytic or blastic bone lesion is noted. There is a mild anterior wedge compression deformity of the L2 vertebral body, stable. There is an ectopic lateral location of the left ureterovesical junction. IMPRESSION: 1. Prone imaging demonstrates the 8-9 mm calcification seen on the prior examination to be within th e urinary bladder. 2. Small right pleural effusion and pericardial effusion. 3. Prominent persistent, but improving, right-sided hydronephrosis and hydroureter, with transition to a decompressed ureter at the level of the pelvic inlet. The cause of this transition is uncertain on this exam. This likely represents residual dilation associated with recent stone disease. The u reter passes between the heavily calcified right external iliac artery and the distended urinary blad maria del carmen in this region. Underlying ureteral stricture or urothelial mass cannot be fully excluded. Donell mmend follow up US to document resolution of hydronephrosis. If this persists, follow-up CT urogram or retrograde pyelogram on the right would be beneficial. 4. Ectopic insertion of left ureter with no evidence for left-sided obstructive uropathy. 5. Severe atherosclerotic disease. 6. Cholelithiasis. CODE T POS: JULIO CESAR
[2017-12-15] MEDS ORDERED: Carvedilol 3.125 MG TAB PO SCH (17:00)
[2017-12-15] MEDS: Famotidine 20 MG TAB PO SCH (20:31)
[2017-12-15] MEDS: Atorvastatin Calcium 40 MG TAB PO SCH (20:32)
[2017-12-15] MEDS: traMADol HCl 50 MG TAB PO PRN (21:23)
[2017-12-16 05:34] LABS: #Eosinphils 0.3 thou/uL (0.0-0.7); #Lymphocytes 0.9 thou/uL (1.20-3.40); #Monocytes 0.9 thou/uL (0.11-0.59); #Neutrophils 8.4 thou/uL (1.40-6.50); %Eosinophils 2.6 % (0.0-10.0); %Lymphocytes 8.6 % (21.0-51.0); %Monocytes 8.8 % (0.0-10.0); Mean Corpuscular HGB CONC 33.9 g/dL (32.0-36.0); Mean Corpuscular Hemoglobin 30.2 pg (27.0-31.0); Mean Platelet Volume 7.2 fL (7.4-10.4); Platelet Count 337 thou/uL (130-400); RBC Distribution Width 13.3 % (11.5-14.5); White Blood Cell (WBC) Count 10.5 thou/uL (4.8-10.8)
[2017-12-16 05:55] LABS: Anion Gap 12 mmol/L (10-20); BUN (Urea Nitrogen) 25 mg/dL (8.4-25.7); Calc. Creatinine Clearance 53 mL/min (70-130); Calcium 8.2 mg/dL (7.8-10.44); Carbon Dioxide 24 mmol/L (23-31); Chloride 101 mmol/L (98-107); Estimated GFR-MDRD 39; Glucose 104 mg/dL (80-115); Sodium 134 mmol/L (136-145)
[2017-12-16] MEDS: Heparin 5,000 UNITS/ML VIAL SC SCH ×4 (09:03→20:35)
--- NOTE | 2017-12-16 10:01 | PRG ---
DATE OF SERVICE: 12/16/2017 SUBJECTIVE: A 62-year-old gentleman being seen for acute kidney injury, improving creatinine. The p atient denies any nausea, vomiting or chest pain. PHYSICAL EXAMINATION: GENERAL: Patient is awake, alert. VITAL SIGNS: Afebrile, pulse 75, breathing 16, blood pressure 150/71. OBJECTIVE: See above. Awake, alert, in no acute distress. GENERAL APPEARANCE AND MENTAL STATUS: Fair. HEAD/NECK: Normocephalic. Atraumatic. EYES: EOMI. No deformity. EARS: Clear. No ulcers. NOSE: Intact. No lesions. MOUTH: Clear. No discharge. THROAT: Clear. No exudate. LUNGS: Clear. No crackles. CARDIAC: S1, S2. No rub. ABDOMEN: Benign. BS+. GENITALIA/RECTUM: Vaughn absent. BACK/EXTREMITIES: Edema 0+ Ulcer- NEUROLOGICAL: Alert and motor intact. SKIN: Rash- Bruise- LYMPHATICS: Edema- Ulcer- LABORATORY: Hemoglobin 10, potassium 3, creatinine 1.7. RECOMMENDATIONS: 1. Acute kidney injury, improved. 2. Hypertension, stable. 3. Anemia, stable. 4. The patient has chronic kidney disease stage 3 at baseline and is approaching that. 5. Hypokalemia. Recommend 40 mEq potassium. 6. Hydronephrosis. Management per Urology.
--- NOTE | 2017-12-16 10:38 | CON ---
DATE OF CONSULTATION: 12/15/2017 HISTORY OF PRESENT ILLNESS: This is a 62-year-old white male that I was asked to see today by the spitalist service, because of hematuria and the finding on a recent CAT scan of right hydronephrosis. He was admitted, I think because of the hematuria at least when I talked with him, he says that the reason he came to the emergency room was because he had a brown to marcelino-color urine. He said he mazariegos s had it for about a week. He has not complained of any dysuria or frequency, although his initial E R visit said that he came in with abdominal pain. He says he really has not been hurting much partic ularly no flank pain. He has had some nausea and has not eaten much this week, has not had much to d rink this week. He has not felt great, but no fevers, no chills, no burning. Generally urinate is o leighton, get pees probably a couple of times at night. He just uses a handheld urinal at the bedside. S tream is diminished sound, but he says that seems like he empties adequately. He has had probably so me urinary tract infections in the last few months. He said that he believes that he has had some in fections have looked through cultures of his urine. He had culture done in 10/15, 09/24, and 05/03/ 017, there was no growth on any of those cultures. He had a urine culture in 2013, no growth, so I c annot see your document any urine cultures at least done through [facility]. He has a mildly elevate d white count of 12 that was 13.6 when he came in. He has a little bit of a shift. He has a creatin ine that talked with his battery stacker normally runs a bit over one, but it went up to 3.1 before he c betty in, it was 2.5 today, so it was improved and this felt that he certainly has some evidence for so me prerenal azotemia. Noncontrast CAT scan was done that showed some interesting findings, it showed right hydronephrosis and I can look back to a CAT scan in 2013. He had no hydronephrosis at that ti me. I cannot find, he has had a CAT scan since then, although he does describe some type of interven tional vascular procedure for his right lower extremity, and I would have thought he may have had a C AT scan done at that time, but I cannot find one here at [facility]. But in any event, this hyd ro appears new, again, he is not having any significant right flank pain. He does have a stone sitti ng what is probably on the floor of the bladder. The thought was perhaps maybe had a ureteral stone that he passed into the bladder and that was not 100% clear and this could not have been a distal or intramural ureteral stone, so a prone CT was done, which did show that the stone fell to the top of t he bladder to the anterior wall of the bladder when he moved to the prone position. It was clearly, he has bladder stone and whether or not it was recently passed ureteral stone or bladder stone that cleo miles has had for a while, nobody can tell. In any event, the repeat CAT scan done prone still showed so me right hydro, although talking with the radiologist and looking at myself, it does not appear to be as prominent as it was yesterday when he came in, and again his creatinine is somewhat improving. PAST MEDICAL HISTORY: His medical history does have significant vascular disease, he has had a lower extremity amputation. He has had some revascularization procedures done for his lower extremities. Think, the latest by Dr. Smart, he has had heart stents placed for vascular problems also. He does also have diabetes and to his knowledge, however, he does not have any history of any cancers of the urinary tract, bladder cancer, kidney cancer, prostate cancer. He has had a right lower extremity be low-knee amputation. He has had history of some congestive heart failure. He has had a history of h ypertension. ALLERGIES: He has allergies to SULFA. SOCIAL HISTORY: He is ex-cigarette smoker, quit a few years ago, but does have heavy history of ciga rette smoking in the past. In exam, he has no right or left costovertebral angle tenderness. His bladder is mildly distended, b ut without rebound or without guarding. LABORATORY AND X-RAY FINDINGS: Blood work has been mentioned urinalysis when he came in, his urinaly sis showed large blood, large leukocyte esterase and 7-10 red cells, greater than 50 white cells, no bacteria were seen. Culture I am assuming has been set up, he just came back as preliminary and is s howing at this point some mixed-skin ovi. His vital signs, he has been afebrile, pulse in the mid 70s, good blood pressure, good O2 saturation on room air. IMPRESSION: 1. Right hydro. 2. Hematuria. 3. Bladder stone. 4. History of tobacco abuse. 5. Multiple other medical problems. PLAN: At this time, I think will be to watch him and made him n.p.o. after midnight to kind of reeva luate things tomorrow, I am assuming, he will get some blood work done. We will see what his creatin ine does in terms of response to fluids and a fluid challenge, will see what his culture shows on fin al. Certainly, possible that this stone was originally passed ureteral stone, although it is also po ssible it is a bladder stone that has been sitting there for quite a while and has nothing to do with the hydro, so we would leave us with the patient with hydro, it was otherwise unexplained and hematu devon, so there is a number of different things that could cause that. So a cysto for sure will be mika girard at some point. It would be nice to get this culture back and be sure that we are not dealing wit h an infection before we him. I will follow along with you and keep him n.p.o. after midnight just on the outside chance of something being done tomorrow.
[2017-12-16] MEDS: Carvedilol 6.25 MG TAB PO SCH ×2 (11:04→20:34)
[2017-12-16] MEDS: Docusate 100 MG CAP PO SCH (11:04)
[2017-12-16] MEDS: Tamsulosin HCl 0.4 MG CAP PO SCH (11:05)
[2017-12-16] MEDS: Aspirin 325 mg Enteric Coated Tablet PO SCH (11:05)
[2017-12-16] MEDS: Clopidogrel Bisulfate 75 MG TAB PO SCH (11:06)
[2017-12-16] MEDS: Lactinex Tablet PO SCH (11:06)
[2017-12-16] MEDS: Senokot S 8.6-50 MG TAB PO SCH ×2 (11:07→20:35)
[2017-12-16] MEDS: Insulin NPH/Reg Insulin Hm 300 UNITS/3 ML VIAL SC SCH ×2 (11:08→16:32)
[2017-12-16] MEDS ORDERED: Potassium Chloride 20 MEQ TAB PO SCH ×2 (12:30)
[2017-12-16] MEDS: cefTRIAXone\\ROCEPHIN 1 GM, Syringe 0.4 ML in Sterile Water 9.6 ML SLOW IVP SCH (13:00)
--- NOTE | 2017-12-16 13:00 | PDOC.PN ---
- Subjective Encounter Start Date: 12/16/17 Encounter Start Time: 12:58 Patient seen and examined, no new issues or complaints, at bedside, all questions answered. - Objective Vital Signs & Weight: Vital Signs (12 hours) Temp Pulse Resp BP BP Pulse Ox 12/16/17 11:04 147/55 H 12/16/17 08:00 98 F 73 12 147/55 H 93 L I&O: 12/15/17 12/16/17 12/17/17 06:59 06:59 06:59 Intake Total 805 Output Total 2080 Balance -1275 Result Diagrams: 12/16/17 05:14 12/16/17 05:14 Additional Labs: Accuchecks 12/16/17 12/16/17 12/15/17 11:26 04:37 19:42 POC Glucose 226 H 95 119 H 12/15/17 16:44 POC Glucose 125 H Phys Exam - Physical Examination Constitutional: NAD obese HEENT: PERRLA, moist MMs, sclera anicteric Neck: no nodes, no JVD, supple Respiratory: no wheezing, no rales, no rhonchi Cardiovascular: RRR, no significant murmur, no rub Gastrointestinal: soft, non-tender, no distention Musculoskeletal: pulses present, edema present (trace) LLE BKA Neurological: non-focal, normal sensation Dx/Plan (1) Nephrolithiasis Status: Acute (2) Hydronephrosis Code(s): N13.30 - UNSPECIFIED HYDRONEPHROSIS Status: Acute (3) NISH (acute kidney injury) Code(s): N17.9 - ACUTE KIDNEY FAILURE, UNSPECIFIED Status: Acute (4) Amputated below knee Status: Acute (5) Cardiomyopathy Code(s): I42.9 - CARDIOMYOPATHY, UNSPECIFIED Status: Chronic Comment: Non- ischemic with ischemic (6) Diabetes mellitus Code(s): E11.9 - TYPE 2 DIABETES MELLITUS WITHOUT COMPLICATIONS Status: Chronic Qualifiers: Diabetes mellitus type: type 2 Diabetes mellitus complication status: with kidney complications Diabetes mellitus complication detail: with chronic kidney disease Chronic kidney disease stage: stage 3 (moderate) Qualified Code(s): E11.22 - Type 2 diabetes mellitus with diabetic chronic kidney disease (7) Hypertension Code(s): I10 - ESSENTIAL (PRIMARY) HYPERTENSION Status: Chronic (8) PVD (peripheral vascular disease) with claudication Code(s): I73.9 - PERIPHERAL VASCULAR DISEASE, UNSPECIFIED Status: Chronic - Plan * pending urine cultures * if urine cultures negative in AM will DC w/ keflex x 7 days, if positive will await C&S and tailor therapy accordingly, patient has had multiple UTIs in the past thus may require PICC if pathogen is MDR * renal and urology also following * continue current plan of care for now * case and plan d/w patient at length, he understands and agrees with this plan
--- NOTE | 2017-12-16 13:08 | PQF ---
CLINICAL DOCUMENTATION IMPROVEMENT CLARIFICATION FORM: ICD-10 Updated PLEASE DO AN ADDENDUM TO THE PROGRESS NOTE WITH ANY DOCUMENTATION UPDATES OR ADDITIONS AND CARRY THROUGH TO DC SUMMARY. THANK YOU. DATE: 12/16 ATTN: DR. LARISSA BOONE Please exercise your independent, professional judgment in responding to the clarification form. Clinical indicators are provided on the bottom of this form for your review. Please check appropriate box(s) to clarify if the following diagnosis has been ruled in or ruled out: SEPSIS [ x ] Ruled in diagnosis [ x ] Continue to treat [ ] Resolved [ ] Ruled out diagnosis [ ] Other diagnosis [ ] Unable to determine For continuity of documentation, please document condition throughout progress notes and discharge summary. Thank You. CLINICAL INDICATORS - SIGNS / SYMPTOMS / LABS ER PRESENTATION 12/14: WBC: T: 99.0 RI: 99 ER PHYSICIAN DOCUMENTATION 12/14: UTI, SIRS ATTENDING H&P DOCUMENTATION 12/14: ASSESSMENT & PLAN: 1) UTI IN A MALE W/SEPSIS , SECONDARY INDICATORS INCLUDED ELEVATED WBC WELL TACHYCARDIA NO FURTHER MENTION OF SEPSIS RISK FACTORS: UTI NISH ELEVATED WBC TREATMENTS: IV ANTIBIOTIC (ROCEPHIN 12/14 - PRESENT) IVF (NS 12/14) UROLOGY CONSULT THANK YOU! Serena (This form is maintained as a part of the permanent medical record) 2014 [employer] All Rights Reserved Serena Salvador RN, BSN [email or web address] Office: [phone] MIGUELITO
[2017-12-16] MEDS: traMADol HCl 50 MG TAB PO PRN (20:33)
[2017-12-16] MEDS: Atorvastatin Calcium 40 MG TAB PO SCH (20:34)
[2017-12-16] MEDS: Famotidine 20 MG TAB PO SCH (20:35)
[2017-12-17 05:20] LABS: #Eosinphils 0.4 thou/uL (0.0-0.7); #Lymphocytes 1.4 thou/uL (1.20-3.40); %Basophils 0.1 % (0.0-1.0); %Eosinophils 3.7 % (0.0-10.0); %Lymphocytes 12.7 % (21.0-51.0); %Neutrophils 74.6 % (42.0-75.0); Hemoglobin 9.8 g/dL (14.0-18.0); Mean Corpuscular HGB CONC 33.6 g/dL (32.0-36.0); Mean Corpuscular Volume 89.1 fl (80.0-94.0); Mean Platelet Volume 7.1 fL (7.4-10.4); Platelet Count 393 thou/uL (130-400); RBC Distribution Width 13.4 % (11.5-14.5); Red Blood Cell (RBC) Count 3.25 mill/uL (4.70-6.10); White Blood Cell (WBC) Count 10.7 thou/uL (4.8-10.8)
[2017-12-17 05:43] LABS: Anion Gap 12 mmol/L (10-20); BUN (Urea Nitrogen) 21 mg/dL (8.4-25.7); Calc. Creatinine Clearance 61 mL/min (70-130); Calcium 7.8 mg/dL (7.8-10.44); Carbon Dioxide 23 mmol/L (23-31); Chloride 102 mmol/L (98-107); Estimated GFR-MDRD 45; Glucose 105 mg/dL (80-115); Sodium 134 mmol/L (136-145)
[2017-12-17] MEDS: Carvedilol 6.25 MG TAB PO SCH (08:47)
[2017-12-17] MEDS: Tamsulosin HCl 0.4 MG CAP PO SCH (08:47)
[2017-12-17] MEDS: Aspirin 325 mg Enteric Coated Tablet PO SCH (08:47)
[2017-12-17] MEDS: Lactinex Tablet PO SCH (08:47)
[2017-12-17] MEDS: Senokot S 8.6-50 MG TAB PO SCH (08:47)
[2017-12-17] MEDS: Clopidogrel Bisulfate 75 MG TAB PO SCH (08:47)
[2017-12-17] MEDS: Insulin NPH/Reg Insulin Hm 300 UNITS/3 ML VIAL SC SCH (08:48)
[2017-12-17] MEDS: Docusate 100 MG CAP PO SCH (08:49)
[2017-12-17] MEDS: Heparin 5,000 UNITS/ML VIAL SC SCH ×2 (08:51)
[2017-12-17 10:57] VITALS: TEMP 97.8
[2017-12-17 10:58] VITALS: BP 158/70
[2017-12-17] MEDS: cefTRIAXone\\ROCEPHIN 1 GM, Syringe 0.4 ML in Sterile Water 9.6 ML SLOW IVP SCH (13:44)
--- NOTE | 2017-12-17 14:10 | DIS ---
DATE OF ADMISSION: 12/15/2017 DATE OF DISCHARGE: 12/17/2017 ADMITTING DIAGNOSES: Abdominal pain and fevers as well as coronary artery disease, peripheral vascul ar disease, diabetes mellitus type 2, hypertension, obesity, and systolic congestive heart failure. DISCHARGE DIAGNOSES: Hydronephrosis, urinary tract infection stable as well as abdominal pain, resol leslie. Coronary artery disease, stable. Peripheral vascular disease, stable. Diabetes mellitus type 2, stable. Hypertension, stable. Obesity, stable. Congestive heart failure, systolic, stable. HOSPITAL COURSE: This is a 62-year-old male admitted to the hospital with brownish urine and UTI. T he patient was found to have hydronephrosis on CT scan imaging studies. Patient was admitted to [facility] Medicine team and started on antibiotics, was also seen by Urology and Nephrology. The patient had a cystoscopy procedure done with no surgical intervention. Patient was to follow up in 2 weeks o utpatient for laser removal of the stone, which was stuck in his urinary bladder and not anywhere in the ureters. Patient did have resolution of his symptoms upon time of discharge and was to get antib iotics for about 5 days, ciprofloxacin per recommendation of Nephrology and follow up with his PCP an d urologist within 7-10 days for repeat culture and further evaluation for the stone removal from his bladder. DISPOSITION: Home. Follow up with PCP, Nephrology, and Urology in 7-10 days. MEDICATIONS: See MAR. ACTIVITY: As tolerated. DIET: Low fat, low calorie, high fiber diet. CONDITION: Stable. PROGNOSIS: Good. Case and plan discussed with the patient and family at length. They understand and agree with this p chelsy.
--- NOTE | 2017-12-17 14:15 | PRG ---
DATE OF SERVICE: 12/17/2017 SUBJECTIVE: This is a 62-year-old gentleman seen for acute kidney. The patient denies any nausea, v omiting, or chest pain. PHYSICAL EXAMINATION: GENERAL: Patient is awake, alert. VITAL SIGNS: Pulse 74, breathing 16, blood pressure is 129/64. GENERAL APPEARANCE AND MENTAL STATUS: Fair. HEAD/NECK: Normocephalic. Atraumatic. EYES: EOMI. No deformity. EARS: Clear. No ulcers. NOSE: Intact. No lesions. MOUTH: Clear. No discharge. THROAT: Clear. No exudate. LUNGS: Clear. No crackles. CARDIAC: S1, S2. No rub. ABDOMEN: Benign. BS+. GENITALIA/RECTUM: Vaughn absent. BACK/EXTREMITIES: Edema 0+ Ulcer- NEUROLOGICAL: Alert and motor intact. SKIN: Rash- Bruise- LYMPHATICS: Edema- Ulcer- LABORATORY DATA: Hemoglobin 9.8, creatinine 0.45. ASSESSMENT AND PLAN: 1. Acute kidney injury, improved. 2. Hypertension, stable. 3. Anemia, stable. 4. Hypokalemia. Recommend high potassium diet. The patient should follow up to see me in 1 week.
--- NOTE | 2017-12-23 15:02 | EKG ---
Test Reason : Blood Pressure : / mmHG Vent. Rate : 071 BPM Atrial Rate : 071 BPM P-R Int : 162 ms QRS Dur : 086 ms QT Int : 434 ms P-R-T Axes : 045 019 074 degrees QTc Int : 471 ms Normal sinus rhythm Possible Left atrial enlargement Borderline ECG Confirmed by IGOR RONQUILLO ([id number]), restaurant expeditor [address] ([id number]) on 12/23/2017 3:00:22 PM Referred By: Confirmed By:IGOR RONQUILLO
== END 2017-12-17 14:20 | disposition home health service (06) | DRG 872 ==
LOC: ERS 11:37 → T4-B 15:56 → OBSVTOIN 12-15 10:57
PROVIDERS: ADMIT Internal Medicine; ATTEND Internal Medicine
DX: A41.9 Sepsis, unspecified organism (principal); E11.22 Type 2 diabetes mellitus with diabetic chronic kidney disease; N18.4 Chronic kidney disease, stage 4 (severe); I42.9 Cardiomyopathy, unspecified; N17.9 Acute kidney failure, unspecified; E87.2 Acidosis; E87.1 Hypo-osmolality and hyponatremia; I13.0 Hypertensive heart and chronic kidney disease with heart failure and stage 1 through stage 4 chronic kidney disease, or unspecified chronic kidney disease; I50.42 Chronic combined systolic (congestive) and diastolic (congestive) heart failure; N39.0 Urinary tract infection, site not specified; N13.6 Pyonephrosis; I25.10 Atherosclerotic heart disease of native coronary artery without angina pectoris; Z87.891 Personal history of nicotine dependence; I73.9 Peripheral vascular disease, unspecified; Z89.511 Acquired absence of right leg below knee; E66.9 Obesity, unspecified; Z68.29 Body mass index [BMI] 29.0-29.9, adult; E87.6 Hypokalemia; N21.0 Calculus in bladder
CPT/HCPCS: 36415; 36416; 74176; 80048; 80053; 81003; 81015; 83036; 85025; 87086; 93005; 96361; 96374; A4216; J0696; J1644; J1815; J2405; J7050

== ENCOUNTER 2017-12-27 08:38 | Inpatient (IN) | payer MEDICARE ==
[2017-12-27] MEDS ORDERED: CEFAZOLIN/Water 2 GM/20 ML SYRINGE ONE (09:18)
[2017-12-27] MEDS ORDERED: Fentanyl 100 MCG/2 ML VIAL ONE (09:43)
[2017-12-27] MEDS ORDERED: Midazolam HCl 2 mg/2 ml Vial ONE (09:44)
[2017-12-27] MEDS ORDERED: Iothalamate Meglumine 60% 50 ML VIAL FS ONE (09:55)
--- NOTE | 2017-12-27 12:12 | OP ---
DATE OF PROCEDURE: 12/27/2017 PREOPERATIVE DIAGNOSES: Right hydro and bladder stone. POSTOPERATIVE DIAGNOSES: Right hydro and bladder stone, plus pyuria. PROCEDURE PERFORMED: Cystoscopy, laser lithotripsy. A right retrograde pyelogram, and right stent p lacement. SURGEON: Dr. Tyron Katz ANESTHETIC: General. ESTIMATED BLOOD LOSS: Minimal. FINDINGS: There was found to be about a centimeter x 1.2 cm bladder stone, it was fragmented and rem brad and elliked out. He had pyuria that was not really sure that this is actually infection as much as just abnormal appearing urine. We irrigated this out and got him clear. He had right hydro. Th e proximal two-thirds hydronephrotic distal 1/3 normal. I did not see an obvious stone. There was s ome pyuria in the urine above the point of narrowing of the ureter. DRAINS PLACED: A 6 x 24 Polaris double-J stent without a string attached. OPERATIVE TECHNIQUE: After obtaining written and verbal consent from the patient and after receiving IV antibiotics, he was taken to the operating suite. He was placed in supine position on treatment table. PlexiPulses placed on the right lower extremity, his left lower extremity is absent below the knee. He was given a general anesthetic, oral obturator intubation. He was placed in the dorsal li thotomy position. He was sterilely prepped and draped. Cystoscopy was performed with a 22 German eath. He had mild meatal stenosis and required general dilatation with Kathy sounds up to 24 Pravin nch before going with a 22 German sheath. Bladder had a lot of debris and was cloudy. We drained it and drained it a number of times, inspecting it with both a 30 and the 70 degree lens. He had areas of abnormal mucosa, not looking at all like bladder tumor, but just necrotic tissue sitting and adhe rent to the wall of the bladder. We pulled this off in some areas, it did not appear that there was any tumor underneath this or anything significantly abnormal apart from probably just poor vascularit y of the bladder wall in these areas. The Holmium laser fiber was brought in and we lasered the ston e under direct vision and then elliked out the pieces, 1 piece was grasped with a pair of flexible gr asping forceps and removed. We then went ahead and flushed the Pollack catheter with contrast, did a stoker installer KUB, placed an open-ended catheter into the right ureteral orifice injecting about 20 mL showi ng a normal appearing distal third and a dilated proximal 2/3, no obvious filling defect. The wire w as fed easily by this point, a Pollack catheter was advanced up in this region. The wire was removed and we drained about probably 20 mL of cloudy urine. There was no odor to it. We then replaced the guidewire and placed our stent over the guidewire, pushing it up into place with aid of a pusher. A t this point, there was good hemostasis, the bladder apart from the necrotic areas looked normal. Th e instruments were removed. Vaughn catheter was not placed. The patient at this point was awakened a nd extubated and taken by stretcher to the recovery room.
--- NOTE | 2017-12-27 13:00 | RAD ---
RETROGRADE IVP: COMPARISON: None. HISTORY: Bilateral renal stones. FINDINGS/IMPRESSION: Multiple limited intraoperative fluoroscopic views were submitted for interpretation. There is a liz cification in the left aspect of the pelvis which may be a phlebolith. The right ureter is cannulate d and contrast is seen in the right ureter. There is moderate right hydronephrosis with blunting of the calyces. No obvious calcification is seen projecting over the right renal collecting system. Ev entually, a double-J stent is placed in the right renal collecting system which appears in good posit ion. POS: [facility]
[2017-12-27 14:59] LABS: #Basophils 0.1 thou/uL (0.0-0.2); #Eosinphils 0.2 thou/uL (0.0-0.7); #Lymphocytes 2.5 thou/uL (1.20-3.40); #Monocytes 0.6 thou/uL (0.11-0.59); #Neutrophils 7.7 thou/uL (1.40-6.50); %Basophils 0.8 % (0.0-1.0); %Eosinophils 1.8 % (0.0-10.0); %Lymphocytes 22.7 % (21.0-51.0); %Monocytes 5.7 % (0.0-10.0); Hemoglobin 10.3 g/dL (14.0-18.0); Mean Corpuscular HGB CONC 33.9 g/dL (32.0-36.0); Mean Corpuscular Hemoglobin 30.2 pg (27.0-31.0); Mean Corpuscular Volume 89.1 fl (80.0-94.0); Mean Platelet Volume 6.3 fL (7.4-10.4); Platelet Count 479 thou/uL (130-400); RBC Distribution Width 13.2 % (11.5-14.5); Red Blood Cell (RBC) Count 3.41 mill/uL (4.70-6.10); White Blood Cell (WBC) Count 11.1 thou/uL (4.8-10.8)
[2017-12-27 15:18] LABS: Anion Gap 7 mmol/L (10-20); BUN (Urea Nitrogen) 12 mg/dL (8.4-25.7); Calc. Creatinine Clearance 78 mL/min (70-130); Calcium 8.3 mg/dL (7.8-10.44); Carbon Dioxide 28 mmol/L (23-31); Chloride 99 mmol/L (98-107); Estimated GFR-MDRD 52; Glucose 241 mg/dL (80-115); Potassium 3.1 mmol/L (3.5-5.1); Sodium 131 mmol/L (136-145)
[2017-12-27] MEDS ORDERED: Lidocaine 1% PF 5 ML VIAL ONE (16:54)
[2017-12-27] MEDS ORDERED: PROPOFOL 200 MG/20 ML VIAL ONE (16:54)
[2017-12-27] MEDS ORDERED: PHENYLEPHRINE-NS 100 MCG/ML 10 ML SYRINGE ONE (16:54)
[2017-12-27] MEDS ORDERED: ePHEDrine/0.9% NaCl/PF SYRINGE 50 mg/10 ml ONE (16:54)
[2017-12-27] MEDS ORDERED: Prevnar 13-Val Conj/PF 0.5 ML SYRINGE IM ONE (18:45)
[2017-12-27] MEDS ORDERED: Dextrose 50% Abboject 50 ML SYRINGE SLOW IVP PRN (19:22)
[2017-12-27] MEDS ORDERED: Dextrose 5% in Water 1,000 ML IV PRN (19:22)
[2017-12-27] MEDS ORDERED: Promethazine 25 MG TAB PO PRN ×2 (19:23)
[2017-12-27] MEDS ORDERED: ALPRAZolam 0.5 MG TAB PO PRN (19:23)
[2017-12-27 19:52] VITALS: BMI 66.1
--- NOTE | 2017-12-27 20:24 | CON ---
DATE OF CONSULTATION: 12/27/2017 INTERNAL MEDICINE CONSULTATION REQUESTING PHYSICIAN: Tyron Katz MD CONSULTED SERVICE: Hospitalist Service. CHIEF COMPLAINT: Being admitted for lithotripsy. HISTORY OF PRESENT ILLNESS: This is a 62-year-old male who was admitted recently to the hospital and discharged, found to have nephrolithiasis as well as hydronephrosis incidentally on evaluation and w as discharged with antibiotics, and now is being re-admitted for lithotripsy. The patient is current ly status post urological intervention and consult has been placed for medical management. The patie nt admits to a past medical history of diabetes; hypertension; hyperlipidemia; coronary artery diseas e with 2 stents; acute kidney injury on chronic kidney disease, stable at stage 3B; also admits to le ft lower extremity BKA secondary to severe significant worsening diabetes and peripheral vascular dis ease. The patient also has a history of anxiety as well as congestive heart failure. The patient cu rrently is status post urological intervention. Denies any current symptoms or complaints. Has no n ausea, vomiting, diarrhea, constipation, chest pains, fevers, chills, or shortness of breath. No all eviating or aggravating factors noted. The patient was seen in the hospital in postoperative room on the medical surgical floor. ALLERGIES: SULFA. The patient states that he swells up like a balloon when he is exposed to SULFA-B ASED DRUGS. PAST MEDICAL HISTORY: Positive for diabetes mellitus type 2; CKD stage 3B; left lower extremity BKA; coronary artery disease with 2 stents, stenting in the right iliac artery as well; congestive heart failure, systolic and diastolic; hypertension; hyperlipidemia; anxiety; and proteinuria. FAMILY HISTORY: Positive for diabetes and high blood pressure. SOCIAL HISTORY: Denies any drinking or smoking. MEDICATIONS: See MAR. REVIEW OF SYSTEMS: Twelve-point review of systems performed. Pertinent positives in HPI, otherwise negative. PHYSICAL EXAMINATION: VITAL SIGNS: Blood pressure is 132/82, respiratory rate of 18, temperature of 98, pulse of 80, O2 sa turation 98% on room air. GENERAL: The patient is sitting in bed, comfortable, eating dinner. HEENT: NCAT. EOMI. PERRLA. Oral cavity, moist and pink. Nontender and mobile thyroid. LUNGS: Clear to auscultation bilaterally. No respiratory distress. Aerating well. No increase in AP diameter. CARDIOVASCULAR: Regular rate and rhythm. S1 and S2. Faint 1/6 systolic ejection murmur appreciated . ABDOMEN: Positive bowel sounds. Soft, nontender. No rebound or guarding noted. EXTREMITIES: 2+ peripheral pulses. Trace lower extremity edema on the right lower extremity. Left- sided BKA. NEUROLOGIC: Cranial nerves II-XII intact. Alert and oriented x2. No loss of sensory function. LABORATORY DATA: CBC abnormalities inclusive of WBC count slightly elevated at 11.1, hemoglobin of 1 0.3, hematocrit of 30.4, platelet count 479. Basic metabolic panel shows a sodium of 132, potassium of 3.1, chloride of 99, bicarbonate of 28, as well as a creatinine of 1.38 and glucose of 241. ASSESSMENT: 1. Complicated urinary tract infection, status post lithotripsy. 2. Diabetes mellitus type 2. 3. Hypertension. 4. Hyperlipidemia. 5. Peripheral vascular disease, status post left lower extremity below knee amputation. 6. Congestive heart failure, systolic and diastolic. 7. Anxiety. 8. Edematous state. 9. Chronic kidney disease, stage 3B. PLAN: At this point in time, we agree with current antibiotic regimen. We will start the patient on his home doses for aspirin, Coreg, as well as tramadol for pain, and Flomax for BPH. We will resume Plavix only if cleared by Urology and no further surgical intervention planned. We will also resume home medication Xanax, place the patient on insulin sliding scale before meals and at bedtime protoc ol for blood Accu-Cheks. Consult to Nephrology per patient's wishes. ID already consulted for antib iotic regimen management. Urine culture is pending at this point in time. The patient likely has a volume effect on his creatinine and his baseline creatinine likely is slightly higher than 1.4. Also , given the fact that he has had left lower extremity below-knee amputation, his EGFR is likely much lower than that has been calculated. The patient at this point in time does not exhibit any uremic s ymptomatology. Potassium to be replaced. Hyponatremia, likely secondary to excess free water from e dematous state. Renal was consulted. We will start the patient on Lasix for removal of free water. We will start the patient on potassium 20 mEq p.o. daily as well and monitor labs accordingly. Pota ssium to be held if levels go above 5. Case and plan discussed with the patient in length. He understands and agrees with this plan.
[2017-12-27] MEDS: Atorvastatin Calcium 40 MG TAB PO SCH (20:41)
[2017-12-27] MEDS: Piperacillin/Tazobactam 3.375 GM in Sodium Chloride 0.9% 100 ML IVPB SCH (20:41)
[2017-12-27] MEDS: traMADol HCl 50 MG TAB PO PRN (20:42)
[2017-12-27] MEDS: HumaLOG 300 UNITS/3 ML VIAL SC PRN (21:55)
[2017-12-27] MEDS ORDERED: Acetaminophen 325 MG TAB PO PRN ×2 (22:38)
[2017-12-28] MEDS: Piperacillin/Tazobactam 3.375 GM in Sodium Chloride 0.9% 100 ML IVPB SCH ×3 (03:53→20:15)
[2017-12-28] MEDS: HumaLOG 300 UNITS/3 ML VIAL SC PRN (05:09)
[2017-12-28] MEDS: Insulin NPH/Reg Insulin Hm 300 UNITS/3 ML VIAL SC SCH ×2 (08:41→17:26)
[2017-12-28] MEDS: Clopidogrel Bisulfate 75 MG TAB PO SCH (08:43)
[2017-12-28] MEDS: Aspirin 325 mg Enteric Coated Tablet PO SCH (08:43)
[2017-12-28] MEDS: Carvedilol 25 MG TAB PO SCH ×2 (08:43→17:26)
[2017-12-28] MEDS: Docusate 100 MG CAP PO SCH (08:44)
[2017-12-28] MEDS: Tamsulosin HCl 0.4 MG CAP PO SCH (08:44)
[2017-12-28] MEDS: Potassium Chloride 20 MEQ TAB PO SCH ×8 (08:47→20:17)
[2017-12-28] MEDS ORDERED: Furosemide 20 MG TAB PO PRN (09:00)
[2017-12-28 09:17] LABS: Anion Gap 10 mmol/L (10-20); BUN (Urea Nitrogen) 17 mg/dL (8.4-25.7); Calc. Creatinine Clearance 166 mL/min (70-130); Calcium 8.1 mg/dL (7.8-10.44); Carbon Dioxide 28 mmol/L (23-31); Chloride 100 mmol/L (98-107); Estimated GFR-MDRD 56; Glucose 267 mg/dL (80-115); Potassium 3.2 mmol/L (3.5-5.1); Sodium 135 mmol/L (136-145)
--- NOTE | 2017-12-28 11:56 | PDOC.PN ---
- Subjective Encounter Start Date: 12/28/17 Encounter Start Time: 11:10 -: old records requested/rev Pt seen and examined, chart reviewed in its entirety, this is my first visit with this patient Admitted for obstructive uropathy with hydro, NISH, DM2. consulted for medical management. Taken to cysto for laser litho. culture sent. afebrile, tolerating zosyn, ID consulted yesterday. Pt denies F/C, no N/V/D/C, no CP or SOB, no new complaints 10 point ROS performed and neg for all systems except as per HPI - Objective MAR Reviewed: Yes Vital Signs & Weight: Vital Signs (12 hours) Temp Pulse Resp BP BP Pulse Ox 12/28/17 04:00 99.1 F 103 H 16 162/72 H 93 L 12/28/17 00:00 98.6 F 104 H 18 119/56 L 92 L Weight Weight 434 lb 15.552 oz I&O: 12/27/17 12/28/17 12/29/17 06:59 06:59 06:59 Intake Total 480 200 Output Total 850 Balance -370 200 Result Diagrams: 12/27/17 14:53 12/28/17 08:49 Additional Labs: Accuchecks 12/28/17 12/27/17 05:02 21:49 POC Glucose 337 H 325 H Radiology Reviewed by me: Yes EKG Reviewed by me: Yes Phys Exam - Physical Examination Constitutional: NAD HEENT: PERRLA, moist MMs, sclera anicteric, oral pharynx no lesions Neck: no nodes, no JVD, supple, full ROM Respiratory: no wheezing, no rales, no rhonchi, clear to auscultation bilateral Cardiovascular: RRR, no significant murmur, no rub Gastrointestinal: soft, non-tender, no distention, positive bowel sounds Musculoskeletal: no edema, pulses present Neurological: non-focal, normal sensation, moves all 4 limbs Lymphatic: no nodes Psychiatric: normal affect, A&O x 3 Skin: no rash, normal turgor, cap refill <2 seconds Dx/Plan (1) Chronic systolic CHF (congestive heart failure) Code(s): I50.22 - CHRONIC SYSTOLIC (CONGESTIVE) HEART FAILURE Status: Chronic (2) NISH (acute kidney injury) Code(s): N17.9 - ACUTE KIDNEY FAILURE, UNSPECIFIED Status: Resolved (3) Hydronephrosis Code(s): N13.30 - UNSPECIFIED HYDRONEPHROSIS Status: Acute Qualifiers: Hydronephrosis type: with renal calculous obstruction Qualified Code(s): N13.2 - Hydronephrosis with renal and ureteral calculous obstruction (4) Nephrolithiasis Status: Chronic (5) CKD (chronic kidney disease) stage 2, GFR 60-89 ml/min Code(s): N18.2 - CHRONIC KIDNEY DISEASE, STAGE 2 (MILD) Status: Chronic (6) Cardiomyopathy Code(s): I42.9 - CARDIOMYOPATHY, UNSPECIFIED Status: Chronic Qualifiers: Cardiomyopathy type: unspecified Qualified Code(s): I42.9 - Cardiomyopathy , unspecified Comment: Non-ischemic with ischemic (7) DM2 (diabetes mellitus, type 2) Status: Chronic Qualifiers: Diabetes mellitus half-way insulin use: without half-way use Diabetes mellitus complication status: with neurologic complications Diabetes mellitus complication detail: with polyneuropathy Qualified Code(s): E11.42 - Type 2 diabetes mellitus with diabetic polyneuropathy (8) Hypertension Code(s): I10 - ESSENTIAL (PRIMARY) HYPERTENSION Status: Chronic Qualifiers: Hypertension type: essential hypertension Qualified Code(s): I10 - Essential (primary) hypertension (9) Complicated UTI (urinary tract infection) Code(s): N39.0 - URINARY TRACT INFECTION, SITE NOT SPECIFIED Status: Acute Comment: POA/ hx of peptostrep, MSSA in past. on zosyn, will cover, GPC in prs and clusters. afebirle, WBC stable and improved. (10) Pyelonephritis Code(s): N12 - TUBULO-INTERSTITIAL NEPHRITIS, NOT SPCF ACUTE OR CHRONIC Status: Acute Comment: S/P removal of obstructing stone. follow up cultures (11) Severe sepsis Code(s): A41.9 - SEPSIS, UNSPECIFIED ORGANISM; R65.20 - SEVERE SEPSIS WITHOUT SEPTIC SHOCK Status: Acute Comment: tachy, elevated WBC, bacterial infection , fevers and NISH. resolving, POA - Plan * .
--- NOTE | 2017-12-28 12:54 | CON ---
DATE OF CONSULTATION: 12/28/2017 REASON FOR CONSULTATION: Chronic kidney disease, stage 3. HISTORY OF PRESENT ILLNESS: This is a very pleasant 62-year-old gentleman with a history of CKD and acute kidney injury, is being admitted for bilateral lithotripsy. The patient denies any nausea, vom iting, or chest pain. The patient has had coronary artery disease and stents before. The patient de nies any nausea, vomiting, or chest pain. PAST MEDICAL HISTORY: Diabetes mellitus, acute kidney injury, left lower BKA, coronary artery diseas e with stents, peripheral vascular disease, hypertension, anxiety, proteinuria. SOCIAL HISTORY: No alcohol or drug use. FAMILY HISTORY: Negative for ESRD. ALLERGIES: Reviewed. REVIEW OF SYSTEMS: Fifteen-point review of systems was performed and negative except as noted above. GENERAL: Weakness. HEAD: Headache. NECK: No swelling or lumps. NOSE: No epistaxis or discharge. EYES: No diplopia or pain. RESPIRATORY: Dyspnea. CARDIOVASCULAR: Chest pain. GASTROINTESTINAL: Nausea. /UNDERLAY STITCHER: Hematuria. MUSCULOSKELETAL: No joint pain. NEUROPSYCHIATRIC SYSTEMS: No suicidal ideation. No ideation. SKIN: Denies any rash or ulcer. CONSTITUTIONAL: No fever or chills. OBJECTIVE: See above. GENERAL: Patient is awake, alert. VITAL SIGNS: Afebrile, pulse 103, breathing at 16, blood pressure was 132/84. GENERAL APPEARANCE AND MENTAL STATUS: Fair. HEAD/NECK: Normocephalic. Atraumatic. EYES: EOMI. No deformity. EARS: Clear. No ulcers. NOSE: Intact. No lesions. MOUTH: Clear. No discharge. THROAT: Clear. No exudate. LUNGS: Clear. No crackles. CARDIAC: S1, S2. No rub. ABDOMEN: Benign. BS+. GENITALIA/RECTUM: Vaughn absent. BACK/EXTREMITIES: Edema 0+, ulcer. NEUROLOGICAL: Alert and motor intact. SKIN: Rash - bruise. LYMPHATICS: Edema - ulcer. LABORATORY DATA: Labs show creatinine is 1.2. ASSESSMENT AND RECOMMENDATIONS: 1. Acute kidney injury with chronic kidney disease, improved. 2. Hypokalemia. Recommend potassium replacement. 3. Hyponatremia, stable. 4. Medications based on glomerular filtration rate are appropriate. 5. I will follow the patient as needed.
[2017-12-28] MEDS ORDERED: Vancomycin HCl 1 GM in Premix Bag 1 BAG IVPB SCH (18:00)
--- NOTE | 2017-12-28 19:19 | CON ---
DATE OF CONSULTATION: 12/28/2017 REASON FOR CONSULTATION: Lithotripsy with abnormal urinalysis. HISTORY OF PRESENT ILLNESS: A 62-year-old patient known to me from prior visit, who has history of t ype 2 diabetes, stage 3 renal insufficiency, and prior complications left foot which ended up in left BKA, who was treated for nephrolithiasis with lithotripsy. The patient had a positive urine culture and little bit of neutrophilia. No headaches. No fever. No cough, sputum production, or chest patrick n. No abdominal pain. No genitourinary symptoms. PAST MEDICAL HISTORY: Type 2 diabetes, CKD stage 3, BKA left lower extremity, coronary disease with prior stenting, peripheral vascular disease with iliac artery stenting, CHF, and hypertension. SOCIAL HISTORY: Never a smoker. He lives in [place] with . FAMILY HISTORY: Diabetes. CURRENT MEDICATIONS: Tylenol, Xanax, Ecotrin, Lipitor, Coreg, Plavix, Colace, Lasix, glucagon, insul in, Zosyn, and vancomycin. PHYSICAL EXAMINATION: VITAL SIGNS: T-max 99.1, blood pressure 120/50, pulse 72, respirations 20, O2 sat 96%. SKIN: Shows no Vaughn catheter, peripheral IV access. No lymphadenopathy. HEENT: Ocular movements conjugate. Oral cavity with numerous missing teeth. NECK: Supple. LUNGS: Symmetric clear breath sounds. HEART: S1, S2, regular rate without murmurs. No S3, S4. ABDOMEN: Soft, not distended or tender. No ascites. No bladder distention or organomegaly. GENITOURINARY: No genital abnormalities. EXTREMITIES: No joint inflammatory activity. Left BKA stump appears okay with no lesions. The ilad ent has evidence of lymphedema, stasis dermatitis, and right lower extremity pitting edema. Pulses a re diminished in dorsalis pedis. He moves extremities equally. NEUROLOGIC: Cognitive function appears to be intact. LABORATORY DATA: White cell count 11.1, hemoglobin 10.3, MCV 89, platelets 479, 69% neutrophils. So dium 135, creatinine down from 1.38 to 1.29, glucose 241, calcium 8.3. There is a kidney aspirate cu lture from the right side during the lithotripsy procedure, which showed a mixed culture, moderate gr am positive cocci in pairs and clusters, many wbc's seen. ASSESSMENT AND PLAN: Type 2 diabetes with stage 3 renal insufficiency; peripheral vascular disease; nephrolithiasis, status post lithotripsy with evidence of inflammatory process right kidney with posi tive cultures. We will wait for the final culture results and then determine the need for continuati on of IV therapy versus transitioning to oral regimen, should treat for at least two weeks.
[2017-12-28] MEDS: Atorvastatin Calcium 40 MG TAB PO SCH (20:17)
[2017-12-29] MEDS: traMADol HCl 50 MG TAB PO PRN ×2 (01:07→21:51)
[2017-12-29] MEDS: Piperacillin/Tazobactam 3.375 GM in Sodium Chloride 0.9% 100 ML IVPB SCH ×3 (03:02→20:03)
[2017-12-29] MEDS: HumaLOG 300 UNITS/3 ML VIAL SC PRN ×2 (06:09→12:29)
[2017-12-29 06:18] LABS: #Basophils 0.1 thou/uL (0.0-0.2); #Eosinphils 0.3 thou/uL (0.0-0.7); #Lymphocytes 2.2 thou/uL (1.20-3.40); #Monocytes 0.6 thou/uL (0.11-0.59); #Neutrophils 5.4 thou/uL (1.40-6.50); %Basophils 1.2 % (0.0-1.0); %Eosinophils 3.7 % (0.0-10.0); %Lymphocytes 25.8 % (21.0-51.0); %Neutrophils 62.3 % (42.0-75.0); Hemoglobin 10.1 g/dL (14.0-18.0); Mean Corpuscular HGB CONC 33.2 g/dL (32.0-36.0); Mean Corpuscular Hemoglobin 29.7 pg (27.0-31.0); Mean Corpuscular Volume 89.2 fl (80.0-94.0); Mean Platelet Volume 6.6 fL (7.4-10.4); Platelet Count 420 thou/uL (130-400); RBC Distribution Width 13.2 % (11.5-14.5); Red Blood Cell (RBC) Count 3.41 mill/uL (4.70-6.10); White Blood Cell (WBC) Count 8.6 thou/uL (4.8-10.8)
[2017-12-29 06:36] LABS: Anion Gap 9 mmol/L (10-20); BUN (Urea Nitrogen) 15 mg/dL (8.4-25.7); Calc. Creatinine Clearance 86 mL/min (70-130); Calcium 8.2 mg/dL (7.8-10.44); Carbon Dioxide 27 mmol/L (23-31); Chloride 104 mmol/L (98-107); Estimated GFR-MDRD 70; Glucose 224 mg/dL (80-115); Magnesium 1.5 mg/dL (1.6-2.6); Potassium 3.6 mmol/L (3.5-5.1); Sodium 136 mmol/L (136-145)
[2017-12-29] MEDS ORDERED: Magnesium 2 GM/NS 0.9% 100 ML 2 GM in Premix Bag 1 BAG IVPB SCH (08:00)
[2017-12-29] MEDS: Insulin NPH/Reg Insulin Hm 300 UNITS/3 ML VIAL SC SCH ×2 (08:25→16:05)
[2017-12-29] MEDS: Carvedilol 25 MG TAB PO SCH ×2 (08:27→16:11)
[2017-12-29] MEDS: Potassium Chloride 20 MEQ TAB PO SCH ×2 (08:28)
[2017-12-29] MEDS: Aspirin 325 mg Enteric Coated Tablet PO SCH (08:29)
[2017-12-29] MEDS: Tamsulosin HCl 0.4 MG CAP PO SCH (08:29)
[2017-12-29] MEDS: Clopidogrel Bisulfate 75 MG TAB PO SCH (08:29)
[2017-12-29] MEDS: Docusate 100 MG CAP PO SCH (08:30)
--- NOTE | 2017-12-29 13:31 | PDOC.PN ---
- Subjective Encounter Start Date: 12/29/17 Encounter Start Time: 10:20 Pt feeling better, motoring aorund in the halls. Denies F/C, no N/V/D/C, no flank pain, no CP or sOB Ucx with CoNS, has not had in a prior specimen here. 10 point rOS performed and neg for all systems except as per HPI - Objective MAR Reviewed: Yes Vital Signs & Weight: Vital Signs (12 hours) Temp Pulse Resp BP BP Pulse Ox 12/29/17 11:28 98.1 F 72 18 127/58 L 92 L 12/29/17 08:00 98.2 F 79 20 92 L 12/29/17 07:21 98.2 F 79 20 128/62 92 L 12/29/17 04:00 98.1 F 80 16 145/68 H Weight Weight 187 lb I&O: 12/28/17 12/29/17 12/30/17 06:59 06:59 06:59 Intake Total 480 2720 Output Total 850 1100 Balance -370 1620 Result Diagrams: 12/29/17 05:55 12/29/17 05:55 Additional Labs: Accuchecks 12/29/17 12/29/17 12/28/17 11:26 05:58 20:09 POC Glucose 190 H 215 H 295 H 12/28/17 12/27/17 17:25 09:58 POC Glucose 248 H 201 H Radiology Reviewed by me: Yes Phys Exam - Physical Examination Constitutional: NAD HEENT: PERRLA, moist MMs, sclera anicteric, oral pharynx no lesions Neck: no nodes, no JVD, supple, full ROM Respiratory: no wheezing, no rales, no rhonchi, clear to auscultation bilateral Cardiovascular: RRR, no significant murmur, no rub Gastrointestinal: soft, non-tender, no distention, positive bowel sounds Musculoskeletal: pulses present, edema present BLE Paralegia Lymphatic: no nodes Psychiatric: normal affect Skin: no rash, normal turgor, cap refill <2 seconds Dx/Plan (1) Chronic systolic CHF (congestive heart failure) Code(s): I50.22 - CHRONIC SYSTOLIC (CONGESTIVE) HEART FAILURE Status: Chronic (2) Hydronephrosis Code(s): N13.30 - UNSPECIFIED HYDRONEPHROSIS Status: Acute Qualifiers: Hydronephrosis type: with renal calculous obstruction Qualified Code(s): N13.2 - Hydronephrosis with renal and ureteral calculous obstruction (3) Nephrolithiasis Status: Chronic (4) CKD (chronic kidney disease) stage 2, GFR 60-89 ml/min Code(s): N18.2 - CHRONIC KIDNEY DISEASE, STAGE 2 (MILD) Status: Chronic (5) Cardiomyopathy Code(s): I42.9 - CARDIOMYOPATHY, UNSPECIFIED Status: Chronic Qualifiers: Cardiomyopathy type: unspecified Qualified Code(s): I42.9 - Cardiomyopathy , unspecified Comment: Non-ischemic with ischemic (6) DM2 (diabetes mellitus, type 2) Status: Chronic Qualifiers: Diabetes mellitus security program manager insulin use: without security program manager use Diabetes mellitus complication status: with neurologic complications Diabetes mellitus complication detail: with polyneuropathy Qualified Code(s): E11.42 - Type 2 diabetes mellitus with diabetic polyneuropathy (7) Hypertension Code(s): I10 - ESSENTIAL (PRIMARY) HYPERTENSION Status: Chronic Qualifiers: Hypertension type: essential hypertension Qualified Code(s): I10 - Essential (primary) hypertension (8) Complicated UTI (urinary tract infection) Code(s): N39.0 - URINARY TRACT INFECTION, SITE NOT SPECIFIED Status: Acute Comment: POA/ hx of peptostrep, MSSA in past. on zosyn, adding in Vanc, GPC in prs and clusters. afebirle, WBC stable and improved. (9) Pyelonephritis Code(s): N12 - TUBULO-INTERSTITIAL NEPHRITIS, NOT SPCF ACUTE OR CHRONIC Status: Acute Comment: S/P removal of obstructing stone. follow up cultures reveals CoNS, redose Vanc, awaiting Sensitivities, likely out tomorrow,. CoNS usually oxacillin resistant (10) Severe sepsis Code(s): A41.9 - SEPSIS, UNSPECIFIED ORGANISM; R65.20 - SEVERE SEPSIS WITHOUT SEPTIC SHOCK Status: Resolved Comment: tachy, elevated WBC, bacterial infection, fevers and NISH. resolved, POA (11) NISH (acute kidney injury) Code(s): N17.9 - ACUTE KIDNEY FAILURE, UNSPECIFIED Status: Resolved - Plan * .
[2017-12-29] MEDS: Vancomycin HCl 1.25 GM in Sodium Chloride 0.9% 250 ML 250 ML IVPB SCH (14:43)
[2017-12-29] MEDS: Atorvastatin Calcium 40 MG TAB PO SCH (20:03)
[2017-12-30] MEDS: Vancomycin HCl 1.25 GM in Sodium Chloride 0.9% 250 ML 250 ML IVPB SCH ×2 (01:13→14:05)
[2017-12-30] MEDS: Piperacillin/Tazobactam 3.375 GM in Sodium Chloride 0.9% 100 ML IVPB SCH (04:28)
[2017-12-30] MEDS: HumaLOG 300 UNITS/3 ML VIAL SC PRN ×3 (05:50→16:00)
[2017-12-30 07:26] VITALS: BP 174/90; TEMP 98.3
[2017-12-30] MEDS: Insulin NPH/Reg Insulin Hm 300 UNITS/3 ML VIAL SC SCH ×2 (09:37→15:59)
[2017-12-30] MEDS: Potassium Chloride 20 MEQ TAB PO SCH ×2 (09:38)
[2017-12-30] MEDS: Docusate 100 MG CAP PO SCH (09:39)
[2017-12-30] MEDS: Tamsulosin HCl 0.4 MG CAP PO SCH (09:39)
[2017-12-30] MEDS: Clopidogrel Bisulfate 75 MG TAB PO SCH (09:39)
[2017-12-30] MEDS: Aspirin 325 mg Enteric Coated Tablet PO SCH (09:39)
[2017-12-30] MEDS: Carvedilol 25 MG TAB PO SCH (09:39)
[2017-12-30] MEDS ORDERED: Linezolid 600 MG TAB PO SCH (11:00)
[2017-12-30 11:21] LABS: CA Oxalate Monohydrate 90 % (.); Color Brown (.); Comment Note: (.); Stone Weight 111.3 mg (.)
--- NOTE | 2017-12-30 14:53 | PDOC.PN ---
- Subjective Encounter Start Date: 12/30/17 Encounter Start Time: 10:30 Pt feeling better, going around in his WC. PT with CONS, sens to tetra, LZD, Vanc. ID consulted by Dr Katz, will start po Zyvox as we are Rx as pyelo No F/c, no N/V/D/c, no CP or sOB, urine clear 10 point ROS performed and neg for all systems except as above - Objective MAR Reviewed: Yes Vital Signs & Weight: Vital Signs (12 hours) Temp Pulse Resp BP BP Pulse Ox 12/30/17 08:00 98.3 F 92 20 93 L 12/30/17 07:10 98.3 F 92 20 174/90 H 93 L 12/30/17 04:00 98.0 F 84 16 179/82 H 95 Weight Weight 187 lb I&O: 12/29/17 12/30/17 12/31/17 06:59 06:59 06:59 Intake Total 2720 2380 Output Total 1100 1400 Balance 1620 980 Result Diagrams: 12/29/17 05:55 12/29/17 05:55 Additional Labs: Accuchecks 12/30/17 12/30/17 12/29/17 12:07 05:46 21:23 POC Glucose 293 H 285 H 206 H 12/29/17 15:36 POC Glucose 170 H Phys Exam - Physical Examination Constitutional: NAD HEENT: PERRLA, moist MMs, sclera anicteric, oral pharynx no lesions Neck: no nodes, no JVD, supple, full ROM Respiratory: no wheezing, no rales, no rhonchi, clear to auscultation bilateral Cardiovascular: RRR, no significant murmur, no rub Gastrointestinal: soft, non-tender, no distention, positive bowel sounds no CVA tenderness Musculoskeletal: pulses present, edema present Lymphatic: no nodes Psychiatric: normal affect, A&O x 3 Skin: no rash, normal turgor, cap refill <2 seconds Dx/Plan (1) Chronic systolic CHF (congestive heart failure) Code(s): I50.22 - CHRONIC SYSTOLIC (CONGESTIVE) HEART FAILURE Status: Chronic (2) Hydronephrosis Code(s): N13.30 - UNSPECIFIED HYDRONEPHROSIS Status: Resolved Qualifiers: Hydronephrosis type: with renal calculous obstruction Qualified Code(s): N13.2 - Hydronephrosis with renal and ureteral calculous obstruction Comment: s/p cysto and stent with laser litho and stone extraction. to return close to end of abx for stent removal (3) Nephrolithiasis Status: Chronic (4) CKD (chronic kidney disease) stage 2, GFR 60-89 ml/min Code(s): N18.2 - CHRONIC KIDNEY DISEASE, STAGE 2 (MILD) Status: Chronic (5) Cardiomyopathy Code(s): I42.9 - CARDIOMYOPATHY, UNSPECIFIED Status: Chronic Qualifiers: Cardiomyopathy type: unspecified Qualified Code(s): I42.9 - Cardiomyopathy , unspecified Comment: Non-ischemic with ischemic (6) DM2 (diabetes mellitus, type 2) Status: Chronic Qualifiers: Diabetes mellitus residential insulin use: without ferry terminal agent use Diabetes mellitus complication status: with neurologic complications Diabetes mellitus complication detail: with polyneuropathy Qualified Code(s): E11.42 - Type 2 diabetes mellitus with diabetic polyneuropathy (7) Hypertension Code(s): I10 - ESSENTIAL (PRIMARY) HYPERTENSION Status: Chronic Qualifiers: Hypertension type: essential hypertension Qualified Code(s): I10 - Essential (primary) hypertension (8) Complicated UTI (urinary tract infection) Code(s): N39.0 - URINARY TRACT INFECTION, SITE NOT SPECIFIED Status: Acute Comment: POA/ hx of peptostrep, MSSA in past. on zosyn, adding in Vanc, GPC in prs and clusters. afebirle, WBC stable and improved. (9) Pyelonephritis Code(s): N12 - TUBULO-INTERSTITIAL NEPHRITIS, NOT SPCF ACUTE OR CHRONIC Status: Acute Comment: S/P removal of obstructing stone. follow up cultures reveals CoNS, redose Vanc, awaiting Sensitivities, likely out tomorrow,. CoNS usually oxacillin resistant (10) Severe sepsis Code(s): A41.9 - SEPSIS, UNSPECIFIED ORGANISM; R65.20 - SEVERE SEPSIS WITHOUT SEPTIC SHOCK Status: Resolved Comment: tachy, elevated WBC, bacterial infection, fevers and NISH. resolved, POA (11) NISH (acute kidney injury) Code(s): N17.9 - ACUTE KIDNEY FAILURE, UNSPECIFIED Status: Resolved - Plan cont current plan of care, continue antibiotics * . change to po LZD, script sent, anticiapte d/c. Will complete 14 days Rx, 11 to go. will S/O in anticipation of D/C
== END 2017-12-30 16:23 | disposition home or self-care (01) | DRG 872 ==
LOC: SDC 08:38 → ONC 16:00 → SDC 18:26 → ONC 18:26
PROVIDERS: ADMIT Urology; ATTEND Urology
PROC: 0TCB8ZZ Extirpation of Matter from Bladder, Via Natural or Artificial Opening Endoscopic (ICD-10-PCS; principal; 2017-12-27)
PROC: 0T768DZ Dilation of Right Ureter with Intraluminal Device, Via Natural or Artificial Opening Endoscopic (ICD-10-PCS; 2017-12-27)
DX: A41.9 Sepsis, unspecified organism (principal); E11.22 Type 2 diabetes mellitus with diabetic chronic kidney disease; E11.42 Type 2 diabetes mellitus with diabetic polyneuropathy; N17.9 Acute kidney failure, unspecified; N18.3 Chronic kidney disease, stage 3 (moderate); N13.6 Pyonephrosis; I13.0 Hypertensive heart and chronic kidney disease with heart failure and stage 1 through stage 4 chronic kidney disease, or unspecified chronic kidney disease; E87.1 Hypo-osmolality and hyponatremia; I50.42 Chronic combined systolic (congestive) and diastolic (congestive) heart failure; I42.9 Cardiomyopathy, unspecified; R65.20 Severe sepsis without septic shock; N21.0 Calculus in bladder; E87.6 Hypokalemia; E11.51 Type 2 diabetes mellitus with diabetic peripheral angiopathy without gangrene; I25.10 Atherosclerotic heart disease of native coronary artery without angina pectoris; E78.5 Hyperlipidemia, unspecified; F41.9 Anxiety disorder, unspecified; Z87.891 Personal history of nicotine dependence; Z95.5 Presence of coronary angioplasty implant and graft; Z89.512 Acquired absence of left leg below knee; Z88.2 Allergy status to sulfonamides; Z79.02 Long term (current) use of antithrombotics/antiplatelets; Z79.4 Long term (current) use of insulin; Z79.82 Long term (current) use of aspirin
CPT/HCPCS: 36415; 36416; 74420; 80048; 82365; 83735; 85025; 87070; 87077; 87186; 87205; 88300; A4216; C1758; J2001; J2250; J2543; J2704; J3010; J3370; J3475; J7050; Q9961

== ENCOUNTER 2018-01-10 06:26 | Day surgery (SDC) | payer MEDICARE ==
[2018-01-07 09:18] VITALS: BMI 28.4
[2018-01-10] MEDS ORDERED: Promethazine HCl 25 MG/ML VIAL ONE (07:04)
[2018-01-10] MEDS ORDERED: Fentanyl 100 MCG/2 ML VIAL ONE (07:04)
[2018-01-10] MEDS ORDERED: HYDROcodone/Acetaminophen 7.5/325 mg Tablet ONE (07:23)
[2018-01-10] MEDS ORDERED: Insulin Regular 300 UNITS/3 ML VIAL ONE ×2 (07:23→07:24)
[2018-01-10] MEDS ORDERED: Midazolam HCl 2 mg/2 ml Vial ONE (07:27)
[2018-01-10] MEDS ORDERED: Iothalamate Meglumine 60% 50 ML VIAL FS ONE (07:41)
[2018-01-10] MEDS ORDERED: Furosemide 20 MG/2 ML VIAL ONE (08:11)
--- NOTE | 2018-01-10 09:38 | RAD ---
RETROGRADE URETEROGRAM INTRAOPERATIVE FLUOROSCOPY: HISTORY: Ureteral obstruction. FINDINGS: Intraoperative fluoroscopy was provided for retrograde study as performed by Dr. Katz. Multiple sp ot fluorosocpic images show catheterization and contrast opacification of a mildly distended right re nal collecting system. Final image shows double pigtail stent decompressing the right urinary system . POS: [facility]
--- NOTE | 2018-01-10 09:59 | OP ---
DATE OF PROCEDURE: 01/10/2018 PREOPERATIVE DIAGNOSIS: Right hydronephrosis. POSTOPERATIVE DIAGNOSIS: Right hydronephrosis. PROCEDURES PERFORMED: Cystoscopy, removal of right stent, right rigid and right flexible ureteroscop y, right ureteral brushing and biopsy and stent replacement. SURGEON: Dr. Tyron Katz. ANESTHETIC: General. ESTIMATED BLOOD LOSS: Less than 50 mL. DRAINS PLACED: A 6 x 26 Polaris double-J stent with a string left attached. FINDINGS: He had some inflammation at the junction of the proximal two-thirds and distal one-third o f the ureter or slightly below the pelvic brim. This was brushed and biopsied. It did not look very suspicious under direct vision. 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 Number of the calices and renal papilla looked abnormal. They did not look suspicious for cancer. 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 Certainly possible this is what had caused him to develop the hydro as he is diabetic, has poor vascular disease and has had chronic upper tract colonization with strep species. OPERATIVE TECHNIQUE: Obtained written verbal consent from the patient after receiving IV antibiotics , he was taken the operating suite. He was placed in supine position on the treatment table. PlexiP ulses was placed on his right lower extremity and he has an absent left lower extremity. He was give n a general anesthetic, oral intubation, placed in the dorsal lithotomy position, sterilely prepped a nd draped. Cystoscopy was performed with a 22-German sheath. This was well lubricated and passed un maria del carmen direct vision through the male urethra and into the urinary bladder with aid of a 30-degree lens and video camera and monitor. The bladder was filled and emptied a number of times and then the dist al end of the indwelling stent was grasped with a pair of flexible grasping forceps and brought out t hrough the urethral meatus. A guidewire was fed up through this and up in the area of the renal pelv is and the stent was discarded and dual lumen seen. A 5-German Pollack catheter was then placed over this guidewire and up into the area of the renal pelvis/proximal ureter. The wire was removed and a bout 5 mL of contrast were injected and just to be sure we were in the correct position. The wire wa s replaced. The open-ended catheter was removed, the dual-lumen catheter was placed over this guidew glenis and then a second guidewire was placed up into the renal pelvis and the dual lumen was removed. We then brought in a small caliber graduated rigid ureteroscope and then under direct vision and went through the male urethra into the bladder up the right ureter and up to the region of the UPJ. The only abnormality which is some slight edema as mentioned. We then went ahead and removed this and th en went up over one of our guidewires with a flexible ureteroscope. This went all the way up into th e renal pelvis and we searched through each of the upper collecting system and calyceal system with t he findings as above and then looked at the ureter on the way out. We then went up one more time wit h the rigid ureteroscope and did brushings and biopsy of the area with the proximal two-thirds and di stal one-third met brushing first and then biopsy x2. We then went ahead and backloaded existing a g uidewire through the scope and placed stent up over this guidewire with the aid of a pusher pushed up into place with the proximal end coil in renal pelvis, distal end coiled in the bladder when the wir e was removed. Of note in fact the patient was given 20 of Lasix after contrast had been injected in the collecting system on the right side and did appear to clear with the Lasix, suggesting that the obstruction probably is not current problem. The plan will be to leave the stent in for a few days, get the pathology back in it. If the pathology is not showing malignancy then likely get a stent rem brad in the office in the next few days.
[2018-01-10] MEDS ORDERED: PHENYLEPHRINE-NS 100 MCG/ML 10 ML SYRINGE ONE (13:56)
[2018-01-10] MEDS ORDERED: Lidocaine 1% PF 5 ML VIAL ONE (13:56)
[2018-01-10] MEDS ORDERED: ePHEDrine/0.9% NaCl/PF SYRINGE 50 mg/10 ml ONE (13:56)
[2018-01-10] MEDS ORDERED: Dexamethasone 20 MG/5 ML VIAL ONE ×2 (13:56)
[2018-01-10] MEDS ORDERED: PROPOFOL 200 MG/20 ML VIAL ONE (13:56)
== END 2018-01-10 12:40 | disposition home or self-care (01) ==
LOC: SDC 06:26
PROVIDERS: ATTEND Urology
PROC: 0TB68ZX Excision of Right Ureter, Via Natural or Artificial Opening Endoscopic, Diagnostic (ICD-10-PCS; principal; 2018-01-10)
PROC: 0T768DZ Dilation of Right Ureter with Intraluminal Device, Via Natural or Artificial Opening Endoscopic (ICD-10-PCS; 2018-01-10)
DX: N13.39 Other hydronephrosis (principal); Z88.2 Allergy status to sulfonamides; Z98.890 Other specified postprocedural states
CPT/HCPCS: 36416; 74420; 88104; 88112; 88305; 96372; C1758; J1100; J1815; J1940; J2001; J2250; J2550; J2704; J3010; J3370; Q9961

== ENCOUNTER 2018-01-13 19:50 | Emergency (ER) | payer MEDICARE ==
[2018-01-13] MEDS ORDERED: Lorazepam 2 MG/ML VIAL ONE (20:33)
[2018-01-13] MEDS ORDERED: Morphine 4 MG/ML VIAL ONE (20:43)
== END 2018-01-14 01:00 | disposition home or self-care (01) ==
LOC: ERS 19:50
DX: R33.9 Retention of urine, unspecified (principal); R31.9 Hematuria, unspecified; I25.2 Old myocardial infarction; I11.0 Hypertensive heart disease with heart failure; I50.9 Heart failure, unspecified; E11.40 Type 2 diabetes mellitus with diabetic neuropathy, unspecified; F41.9 Anxiety disorder, unspecified; Z79.4 Long term (current) use of insulin; Z79.899 Other long term (current) drug therapy; Z79.82 Long term (current) use of aspirin
CPT/HCPCS: 51703; 96361; 96374; 96375; J2060; J2270

== ENCOUNTER 2018-01-21 15:33 | Inpatient (IN) | payer MEDICARE ==
[2018-01-21 16:28] LABS: Base Excess-Venous 1.8 mmol/L (0 (+/- 2.5)); Bicarbonate (HCO3v) 27.3 mmol/L (1.0-85.0); CO2 Tension (PvCO2) 46.2 mmHg (41.0-51.0); Calcium, Ionized 1.13 mmol/L (1.12-1.32); Hemoglobin - Calc 10.1 g/dL (12.0-18.0); O2 Tension (PvO2) 15.8 mmHg (35.0-45.0); T. Carbon Dioxide 28.7 mmol/L (1.0-85.0); vO2 Saturation-calc 20.1 % (94-98)
[2018-01-21 16:42] LABS: Bilirubin Negative (Negative); Blood, Urine Moderate (Negative); Clarity TURBID (Clear); Glucose, Urine (Dipstick) 500 mg/dL (Negative); Leukocyte Large (Negative); Nitrite Negative (Negative); Protein, Urine (Dipstick) 100 mg/dL (Neg-Trace); Urobilinogen 0.2 mg/dL (0.2-1.0)
[2018-01-21 16:43] LABS: #Basophils 0.1 thou/uL (0.0-0.2); #Eosinphils 0.3 thou/uL (0.0-0.7); #Lymphocytes 1.8 thou/uL (1.20-3.40); #Monocytes 0.9 thou/uL (0.11-0.59); #Neutrophils 7.1 thou/uL (1.40-6.50); %Basophils 0.8 % (0.0-1.0); %Eosinophils 3.2 % (0.0-10.0); %Lymphocytes 17.5 % (21.0-51.0); %Monocytes 8.6 % (0.0-10.0); Hemoglobin 7.9 g/dL (14.0-18.0); Mean Corpuscular HGB CONC 34.3 g/dL (32.0-36.0); Mean Corpuscular Volume 87.6 fl (80.0-94.0); Mean Platelet Volume 7.8 fL (7.4-10.4); Platelet Count 385 thou/uL (130-400); RBC Distribution Width 14.1 % (11.5-14.5); Red Blood Cell (RBC) Count 2.64 mill/uL (4.70-6.10); White Blood Cell (WBC) Count 10.1 thou/uL (4.8-10.8)
[2018-01-21 16:45] LABS: Bacteria/HPF 4+ HPF (None Seen); Hyaline Casts/LPF 4-6 HYALINE CAST LPF (0-3 Hyaline); Pathc Cast-AUWi Flag 1.06 (0-2.49); RBC/HPF 21-50 HPF (0-3)
[2018-01-21] MEDS ORDERED: Potassium Chloride 20 MEQ TAB ONE (16:52)
[2018-01-21 17:05] LABS: ALT (SGPT) Less than 7 U/L (8-55); AST (SGOT) 7 U/L (5-34); Albumin 2.8 g/dL (3.4-4.8); Alkaline Phosphatase 150 U/L (40-150); Anion Gap 12 mmol/L (10-20); BUN (Urea Nitrogen) 16 mg/dL (8.4-25.7); Bilirubin, Total 0.2 mg/dL (0.2-1.2); Calc. Creatinine Clearance 0 mL/min (70-130); Carbon Dioxide 25 mmol/L (23-31); Chloride 94 mmol/L (98-107); Estimated GFR-MDRD 37; Globulin 3.3 g/dL (2.4-3.5); Glucose 524 mg/dL (80-115); Magnesium 1.5 mg/dL (1.6-2.6); Potassium 3.2 mmol/L (3.5-5.1); Protein, Total 6.1 g/dL (5.8-8.1); Sodium 128 mmol/L (136-145)
[2018-01-21] MEDS ORDERED: Lorazepam 2 MG/ML VIAL ONE (18:14)
[2018-01-21] MEDS ORDERED: Acetaminophen 325 MG TAB PO PRN (18:21)
[2018-01-21] MEDS ORDERED: Dextrose 5% in Water 1,000 ML IV PRN (18:25)
[2018-01-21] MEDS ORDERED: Dextrose 50% Abboject 50 ML SYRINGE SLOW IVP PRN (18:25)
[2018-01-21] MEDS ORDERED: Cefepime 1 GM, Admixture Fee 1 EACH in Sterile Water 10 ML SLOW IVP SCH (18:45)
[2018-01-21] MEDS ORDERED: Sodium Chloride 0.9% 1,000 ML IV SCH (21:00)
[2018-01-21] MEDS ORDERED: Heparin 5,000 UNITS/ML VIAL SC SCH (21:00)
[2018-01-21] MEDS ORDERED: Vancomycin HCl 750 MG in Sodium Chloride 0.9% 250 ML 250 ML IVPB SCH (21:00)
[2018-01-21] MEDS ORDERED: Potassium Chloride 20 MEQ TAB PO SCH (21:00)
[2018-01-21] MEDS ORDERED: Milk Of Magnesia 30 ML UDCUP PO PRN (22:09)
[2018-01-21 23:37] VITALS: BMI 28.2
[2018-01-21] MEDS: Atorvastatin Calcium 40 MG TAB PO SCH (23:42)
[2018-01-22] MEDS ORDERED: hydrALAZINE 20 MG/ML VIAL SLOW IVP PRN (01:55)
[2018-01-22] MEDS ORDERED: Furosemide 20 MG TAB PO PRN (01:56)
[2018-01-22] MEDS ORDERED: Ondansetron ODT 4 MG TAB PO PRN (01:56)
[2018-01-22] MEDS ORDERED: Promethazine 25 MG TAB PO PRN (01:56)
[2018-01-22] MEDS ORDERED: HumaLOG 300 UNITS/3 ML VIAL SC SCH (02:15)
[2018-01-22] MEDS ORDERED: cloNIDine 0.2 MG TAB PO SCH (02:15)
--- NOTE | 2018-01-22 03:00 | CON ---
DATE OF CONSULTATION: 01/21/2018 HISTORY OF PRESENT ILLNESS: This is a 62-year-old white male who I have known for the last 3 to 4 we eks after I was consulted to see him for some right hydro and a bladder stone. He had the bladder st one broken up and removed. He had a stent placed in the right side, then on 01/10, he underwent a ri gid and flexible right ureteroscopy with biopsies and brushings, and stent replacement. 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 This could be why he had the hydro. Pathol ogy from the brushings and from the biopsy all came back as benign. There is no mass that was seen. No stone that was seen. After having that done, he developed difficulty with urination, most likely because of hematuria and some clots and came into the ER probably about a week or so ago and had a c atheter placed. Went home, still had blood in his urine. I saw him about 4 days ago in the office a nd we irrigated out a lot of clot, rechecked the hemoglobin and seemed the hemoglobin dropped from 10 to 7. He was doing okay at that time, we elected not to transfuse him. His urine stayed clear. He is on Macrobid b.i.d. and we took his Vaughn out 2 days ago, took the stent out 2 days ago and his ur ine remained clear yesterday. Today, the urine became cloudy. He has been voiding small amounts, fe els like it is normal voiding in a.m. No burning, no fevers, no chills, no flank pain. [place] [facility] [place], his creatinine gone from 1 to 1.9. His hemoglobin had actually in creased up to 7.9, but his sugars were over 500. He is recommended to come in to be admitted. I hav e seen him here in the emergency room and had the nurse do an ultrasound of the bladder and he had ov er 500 mL and so with his permission, we sterilely prepped and draped him, used 2% Xylocaine jelly pa ssed a Vaughn catheter for a very purulent appearing and cloudy urine, which has now come on just 2 da ys after the Vaughn was removed. It shows greater than 50 white cells, 20-50 red cells, and 4+ bacter ia. His abdomen is currently soft and nontender. the penis is without abnormality. There is no per ineal fluctuance or mass. The testicles are descended. There is nothing to suggest epididymitis. IMPRESSION: Patient with a history of abnormal urinalysis with only one recently positive culture, w hich was from the right kidney that showed a Staph epidermidis that was highly resistant. He had bee n treated with antibiotics for that. Other cultures have been negative. He now has pyuria and bacte riuria 2 days after having his Vaughn catheter removed as well as incomplete emptying. My guess is th at his bladder is not working, probably not obstruction, but probably just a bad bladder from his serafin betes. We will leave his catheter and get his cultures done. Recommended that he be placed on some cefepime and vanc and should be hydrated and I think Dr. Barth wished him to be transfused, which is f ine. I think his best bet maybe to look at doing a cysto and placement of a suprapubic tube on if he is doing well and we know what his organism is. I reviewed his CAT scan from 12/15/2017 and it did show the bladder stone, did show the hydro. He did have a hernia repair, but I do not see any thing that would suggest that there is any bowel between the anterior abdominal wall and the urinary bladder (5:10) safely have a suprapubic tube placed. I discussed this with the patient and his there. At this point, willing to proceed on with that and we will check with him again on .
--- NOTE | 2018-01-22 03:01 | HP ---
PRIMARY CARE PHYSICIAN: Cordell Ronquillo MD PRESENTING COMPLAINT: Bilateral abnormal. HISTORY OF PRESENT ILLNESS: Mr. Andrea Narayan is a 62-year-old male with a complex medical history including CAD, peripheral vascular disease with stenting, right BKA, congestive heart failure combine, with EF 45-50%, type 2 diabetes mellitus, hypertension, and obesity, as well as anxiety disorder who presents to the emergency room after he saw his urologist and returned goods receiving clerk, Dr. Katz and Dr. Barth respectively. They wanted him to come in due to his abnormal labs. He had ureteral stents placed on the and 10 of January and was sent home on Vaughn catheter. He has no history of fevers, chills, shortness of breath and he was told to come into the hospital for possible suprapubic catheter placement and urinary tract infection and/or obstruction. PAST MEDICAL HISTORY: As stated in the HPI. PAST SURGICAL HISTORY: Left BKA. FAMILY HISTORY: History of diabetes and hypertension in his family. SOCIAL HISTORY: He is a former smoker and he quit 2-1/2 years ago. Does not drink alcohol or use illicit drugs. ALLERGIES: SULFA MEDICATIONS. REVIEW OF SYSTEMS: A 12-point review of systems conducted and negative except as stated in the HPI. PHYSICAL EXAMINATION: VITAL SIGNS: Initial vital signs: Blood pressure on arrival 104/92, respiratory rate 16, oxygen saturation 98% on room air, temperature 98.1 degree Fahrenheit. GENERAL: Not in acute distress, sitting comfortably in bed. HEENT: Normocephalic, atraumatic. Not pale, anicteric. Moist mucous membranes. PERRLA, EOMI. NECK: Supple, full range of movement. No JVD. RESPIRATORY: Vesicular breath sounds bilaterally. No wheezes, rales, or rhonchi. CARDIOVASCULAR: S1, S2, only regular rate and rhythm. No murmurs, rubs, or gallops. ABDOMEN: Soft, nontender, nondistended. No hepatosplenomegaly. GENITOURINARY: Vaughn catheter in place, draining cloudy urine. NEUROLOGIC: Alert and well oriented to time, place, and person. No focal deficit. MUSCULOSKELETAL: Left BKA. Right lower extremity is cool with 1+ pulse. PSYCHIATRIC: Normal mood and affect. SKIN: No rashes or lesions. Warm and dry. LABORATORY DATA: Significant labs include sodium of 128, potassium of 3.2, BUN of 69, creatinine of 1.88, glucose was 524. CBC showed anemia with hemoglobin of 7.9, white count of 10.1, platelet count 385. Urinalysis showed turbid yellow urine with increased glucose, moderate amount of blood, large number of leukocyte esterase, increased rbc's and wbc's with bacteria as well. ASSESSMENT AND PLAN: 1. Complicated Urinary tract infection: Patient is clinically stable. Urology service has placed a Vaughn catheter. He has been started on IV cefepime and Vancomycin. Urology will receive tomorrow for possible suprapubic catheter placements. Infectious Disease also consulted as well. Follow up urine cultures. Due to likely surgical procedure, we will hold aspirin and Plavix. 2. Diabetes mellitus. It is uncontrolled, but improved with administration of sliding scale insulin. We will resume his home regimen, but slightly at a reduced dose until we can monitor his blood sugar at q.a.c. and at bedtime. Last A1c was 10.9 in 12/07/2017. 3. Congestive heart failure: He has a combined diastolic and systolic dysfunction, but is not in acute exacerbation. We will resume home medications once confirmed. 4. Chronic kidney disease: We will monitor his renal function and avoid nephrotoxic medications. 4. Hypertension: Blood pressure is uncontrolled. Resume home regimen and placed on p.r.n. hydralazine for systolic blood pressure greater than 180. 5. Hyperlipidemia: We will continue on atorvastatin. 6. He also has hypomagnesemia and hypokalemia, these are being repeated. Deep venous thrombosis prophylaxis with subcutaneous heparin. CODE STATUS: FULL CODE. MTDD
[2018-01-22 05:47] LABS: #Eosinphils 0.4 thou/uL (0.0-0.7); #Lymphocytes 2.4 thou/uL (1.20-3.40); #Neutrophils 6.1 thou/uL (1.40-6.50); %Basophils 0.1 % (0.0-1.0); %Eosinophils 4.4 % (0.0-10.0); %Monocytes 9.7 % (0.0-10.0); %Neutrophils 61.9 % (42.0-75.0); Mean Corpuscular HGB CONC 33.9 g/dL (32.0-36.0); Mean Corpuscular Hemoglobin 29.4 pg (27.0-31.0); Mean Corpuscular Volume 86.9 fl (80.0-94.0); Mean Platelet Volume 7.5 fL (7.4-10.4); Platelet Count 359 thou/uL (130-400); RBC Distribution Width 14.2 % (11.5-14.5); Red Blood Cell (RBC) Count 2.37 mill/uL (4.70-6.10); White Blood Cell (WBC) Count 9.9 thou/uL (4.8-10.8)
[2018-01-22 05:56] LABS: Anion Gap 11 mmol/L (10-20); BUN (Urea Nitrogen) 12 mg/dL (8.4-25.7); Calc. Creatinine Clearance 68 mL/min (70-130); Calcium 7.6 mg/dL (7.8-10.44); Carbon Dioxide 24 mmol/L (23-31); Chloride 101 mmol/L (98-107); Estimated GFR-MDRD 54; Glucose 343 mg/dL (80-115); Sodium 133 mmol/L (136-145)
[2018-01-22] MEDS ORDERED: Cefepime 1 GM in Sodium Chloride 0.9% 100 ML IVPB SCH (06:00)
[2018-01-22 06:10] LABS: Potassium 2.8 mmol/L (3.5-5.1)
[2018-01-22] MEDS: HumaLOG 300 UNITS/3 ML VIAL SC PRN ×3 (06:30→16:24)
[2018-01-22] MEDS ORDERED: Cefepime 1 GM, Admixture Fee 1 EACH in Sterile Water 10 ML SLOW IVP SCH (08:00)
[2018-01-22] MEDS ORDERED: Potassium Chloride 20 MEQ TAB PO SCH ×2 (08:30→12:15)
[2018-01-22] MEDS ORDERED: Docusate 100 MG CAP PO SCH (09:00)
[2018-01-22] MEDS: Vancomycin HCl 500 MG in Sodium Chloride 0.9% 100 ML IVPB SCH ×2 (10:21→21:26)
[2018-01-22] MEDS: Potassium Chloride 20 MEQ TAB PO SCH ×2 (10:21→17:50)
[2018-01-22] MEDS: Tamsulosin HCl 0.4 MG CAP PO SCH (10:22)
[2018-01-22] MEDS: Docusate 100 MG CAP PO SCH (10:22)
[2018-01-22] MEDS: Magnesium Oxide 400 MG TAB PO SCH ×2 (10:22→21:27)
[2018-01-22] MEDS: Lactinex Tablet PO SCH (10:22)
[2018-01-22] MEDS: Carvedilol 25 MG TAB PO SCH ×2 (10:22→17:50)
[2018-01-22] MEDS: Finasteride 5 MG TAB PO SCH (10:26)
--- NOTE | 2018-01-22 11:03 | ULT ---
BLADDER ULTRASOUND: Date: 01/22/18 INDICATION: UTI. Assess for obstruction. FINDINGS: Vaughn catheter was inserted. Vaughn catheter was clamped x1 hour prior to examination. Images show mil dly distended bladder. The Vaughn catheter bulb is identified. Both ureteral jets are identified on this exam. The pre-void volume is recorded at 46 mL. Vaughn was then unclamped x5 minutes and post-void volume was then measured at 58 mL. The mildly distended bladder appears unremarkable. IMPRESSION: Both ureteral jets are identified. Bladder volume does not significantly change after unclamping the Vaughn catheter. POS: [facility]
[2018-01-22] MEDS: Insulin NPH/Reg Insulin Hm 300 UNITS/3 ML VIAL SC SCH ×2 (11:13→16:22)
[2018-01-22] MEDS: Potassium Chloride 20 MEQ in Premix Bag 1 BAG IVPB SCH ×2 (11:51→12:27)
[2018-01-22] MEDS: traMADol HCl 50 MG TAB PO PRN (12:02)
--- NOTE | 2018-01-22 13:37 | PDOC.PN ---
- Subjective Encounter Start Date: 01/22/18 Encounter Start Time: 13:36 Subjective: no new complainst. no abd pain.no dysuria/hematuria - Objective Resuscitation Status: Resuscitation Status FULL:Full Resuscitation MAR Reviewed: Yes Vital Signs & Weight: Vital Signs (12 hours) Temp Pulse Resp BP BP Pulse Ox 01/22/18 12:19 97.5 F L 70 16 155/70 H 01/22/18 08:00 98.7 F 72 16 92 L 01/22/18 07:59 98.7 F 72 16 143/65 H 92 L 01/22/18 04:00 97.5 F L 82 16 121/54 L 95 01/22/18 02:17 178/77 H Weight Admit Weight 185 lb 7 oz Weight 185 lb 7 oz I&O: 01/21/18 01/22/18 01/23/18 06:59 06:59 06:59 Output Total 2100 Balance -2100 Result Diagrams: 01/22/18 04:13 01/22/18 04:13 Additional Labs: Accuchecks 01/22/18 01/22/18 01/22/18 11:46 04:42 00:33 POC Glucose 184 H 305 H 427 H Laboratory Tests 12/29/17 01/21/18 01/21/18 05:55 11:19 16:23 Sodium 128 L Creatinine 1.07 1.91 H 1.88 H Lactic Acid 01/21/18 01/22/18 16:23 04:13 Sodium 133 L Creatinine 1.34 H Lactic Acid 4.0 H Phys Exam - Physical Examination Constitutional: NAD HEENT: PERRLA, moist MMs, sclera anicteric, oral pharynx no lesions Neck: no nodes, no JVD, supple, full ROM Respiratory: no wheezing, no rales, no rhonchi, clear to auscultation bilateral Cardiovascular: RRR, no significant murmur, no rub, gallop Gastrointestinal: soft, non-tender, no distention, positive bowel sounds Musculoskeletal: no edema, pulses present Neurological: non-focal, normal sensation, moves all 4 limbs Psychiatric: normal affect, A&O x 3 Skin: no rash Dx/Plan (1) Complicated UTI (urinary tract infection) Code(s): N39.0 - URINARY TRACT INFECTION, SITE NOT SPECIFIED Status: Acute Comment: POA/ hx of peptostrep, MSSA in past. on vanco, adding Zosyn, follow cultures.urology following. (2) NISH (acute kidney injury) Code(s): N17.9 - ACUTE KIDNEY FAILURE, UNSPECIFIED Status: Resolved Comment : Improving. monitor. (3) Urinary retention Code(s): R33.9 - RETENTION OF URINE, UNSPECIFIED Status: Chronic Comment: Suprapubic catheter to be done on Wednesday (4) Hypokalemia Code(s): E87.6 - HYPOKALEMIA Status: Acute (5) Anemia of chronic disease Code(s): D63.8 - ANEMIA IN OTHER CHRONIC DISEASES CLASSIFIED ELSEWHERE Status : Acute (6) CKD (chronic kidney disease) stage 2, GFR 60-89 ml/min Code(s): N18.2 - CHRONIC KIDNEY DISEASE, STAGE 2 (MILD) Status: Chronic (7) Chronic systolic CHF (congestive heart failure) Code(s): I50.22 - CHRONIC SYSTOLIC (CONGESTIVE) HEART FAILURE Status: Chronic (8) DM2 (diabetes mellitus, type 2) Status: Chronic Qualifiers: Diabetes mellitus reimbursement director insulin use: without correction use Diabetes mellitus complication status: with neurologic complications Diabetes mellitus complication detail: with polyneuropathy Qualified Code(s): E11.42 - Type 2 diabetes mellitus with diabetic polyneuropathy (9) Hypertension Code(s): I10 - ESSENTIAL (PRIMARY) HYPERTENSION Status: Chronic Qualifiers: Hypertension type: essential hypertension Qualified Code(s): I10 - Essential (primary) hypertension (10) PVD (peripheral vascular disease) with claudication Code(s): I73.9 - PERIPHERAL VASCULAR DISEASE, UNSPECIFIED Status: Chronic (11) History of left below knee amputation Code(s): Z89.512 - ACQUIRED ABSENCE OF LEFT LEG BELOW KNEE Status: Chronic - Plan continue antibiotics, PT/OT, DVT proph w/SCDs cont Vaughn.cont IV Abx. follow Cx results -: suprapubic catheter on Wednesday per urology. -: replace and recheck potassium.check mag -: ASa,plavix on hold in anticipation of Sx on Wednesday. -: transfuse 1 unit PRBC for anemia .recheck in am again * . Review of Systems - Review of Systems Constitutional: negative: fever, chills, sweats, weakness, malaise, other Respiratory: negative: Cough, Dry, Shortness of Breath, Hemoptysis, SOB with Excertion, Pleuritic Pain, Sputum, Wheezing Cardiovascular: negative: chest pain, palpitations, orthopnea, paroxysmal nocturnal dyspnea, edema, light headedness, other Gastrointestinal: negative: Nausea, Vomiting, Abdominal Pain, Diarrhea, Constipation, Melena, Hematochezia, Other Genitourinary: negative: Dysuria, Frequency, Incontinence, Hematuria, Retention , Other Musculoskeletal: negative: Neck Pain, Shoulder Pain, Arm Pain, Back Pain, Hand Pain, Leg Pain, Foot Pain, Other Skin: negative: Rash, Lesions, Kt, Bruising, Other Neurological: negative: Weakness, Numbness, Incoordination, Change in Speech, Confusion, Seizures, Other - Medications/Allergies Allergies/Adverse Reactions: Allergies Allergy/AdvReac Type Severity Reaction Status Date / Time Sulfa (Sulfonamide Allergy Severe Anaphylaxis Verified 01/21/18 22:32 Antibiotics) Medications: Current Medications Acetaminophen (Tylenol) 650 mg PO Q4H PRN PRN Reason: Headache/Fever or Pain Acidophilus (Floranex) 1 tab PO DAILY [facility] Last Admin: 01/22/18 10:22 Dose: 1 tab Alprazolam (Xanax) 0.5 mg PO TID PRN PRN Reason: Anxiety Atorvastatin Calcium (Lipitor) 40 mg PO HS [facility] Last Admin: 01/21/18 23:42 Dose: 40 mg Carvedilol (Coreg) 25 mg PO BID-[facility] Last Admin: 01/22/18 10:22 Dose: 25 mg Dextrose/Water (Dextrose 50%) 25 gm SLOW IVP PRN PRN PRN Reason: Hypoglycemia Docusate Sodium (Colace) 100 mg PO DAILY [facility] Last Admin: 01/22/18 10:22 Dose: 100 mg Finasteride (Proscar) 5 mg PO DAILY [facility] Last Admin: 01/22/18 10:26 Dose: 5 mg Furosemide (Lasix) 20 mg PO DAILY PRN PRN Reason: fluid retention Glucagon (Glucagon) 1 mg IM PRN PRN PRN Reason: Hypoglycemia Hydralazine HCl (Apresoline) 10 mg SLOW IVP Q4H PRN PRN Reason: Blood Pressure Dextrose/Water (D5w) 1,000 mls @ 0 mls/hr IV .Q0M PRN; As Directed PRN Reason: Hypoglycemia Cefepime HCl 1 gm/Miscellaneous Medication 1 each/ Sterile Water 10 mls @ 120 mls/hr SLOW IVP [facility] Last Admin: 01/22/18 10:21 Dose: 10 mls Vancomycin HCl 500 mg/ Sodium (Chloride) 100 mls @ 100 mls/hr IVPB [facility] Last Admin: 01/22/18 10:21 Dose: 100 mls Insulin Human Isoph/Insulin Regular (Humulin 70/30) 10 units SC BID-AC [facility] Last Admin: 01/22/18 11:13 Dose: 10 unit Insulin Human Lispro (Humalog) 0 units SC .MODERATE SLIDING SC PRN PRN Reason: Moderate Correctional Scale Last Admin: 01/22/18 13:22 Dose: 2 unit Magnesium Hydroxide (Milk Of Magnesium) 30 ml PO DAILYPRN PRN PRN Reason: Constipation Magnesium Oxide (Magnesium Oxide) 400 mg PO BID [facility] Last Admin: 01/22/18 10:22 Dose: 400 mg Miscellaneous Medication (Pharmacy To Dose) 1 each IVPB ONE PRN PRN Reason: Pharmacy to dose Stop: 02/20/18 20:49 Ondansetron HCl (Zofran Odt) 4 mg PO Q6H PRN PRN Reason: Nausea/Vomiting Potassium Chloride (K-Dur) 20 meq PO BID-[facility] Last Admin: 01/22/18 10:21 Dose: Not Given Potassium Chloride (K-Dur) 40 meq PO ONE [facility] Stop: 01/22/18 14:00 Last Admin: 01/22/18 13:21 Dose: 40 meq Promethazine HCl (Phenergan) 25 mg PO DAILY PRN PRN Reason: Nausea Ranolazine (Ranexa) 500 mg PO BID [facility] Last Admin: 01/22/18 10:22 Dose: 500 mg Sodium Chloride (Flush - Normal Saline) 10 ml IVF Q12HR [facility] Last Admin: 01/22/18 10:23 Dose: 10 ml Sodium Chloride (Flush - Normal Saline) 10 ml IVF PRN PRN PRN Reason: Saline Flush Tamsulosin HCl (Flomax) 0.4 mg PO QAM [facility] Last Admin: 01/22/18 10:22 Dose: 0.4 mg Tramadol HCl (Ultram) 50 mg PO BID PRN PRN Reason: Pain Last Admin: 01/22/18 12:02 Dose: 50 mg
[2018-01-22] MEDS ORDERED: Magnesium Sulfate 2 GM in Sodium Chloride 0.9% 100 ML IVPB SCH (13:45)
--- NOTE | 2018-01-22 13:49 | PRG ---
DATE OF SERVICE: 01/22/[address] Katz's patient, who I am covering for over the weekend. SUBJECTIVE: The patient has no complaints and is otherwise feeling okay. OBJECTIVE: His vitals remained stable. On exam, the catheter appeared to be secured too far down, so to ensure that it was not stuck in the prostate, I pushed it back in. This elicited a significant pain reaction in the patient, and therefore probably was stuck in the prostate before my manipulation. I resecured it, and he tolerated this okay. It was draining yellow urine. LABORATORY DATA: His hemoglobin and hematocrit went down from 7.9 to 7.0 and 23.2 to 20.6. His potassium is low and being replaced. His creatinine is improved to 1.34. His urinalysis was clearly infected and already growing Klebsiella or Enterobacter, sensitivities pending. ASSESSMENT AND PLAN: We have a 62-year-old male with a urinary tract infection , receiving vancomycin and cefepime--awaiting specific sensitivities. Fortunately, he was not bleeding in the urine at this time and his anticoagulation has been held appropriately. I added finasteride just to decrease any chances from a prostatic bleed, especially if the anticipation is to get him back on anticoagulative therapy in the near future. Dr. Katz is planning on the suprapubic tube on Wednesday and will review this with the patient beforehand. MIGUELITO
[2018-01-22] MEDS ORDERED: Magnesium 2 GM/NS 0.9% 100 ML 2 GM in Premix Bag 1 BAG IVPB SCH (14:00)
[2018-01-22] MEDS: Atorvastatin Calcium 40 MG TAB PO SCH (21:27)
[2018-01-22] MEDS ORDERED: Meropenem 1 GM in Sodium Chloride 0.9% 100 ML IVPB SCH (22:00)
[2018-01-22] MEDS: MEROPENEM 1 GM/50 ML 1 GM in Premix Bag 1 BAG IVPB SCH (23:06)
--- NOTE | 2018-01-23 00:30 | CON ---
DATE OF CONSULTATION: 01/22/2018 REASON FOR CONSULTATION: Urinary tract complications with cystitis. HISTORY OF PRESENT ILLNESS: A 62-year-old whom I had seen in the recent past, who has a history of t ype 2 diabetes and stage 3 renal insufficiency with a left foot complications which ended up in left BKA as well as nephrolithiasis treated with lithotripsy, whom I had seen in December with abnormal urina lysis following lithotripsy. The patient had a cystoscopic procedure eventually underwent lithotrips y of bladder stone. The culture from the kidney aspirate during lithotripsy showed a Staphylococcus epidermidis. He was discharged on linezolid and he was readmitted after Dr. Barth identified abnormal findings in the lab results with increase in creatinine and concern with the fact the patient was no t able to void. He was noted to have high residual urine in the bladder with 800 mL and decision was made to place a suprapubic catheter. Urine was highly concentrated and abnormal urinalysis is noted , therefore, at least temporary administration of antimicrobials was felt to be indicated before and after the procedure. Currently, he appears to be in no distress, has a Vaughn catheter in place which is draining cloudy urine. He has no headaches, no change in visual symptoms, sore throat, odynophag ia, dysphagia, no dyspnea or chest pain, no abdominal pain, no back pain, and no appendicular structu re symptoms. PAST MEDICAL HISTORY: Type 2 diabetes, CKD stage 3, BKA left lower extremity after complications of infection, coronary artery disease with prior stenting, PVD with iliac artery stenting, CHF, hyperten thom, lithotripsy for management of nephrolithiasis and bladder. SOCIAL HISTORY: Never smoker. He lives in [place] with . FAMILY HISTORY: Diabetes. CURRENT MEDICATIONS: Include Floranex, Xanax, Lipitor, Coreg, cefepime, finasteride, furosemide, mag nesium, and vancomycin. PHYSICAL EXAMINATION: VITAL SIGNS: T-max of 98, blood pressure 150/70, pulse 70, respirations 16, and O2 sat 92%. GENERAL: Appears chronically ill, but in no acute distress. Peripheral IV access. He has a Vaughn c atheter in place. No lymphadenopathy. HEENT: Ocular movements are conjugate. Oral cavity with no [place] teeth remaining. Moist mucosa. No lesions. NECK: Supple, no jugular vein distention, no thyromegaly. LUNGS: Symmetric, clear breath sounds. HEART: S1, S2, regular rate. No S3 or S4. ABDOMEN: Soft, not distended or tender. No ascites. No bladder distention at this time. EXTREMITIES: left BKA site appears normal with a healed incision in the right side with diminished p ulses in dorsalis pedis and posterior tibialis. He moves extremities without limitations. NEUROLOGIC: His cognitive function appears to be intact. LABORATORY DATA: Urinalysis with greater than 50 wbc's. White cell count 9.9, hemoglobin 7, platele ts 359. Blood gas venous sample with a base excess of 1.8, pCO2 of 46, pO2 of 15. Chemistry with so dium of 133, creatinine 1.34, which is improved from day before yesterday which was 1.9. Bilirubin t otal was 0.2, AST 7 and ALT 7. Microbiology presumptive klebsiella/enterobacter with pending suscept ibilities. No blood cultures were submitted. Bladder ultrasound done on admission with both uretera l jets identified, bladder volume did not change after unclamping of the Vaughn catheter. The patient has pathology specimens from the lithotripsy which showed no evidence of cancer. ASSESSMENT: Type 2 diabetes, coronary artery disease and diabetic neuropathy with neurogenic bladder , urinary retention, lithotripsy for management of the nephrolithiasis and bladder lithiasis associat ed with neurogenic bladder, cystitis as well, but without evidence of an invasive urinary tract infec tion. At this time, we will wait for the final identification of the organism, it could represent an ESBL organism, in that case might have to switch to carbapenem at least for a brief period of time. Treatment to be continued until after the suprapubic placement procedure. I do not think he will re quire long-term treatment with antimicrobial therapy once the suprapubic is safely in place. After t he placement of suprapubic catheter, it will be important to maintain proper flow to avoid obstructio n and complications related to SP tube placement.
[2018-01-23] MEDS: traMADol HCl 50 MG TAB PO PRN ×2 (01:21→14:59)
[2018-01-23] MEDS: MEROPENEM 1 GM/50 ML 1 GM in Premix Bag 1 BAG IVPB SCH ×2 (05:27→14:59)
[2018-01-23 05:41] LABS: #Basophils 0.1 thou/uL (0.0-0.2); #Eosinphils 0.5 thou/uL (0.0-0.7); #Lymphocytes 2.4 thou/uL (1.20-3.40); #Monocytes 0.8 thou/uL (0.11-0.59); #Neutrophils 5.9 thou/uL (1.40-6.50); %Basophils 1.2 % (0.0-1.0); %Eosinophils 4.9 % (0.0-10.0); %Lymphocytes 24.8 % (21.0-51.0); %Monocytes 8.3 % (0.0-10.0); %Neutrophils 60.8 % (42.0-75.0); Hemoglobin 7.6 g/dL (14.0-18.0); Mean Corpuscular HGB CONC 33.8 g/dL (32.0-36.0); Mean Corpuscular Hemoglobin 29.6 pg (27.0-31.0); Mean Corpuscular Volume 87.6 fl (80.0-94.0); Mean Platelet Volume 7.4 fL (7.4-10.4); Platelet Count 430 thou/uL (130-400); RBC Distribution Width 14.8 % (11.5-14.5); Red Blood Cell (RBC) Count 2.56 mill/uL (4.70-6.10); White Blood Cell (WBC) Count 9.7 thou/uL (4.8-10.8)
[2018-01-23] MEDS: HumaLOG 300 UNITS/3 ML VIAL SC PRN ×2 (05:50→17:41)
[2018-01-23 05:54] LABS: Anion Gap 8 mmol/L (10-20); BUN (Urea Nitrogen) 12 mg/dL (8.4-25.7); Calc. Creatinine Clearance 77 mL/min (70-130); Calcium 7.6 mg/dL (7.8-10.44); Carbon Dioxide 23 mmol/L (23-31); Chloride 101 mmol/L (98-107); Estimated GFR-MDRD 62; Glucose 308 mg/dL (80-115); Potassium 3.4 mmol/L (3.5-5.1); Sodium 129 mmol/L (136-145)
[2018-01-23] MEDS: Insulin NPH/Reg Insulin Hm 300 UNITS/3 ML VIAL SC SCH ×2 (08:35→17:41)
[2018-01-23] MEDS: Potassium Chloride 20 MEQ TAB PO SCH ×2 (08:36→17:41)
[2018-01-23] MEDS: Finasteride 5 MG TAB PO SCH (08:36)
[2018-01-23] MEDS: Docusate 100 MG CAP PO SCH (08:36)
[2018-01-23] MEDS: Magnesium Oxide 400 MG TAB PO SCH ×2 (08:36→21:11)
[2018-01-23] MEDS: Lactinex Tablet PO SCH (08:36)
[2018-01-23] MEDS: Carvedilol 25 MG TAB PO SCH ×2 (08:36→17:41)
[2018-01-23] MEDS: Tamsulosin HCl 0.4 MG CAP PO SCH (08:36)
[2018-01-23] MEDS ORDERED: Ondansetron HCl/PF 4 MG/2 ML Vial IVP PRN (11:44)
--- NOTE | 2018-01-23 14:32 | PRG ---
DATE OF SERVICE: 01/23/2018 SUBJECTIVE: The patient has done well overnight. He has had no further complications or pain. He d id have some nausea that has since passed. OBJECTIVE: VITAL SIGNS: His vitals have been stable. He has been afebrile. The catheter is still in place draining yellow urine. It is secured appropriately and does not appea r to be on tension. LABORATORY DATA: His H&H is stable at 7.6 and 22.5. His creatinine is 1.19 and he is on antibiotics per Dr. Yip. ASSESSMENT AND PLAN: In assessment, we have a 62-year-old male admitted with significant urinary tra ct infection on IV antibiotics, anticipating an SP tube tomorrow per Dr. Katz and he will handle th at accordingly.
--- NOTE | 2018-01-23 14:40 | PDOC.PN ---
- Subjective Encounter Start Date: 01/23/18 Encounter Start Time: 14:38 Subjective: feels nausea.no AP/diarrhea/fever/chills - Objective Resuscitation Status: Resuscitation Status FULL:Full Resuscitation MAR Reviewed: Yes Vital Signs & Weight: Vital Signs (12 hours) Temp Pulse Resp BP Pulse Ox 01/23/18 08:00 98.3 F 74 16 94 L 01/23/18 07:57 98.3 F 74 16 129/74 94 L Weight Admit Weight 185 lb 7 oz Weight 185 lb 7 oz I&O: 01/22/18 01/23/18 01/24/18 06:59 06:59 06:59 Intake Total 2520 240 Output Total 2100 3100 Balance -2100 -580 240 Result Diagrams: 01/23/18 04:41 01/23/18 04:41 Additional Labs: Accuchecks 01/23/18 01/23/18 01/22/18 11:29 05:44 16:17 POC Glucose 339 H 327 H 318 H Microbiology 01/21/18 15:50 Urine voided Urine Culture - Preliminary Klebsiella pneumoniae ssp pneu Pseudomonas aeruginosa Laboratory Tests 01/21/18 01/22/18 01/23/18 16:23 04:13 04:41 Sodium 128 L 133 L 129 L Creatinine 1.88 H 1.34 H 1.19 Phys Exam - Physical Examination Constitutional: NAD dry heaving HEENT: PERRLA, moist MMs, sclera anicteric, oral pharynx no lesions Neck: no JVD Respiratory: no wheezing, no rales, no rhonchi, clear to auscultation bilateral Cardiovascular: RRR, no significant murmur Gastrointestinal: soft, non-tender, no distention, positive bowel sounds Musculoskeletal: no edema, pulses present Neurological: non-focal, normal sensation, moves all 4 limbs Psychiatric: normal affect, A&O x 3 Skin: no rash Dx/Plan (1) Complicated UTI (urinary tract infection) Code(s): N39.0 - URINARY TRACT INFECTION, SITE NOT SPECIFIED Status: Acute Comment: POA/ hx of peptostrep, MSSA in past. on vanco & meropenam per ID., follow cultures.urology following. (2) Hypokalemia Code(s): E87.6 - HYPOKALEMIA Status: Acute (3) NISH (acute kidney injury) Code(s): N17.9 - ACUTE KIDNEY FAILURE, UNSPECIFIED Status: Resolved Comment : Improved. monitor. (4) Urinary retention Code(s): R33.9 - RETENTION OF URINE, UNSPECIFIED Status: Chronic Comment: Suprapubic catheter to be done on Wednesday (5) Hyponatremia Code(s): E87.1 - HYPO-OSMOLALITY AND HYPONATREMIA Status: Acute Comment: seems chronic (6) History of left below knee amputation Code(s): Z89.512 - ACQUIRED ABSENCE OF LEFT LEG BELOW KNEE Status: Chronic (7) Anemia of chronic disease Code(s): D63.8 - ANEMIA IN OTHER CHRONIC DISEASES CLASSIFIED ELSEWHERE Status : Acute (8) CKD (chronic kidney disease) stage 2, GFR 60-89 ml/min Code(s): N18.2 - CHRONIC KIDNEY DISEASE, STAGE 2 (MILD) Status: Chronic (9) Chronic systolic CHF (congestive heart failure) Code(s): I50.22 - CHRONIC SYSTOLIC (CONGESTIVE) HEART FAILURE Status: Chronic Comment: Cont home meds of Ranexa,Statin,BB. ASA and plavix on hold for surgery (10) DM2 (diabetes mellitus, type 2) Status: Chronic Qualifiers: Diabetes mellitus intermediate designer insulin use: without prison use Diabetes mellitus complication status: with neurologic complications Diabetes mellitus complication detail: with polyneuropathy Qualified Code(s): E11.42 - Type 2 diabetes mellitus with diabetic polyneuropathy Comment: Insulin SI and 70/30.Accuchecks achs (11) Hypertension Code(s): I10 - ESSENTIAL (PRIMARY) HYPERTENSION Status: Chronic Qualifiers: Hypertension type: essential hypertension Qualified Code(s): I10 - Essential (primary) hypertension (12) PVD (peripheral vascular disease) with claudication Code(s): I73.9 - PERIPHERAL VASCULAR DISEASE, UNSPECIFIED Status: Chronic - Plan price catheter, continue antibiotics, DVT proph w/SCDs cont IV ABx.following cultures.klebsiella and pseudomonas so far -: urology to place SP catheter tomorrow.cont Finnsteride for now -: replace and recheck potassium prn -: add p[rn zorobert. -: add NS for low sodium and monitor * . Review of Systems - Review of Systems Constitutional: negative: fever, chills, sweats, weakness, malaise, other Respiratory: negative: Cough, Dry, Shortness of Breath, Hemoptysis, SOB with Excertion, Pleuritic Pain, Sputum, Wheezing Cardiovascular: negative: chest pain, palpitations, orthopnea, paroxysmal nocturnal dyspnea, edema, light headedness, other Gastrointestinal: Nausea Genitourinary: negative: Dysuria, Frequency, Incontinence, Hematuria, Retention , Other Musculoskeletal: negative: Neck Pain, Shoulder Pain, Arm Pain, Back Pain, Hand Pain, Leg Pain, Foot Pain, Other Skin: negative: Rash, Lesions, Kt, Bruising, Other Neurological: negative: Weakness, Numbness, Incoordination, Change in Speech, Confusion, Seizures, Other - Medications/Allergies Allergies/Adverse Reactions: Allergies Allergy/AdvReac Type Severity Reaction Status Date / Time Sulfa (Sulfonamide Allergy Severe Anaphylaxis Verified 01/21/18 22:32 Antibiotics) Medications: Current Medications Acetaminophen (Tylenol) 650 mg PO Q4H PRN PRN Reason: Headache/Fever or Pain Acidophilus (Floranex) 1 tab PO DAILY [facility] Last Admin: 01/23/18 08:36 Dose: 1 tab Alprazolam (Xanax) 0.5 mg PO TID PRN PRN Reason: Anxiety Atorvastatin Calcium (Lipitor) 40 mg PO HS [facility] Last Admin: 01/22/18 21:27 Dose: 40 mg Carvedilol (Coreg) 25 mg PO BID-[facility] Last Admin: 01/23/18 08:36 Dose: 25 mg Dextrose/Water (Dextrose 50%) 25 gm SLOW IVP PRN PRN PRN Reason: Hypoglycemia Docusate Sodium (Colace) 100 mg PO DAILY [facility] Last Admin: 01/23/18 08:36 Dose: 100 mg Finasteride (Proscar) 5 mg PO DAILY [facility] Last Admin: 01/23/18 08:36 Dose: 5 mg Furosemide (Lasix) 20 mg PO DAILY PRN PRN Reason: fluid retention Glucagon (Glucagon) 1 mg IM PRN PRN PRN Reason: Hypoglycemia Hydralazine HCl (Apresoline) 10 mg SLOW IVP Q4H PRN PRN Reason: Blood Pressure Dextrose/Water (D5w) 1,000 mls @ 0 mls/hr IV .Q0M PRN; As Directed PRN Reason: Hypoglycemia Meropenem 1 gm/ Device 50 mls @ 100 mls/hr IVPB Q8HR [facility] Last Admin: 01/23/18 05:27 Dose: 50 mls Insulin Human Isoph/Insulin Regular (Humulin 70/30) 10 units SC BID-[facility] Last Admin: 01/23/18 08:35 Dose: 10 unit Insulin Human Lispro (Humalog) 0 units SC .MODERATE SLIDING SC PRN PRN Reason: Moderate Correctional Scale Last Admin: 01/23/18 05:50 Dose: 8 unit Magnesium Hydroxide (Milk Of Magnesium) 30 ml PO DAILYPRN PRN PRN Reason: Constipation Magnesium Oxide (Magnesium Oxide) 400 mg PO BID [facility] Last Admin: 01/23/18 08:36 Dose: 400 mg Ondansetron HCl (Zofran Odt) 4 mg PO Q6H PRN PRN Reason: Nausea/Vomiting Ondansetron HCl (Zofran) 4 mg IVP Q6H PRN PRN Reason: Nausea/Vomiting Last Admin: 01/23/18 12:22 Dose: 4 mg Potassium Chloride (K-Dur) 20 meq PO BID-[facility] Last Admin: 01/23/18 08:36 Dose: 20 meq Promethazine HCl (Phenergan) 25 mg PO DAILY PRN PRN Reason: Nausea Ranolazine (Ranexa) 500 mg PO BID [facility] Last Admin: 01/23/18 08:36 Dose: 500 mg Sodium Chloride (Flush - Normal Saline) 10 ml IVF Q12HR [facility] Last Admin: 01/23/18 12:23 Dose: 10 ml Sodium Chloride (Flush - Normal Saline) 10 ml IVF PRN PRN PRN Reason: Saline Flush Tamsulosin HCl (Flomax) 0.4 mg PO QAM [facility] Last Admin: 01/23/18 08:36 Dose: 0.4 mg Tramadol HCl (Ultram) 50 mg PO BID PRN PRN Reason: Pain Last Admin: 01/23/18 01:21 Dose: 50 mg
--- NOTE | 2018-01-23 14:56 | PRG ---
DATE OF SERVICE: 01/23/2018 SUBJECTIVE: Does not have any complaints today. No abdominal pain, no chest pain. OBJECTIVE: VITAL SIGNS: Temperature is normal. Other vital signs are within normal limits. LUNGS: Clear. HEART: S1, S2, regular rate. ABDOMEN: Soft, not distended. GENITOURINARY: Vaughn catheter in place. I's and O's did negative over the past few days. MICROBIOLOGY: Microbiology with klebsiella pneumoniae and Pseudomonas aeruginosa. Klebsiella pneumo niae with a broad susceptibility profile. Pseudomonas pending susceptibility studies. ASSESSMENT AND DISCUSSION: Type 2 diabetes and coronary artery disease with diabetic neuropathy, evelin rogenic bladder with urinary retention, previous lithotripsy for management of nephrolithiasis and bl adder lithiasis associated with neurogenic bladder and cystitis. At this time, the patient to receiv e a suprapubic catheter placement. Once we have the final identification of the Pseudomonas suscepti bilities, then we could transition to hopefully oral antimicrobial therapy for few more days for disc harge planning.
[2018-01-23] MEDS: Sodium Chloride 0.9% 1,000 ML IV SCH (15:39)
[2018-01-23] MEDS: Atorvastatin Calcium 40 MG TAB PO SCH (21:11)
[2018-01-23] MEDS: ALPRAZolam 0.5 MG TAB PO PRN (22:31)
[2018-01-24] MEDS: MEROPENEM 1 GM/50 ML 1 GM in Premix Bag 1 BAG IVPB SCH ×2 (00:06→06:01)
[2018-01-24] MEDS: Sodium Chloride 0.9% 1,000 ML IV SCH ×2 (06:01→21:02)
[2018-01-24] MEDS: Carvedilol 25 MG TAB PO SCH ×2 (08:48→17:15)
[2018-01-24] MEDS: Magnesium Oxide 400 MG TAB PO SCH ×2 (09:00→21:01)
[2018-01-24] MEDS: Potassium Chloride 20 MEQ TAB PO SCH ×2 (09:00→17:21)
[2018-01-24 09:25] LABS: Hemoglobin 7.8 g/dL (14.0-18.0)
[2018-01-24 09:45] LABS: Anion Gap 10 mmol/L (10-20); BUN (Urea Nitrogen) 10 mg/dL (8.4-25.7); Calc. Creatinine Clearance 74 mL/min (70-130); Calcium 8.2 mg/dL (7.8-10.44); Carbon Dioxide 25 mmol/L (23-31); Chloride 104 mmol/L (98-107); Estimated GFR-MDRD 60; Glucose 239 mg/dL (80-115); Potassium 4.2 mmol/L (3.5-5.1); Sodium 135 mmol/L (136-145)
[2018-01-24] MEDS: Insulin NPH/Reg Insulin Hm 300 UNITS/3 ML VIAL SC SCH ×2 (10:19→17:17)
[2018-01-24] MEDS ORDERED: PHENYLEPHRINE-NS 100 MCG/ML 10 ML SYRINGE ONE (12:17)
[2018-01-24] MEDS ORDERED: PROPOFOL 200 MG/20 ML VIAL ONE (12:17)
[2018-01-24] MEDS ORDERED: Lidocaine 1% PF 5 ML VIAL ONE (12:17)
[2018-01-24] MEDS ORDERED: Levofloxacin 500 mg/D5W 100 ml Premix Bag ONE (13:10)
[2018-01-24] MEDS ORDERED: Midazolam HCl 2 mg/2 ml Vial ONE (13:21)
--- NOTE | 2018-01-24 13:26 | PDOC.PN ---
- Subjective Encounter Start Date: 01/24/18 Encounter Start Time: 13:24 Subjective: feels much better today.no nausea/vomiting -: gets anxious easily . in room & all Qs answered -: no AP/fever/chills.labs reviewed - Objective Resuscitation Status: Resuscitation Status FULL:Full Resuscitation MAR Reviewed: Yes Vital Signs & Weight: Vital Signs (12 hours) Temp Pulse Resp BP Pulse Ox 01/24/18 11:00 98.9 F 94 16 178/80 H 95 01/24/18 08:00 98.0 F 88 18 191/83 H 94 L Weight Admit Weight 185 lb 7 oz Weight 185 lb 7 oz I&O: 01/23/18 01/24/18 01/25/18 06:59 06:59 06:59 Intake Total 2520 840 Output Total 3100 900 Balance -580 -60 Result Diagrams: 01/24/18 09:06 01/24/18 09:06 Additional Labs: Accuchecks 01/24/18 01/24/18 01/23/18 12:04 05:17 19:30 POC Glucose 264 H 194 H 288 H 01/23/18 01/22/18 16:34 19:43 POC Glucose 298 H 319 H Microbiology 01/21/18 15:50 Urine voided Urine Culture - Final Klebsiella pneumoniae ssp pneu Pseudomonas aeruginosa 01/21/18 15:50 Urine voided Urine Culture - Preliminary Klebsiella pneumoniae ssp pneu Pseudomonas aeruginosa Laboratory Tests 01/21/18 01/22/18 01/23/18 16:23 04:13 04:41 Sodium 128 L 133 L 129 L 01/24/18 09:06 Sodium 135 L Phys Exam - Physical Examination Constitutional: NAD HEENT: PERRLA, moist MMs, sclera anicteric, TM's clear, oral pharynx no lesions , 2+ tonsils Neck: no nodes, no JVD, supple, full ROM Respiratory: no wheezing, no rales, no rhonchi, wheezing present, clear to auscultation bilateral Cardiovascular: RRR, no significant murmur, no rub Gastrointestinal: soft, non-tender, no distention, positive bowel sounds Musculoskeletal: no edema, pulses present Neurological: non-focal, normal sensation, moves all 4 limbs Psychiatric: normal affect, A&O x 3 Skin: no rash Dx/Plan (1) Complicated UTI (urinary tract infection) Code(s): N39.0 - URINARY TRACT INFECTION, SITE NOT SPECIFIED Status: Acute Comment: POA/ hx of peptostrep, MSSA in past. on vanco & meropenam per ID., follow cultures.urology following. (2) NISH (acute kidney injury) Code(s): N17.9 - ACUTE KIDNEY FAILURE, UNSPECIFIED Status: Resolved Comment : Improved. monitor. (3) Urinary retention Code(s): R33.9 - RETENTION OF URINE, UNSPECIFIED Status: Chronic Comment: Suprapubic catheter to be done today (4) Hyponatremia Code(s): E87.1 - HYPO-OSMOLALITY AND HYPONATREMIA Status: Acute Comment: seems chronic.monitoring (5) History of left below knee amputation Code(s): Z89.512 - ACQUIRED ABSENCE OF LEFT LEG BELOW KNEE Status: Chronic (6) Anemia of chronic disease Code(s): D63.8 - ANEMIA IN OTHER CHRONIC DISEASES CLASSIFIED ELSEWHERE Status : Chronic Comment: s/p 1 unit PRBC (7) CKD (chronic kidney disease) stage 2, GFR 60-89 ml/min Code(s): N18.2 - CHRONIC KIDNEY DISEASE, STAGE 2 (MILD) Status: Chronic (8) Chronic systolic CHF (congestive heart failure) Code(s): I50.22 - CHRONIC SYSTOLIC (CONGESTIVE) HEART FAILURE Status: Chronic Comment: Cont home meds of Ranexa,Statin,BB,lasix prn.. ASA and plavix on hold for surgery.EF 45-50% w 1/3 diastolic dysfuntion on ECHO 08/06 (9) DM2 (diabetes mellitus, type 2) Status: Chronic Qualifiers: Diabetes mellitus long term care administrator insulin use: without long term care administrator use Diabetes mellitus complication status: with neurologic complications Diabetes mellitus complication detail: with polyneuropathy Qualified Code(s): E11.42 - Type 2 diabetes mellitus with diabetic polyneuropathy Comment: Insulin SI and 70/30.Accuchecks achs (10) Hypertension Code(s): I10 - ESSENTIAL (PRIMARY) HYPERTENSION Status: Chronic Qualifiers: Hypertension type: essential hypertension Qualified Code(s): I10 - Essential (primary) hypertension (11) PVD (peripheral vascular disease) with claudication Code(s): I73.9 - PERIPHERAL VASCULAR DISEASE, UNSPECIFIED Status: Chronic Comment: s/p L BKA (12) Hypokalemia Code(s): E87.6 - HYPOKALEMIA Status: Resolved - Plan plan discussed w/ family, continue antibiotics, PT/OT, out of bed/ambulate, DVT proph w/SCDs cont ABx based on urine culture.klebsiellela and pseudomonas quite sensisti -: most likey will be changed to PO ABx tomorrow post SP catheter -: Id and urology input appreciated -: jacob daiana etomorrow if stable w HH -: declines rehab.check labs in am * . Review of Systems - Review of Systems Constitutional: negative: fever, chills, sweats, weakness, malaise, other Respiratory: negative: Cough, Dry, Shortness of Breath, Hemoptysis, SOB with Excertion, Pleuritic Pain, Sputum, Wheezing Cardiovascular: negative: chest pain, palpitations, orthopnea, paroxysmal nocturnal dyspnea, edema, light headedness, other Gastrointestinal: negative: Nausea, Vomiting, Abdominal Pain, Diarrhea, Constipation, Melena, Hematochezia, Other Genitourinary: negative: Dysuria, Frequency, Incontinence, Hematuria, Retention , Other Musculoskeletal: negative: Neck Pain, Shoulder Pain, Arm Pain, Back Pain, Hand Pain, Leg Pain, Foot Pain, Other Skin: negative: Rash, Lesions, Kt, Bruising, Other Neurological: negative: Weakness, Numbness, Incoordination, Change in Speech, Confusion, Seizures, Other - Medications/Allergies Allergies/Adverse Reactions: Allergies Allergy/AdvReac Type Severity Reaction Status Date / Time Sulfa (Sulfonamide Allergy Severe Anaphylaxis Verified 01/21/18 22:32 Antibiotics) Medications: Current Medications Acetaminophen (Tylenol) 650 mg PO Q4H PRN PRN Reason: Headache/Fever or Pain Acidophilus (Floranex) 1 tab PO DAILY [facility] Last Admin: 01/23/18 08:36 Dose: 1 tab Alprazolam (Xanax) 0.5 mg PO TID PRN PRN Reason: Anxiety Last Admin: 01/23/18 22:31 Dose: 0.5 mg Atorvastatin Calcium (Lipitor) 40 mg PO HS [facility] Last Admin: 01/23/18 21:11 Dose: 40 mg Carvedilol (Coreg) 25 mg PO BID-[facility] Last Admin: 01/24/18 08:48 Dose: 25 mg Ciprofloxacin (Cipro) 500 mg PO 0600,1999 [facility] Dextrose/Water (Dextrose 50%) 25 gm SLOW IVP PRN PRN PRN Reason: Hypoglycemia Docusate Sodium (Colace) 100 mg PO DAILY [facility] Last Admin: 01/23/18 08:36 Dose: 100 mg Finasteride (Proscar) 5 mg PO DAILY [facility] Last Admin: 01/23/18 08:36 Dose: 5 mg Furosemide (Lasix) 20 mg PO DAILY PRN PRN Reason: fluid retention Glucagon (Glucagon) 1 mg IM PRN PRN PRN Reason: Hypoglycemia Hydralazine HCl (Apresoline) 10 mg SLOW IVP Q4H PRN PRN Reason: Blood Pressure Dextrose/Water (D5w) 1,000 mls @ 0 mls/hr IV .Q0M PRN; As Directed PRN Reason: Hypoglycemia Sodium Chloride (Normal Saline 0.9%) 1,000 mls @ 70 mls/hr IV .[id number] [facility] Last Admin: 01/24/18 06:01 Dose: 1,000 mls Insulin Human Isoph/Insulin Regular ([facility] 70/30) [facility] Last Admin: 01/24/18 10:19 Dose: Not Given Insulin Human Lispro (Humalog) 0 units SC .MODERATE SLIDING SC PRN PRN Reason: Moderate Correctional Scale Last Admin: 01/23/18 17:41 Dose: 6 unit Magnesium Hydroxide (Milk Of Magnesium) 30 ml PO DAILYPRN PRN PRN Reason: Constipation Magnesium Oxide (Magnesium Oxide) 400 mg PO BID [facility] Last Admin: 01/23/18 21:11 Dose: 400 mg Ondansetron HCl (Zofran Odt) 4 mg PO Q6H PRN PRN Reason: Nausea/Vomiting Ondansetron HCl (Zofran) 4 mg IVP Q6H PRN PRN Reason: Nausea/Vomiting Last Admin: 01/23/18 12:22 Dose: 4 mg [facility]assium [facility] ([facility]Dur) [facility] Last Admin: 01/23/18 17:41 Dose: 20 meq Promethazine HCl (Phenergan) 25 mg PO DAILY PRN PRN Reason: Nausea Ranolazine (Ranexa) 500 mg PO BID [facility] Last Admin: 01/23/18 21:11 Dose: 500 mg Sodium Chloride (Flush - Normal Saline) 10 ml IVF Q12HR [facility] Last Admin: 01/23/18 21:11 Dose: 10 ml Sodium Chloride (Flush - Normal Saline) 10 ml IVF PRN PRN PRN Reason: Saline Flush Tamsulosin HCl (Flomax) 0.4 mg PO QAM [facility] Last Admin: 01/23/18 08:36 Dose: 0.4 mg Tramadol HCl (Ultram) 50 mg PO BID PRN PRN Reason: Pain Last Admin: 01/23/18 14:59 Dose: 50 mg
[2018-01-24] MEDS ORDERED: HYDROmorphone 0.5 MG/0.5 ML SYRINGE ONE (15:00)
[2018-01-24] MEDS ORDERED: HYDROmorphone 2 MG/ML VIAL SLOW IVP PRN (15:03)
[2018-01-24] MEDS ORDERED: Promethazine HCl 25 MG/ML VIAL SLOW IVP PRN (15:03)
[2018-01-24] MEDS ORDERED: Promethazine HCl 25 MG/ML VIAL IM PRN (15:03)
[2018-01-24] MEDS ORDERED: Ondansetron HCl/PF 4 MG/2 ML Vial IVP PRN (15:03)
[2018-01-24] MEDS ORDERED: Fentanyl 100 MCG/2 ML VIAL ONE ×2 (15:06→15:25)
[2018-01-24] MEDS ORDERED: B & O ONE (15:19)
[2018-01-24] MEDS ORDERED: B & O PR PRN (15:31)
[2018-01-24] MEDS: traMADol HCl 50 MG TAB PO PRN (16:48)
[2018-01-24] MEDS: Lactinex Tablet PO SCH (16:52)
[2018-01-24] MEDS: Tamsulosin HCl 0.4 MG CAP PO SCH (16:52)
[2018-01-24] MEDS: Finasteride 5 MG TAB PO SCH (16:52)
[2018-01-24] MEDS: Docusate 100 MG CAP PO SCH (16:53)
[2018-01-24] MEDS: HumaLOG 300 UNITS/3 ML VIAL SC PRN (17:18)
[2018-01-24] MEDS: HYDROcodone/Acetaminophen 7.5/325 mg Tablet PO PRN ×2 (18:29→22:44)
[2018-01-24] MEDS ORDERED: Ciprofloxacin 500 MG TAB PO SCH (20:00)
[2018-01-24] MEDS ORDERED: Cipro 250 MG TAB PO SCH (20:00)
[2018-01-24] MEDS: Atorvastatin Calcium 40 MG TAB PO SCH (21:01)
--- NOTE | 2018-01-24 21:04 | OP ---
DATE OF PROCEDURE: 01/24/2018 PREOPERATIVE DIAGNOSIS: Incomplete bladder emptying. POSTOPERATIVE DIAGNOSIS: Incomplete bladder emptying. PROCEDURES PERFORMED: Cystoscopy, placement of suprapubic tube. SURGEON: Dr. Tyron Katz. ANESTHESIA: General and locally. ESTIMATED BLOOD LOSS: Less than 50 mL. DRAINS PLACED: A 22[place] Vaughn with 30 mL in the balloon, SP tube, and a 22[place] Vaughn with 20 m L in the balloon urethral catheter. OPERATIVE TECHNIQUE: Obtain written verbal consent from the patient after receiving IV Levaquin, he was taken to the operating suite. He was placed in the supine position on the treatment table. Plex iPulses placed on his right lower extremity. He has had a left below knee amputation. He was given a general anesthetic, oral obturator intubation. He was placed in the dorsal lithotomy position and sterilely prepped and draped for suprapubic tube and cystoscopy. Initially, cystoscopy was done. Th is was done with a 22-[place] sheath that was well lubricated, passed under direct vision through the male urethra into urinary bladder with aid of a 30-degree lens. The bladder was filled and emptied a number of times and then filled under about 70 cm of bladder pressure until it was full and palpable in the suprapubic region about two fingerbreadths above the pubic symphysis in the midline, we used a spinal needle to infiltrate the skin and subcutaneous tissues fat and then muscle as we went down a nd placed it through and into the anterior wall of the bladder just the side of the air bubble. With this, he used a size as a milan to make our skin incision, which was made a small scalpel. The bladd er instruments were removed. The needle was removed and allowed the retractors lubricated and darwin t in. It was brought up to the undersurface of the anterior bladder wall until it was palpable along the SP incision site and then we cut down on this until it came out through the site. We then passe d 0-silk through it and through the eye of the 22-[place] catheter and used it to direct the catheter into the bladder. Cystoscopy was done to inflate the balloon under direct vision. SP site from the bladder in was not bleeding and there was minimal bleeding from the skin site. The instruments remov ed, Vaughn catheter was then sterilely inserted, both of these drained well. A 0-silk stitch was used to close the right side of this suprapubic incision and uses also to secure the catheter. A dressin g was placed. He was awakened and extubated and taken by stretcher through recovery room.
[2018-01-25] MEDS: HYDROcodone/Acetaminophen 7.5/325 mg Tablet PO PRN (03:11)
[2018-01-25] MEDS: Ciprofloxacin 500 MG TAB PO SCH ×2 (05:29→16:50)
[2018-01-25] MEDS: ALPRAZolam 0.5 MG TAB PO PRN (06:07)
[2018-01-25] MEDS: Sodium Chloride 0.9% 1,000 ML IV SCH (08:16)
[2018-01-25] MEDS: Finasteride 5 MG TAB PO SCH (08:16)
[2018-01-25] MEDS: Potassium Chloride 20 MEQ TAB PO SCH (08:17)
[2018-01-25] MEDS: Tamsulosin HCl 0.4 MG CAP PO SCH (08:18)
[2018-01-25] MEDS: Magnesium Oxide 400 MG TAB PO SCH (08:18)
[2018-01-25] MEDS: Carvedilol 25 MG TAB PO SCH (08:18)
[2018-01-25] MEDS: Lactinex Tablet PO SCH (08:18)
[2018-01-25] MEDS: Insulin NPH/Reg Insulin Hm 300 UNITS/3 ML VIAL SC SCH ×2 (08:19→16:46)
[2018-01-25] MEDS: Docusate 100 MG CAP PO SCH (08:19)
[2018-01-25 08:25] LABS: Hemoglobin 7.5 g/dL (14.0-18.0)
[2018-01-25 08:43] LABS: Anion Gap 12 mmol/L (10-20); BUN (Urea Nitrogen) 10 mg/dL (8.4-25.7); Calc. Creatinine Clearance 81 mL/min (70-130); Calcium 8.1 mg/dL (7.8-10.44); Carbon Dioxide 24 mmol/L (23-31); Chloride 104 mmol/L (98-107); Estimated GFR-MDRD 66; Glucose 195 mg/dL (80-115); Potassium 4.2 mmol/L (3.5-5.1); Sodium 136 mmol/L (136-145)
[2018-01-25 15:59] VITALS: BP 146/82; TEMP 98.5
--- NOTE | 2018-01-25 21:25 | DIS ---
DATE OF ADMISSION: 01/22/2018 DATE OF DISCHARGE: 01/25/2018 CONDITION AT THE TIME OF DISCHARGE: Stable and improved. PRIMARY CARE PHYSICIAN: Dr. Cordell Ronquillo. DISCHARGE DIAGNOSES: 1. Complicated urinary tract infection. 2. Urinary retention, status post suprapubic catheter placement. 3. Acute kidney injury, improved. 4. Chronic hyponatremia. 5. History of left below knee amputation for peripheral vascular disease. 6. Anemia of chronic disease status post 1 unit packed RBC transfusion. 7. Chronic kidney disease. 8. Chronic systolic congestive heart failure, EF of 45%-50%. Last echo in 07/2017. 9. Diabetes mellitus type 2. 10. Hypertension. 11. Peripheral vascular disease. 12. Hypokalemia, resolved. DISCHARGE MEDICATIONS: Resume the home medications. New medication, Florastor 250 mg p.o. daily for 14 days and ciprofloxacin 500 b.i.d. for 7 more days. Home medications resumed as follows, Ranexa 5 00 p.o. b.i.d., Lipitor 40 mg daily, Xanax 0.5 mg daily p.r.n., tamsulosin 0.4 mg daily, Coreg 25 mg p.o. b.i.d., aspirin 325 mg daily, Plavix 75 mg daily, stool softener as needed, insulin 70/30, 21 un its b.i.d., Lasix daily 20 mg, Novolin as previously, Zofran as needed. CONSULTATIONS: Inhouse, Urology, Dr. Jenny Hall and Dr. Ellis. PROCEDURES DONE IN THE HOSPITAL: Include, 1. Bladder ultrasound which shows both ureteral jets normally and normal bladder volumes after uncla mping the Vaughn catheter. 2. Placement of the suprapubic catheter on 01/24/2018, by Dr. Ellis with the cystoscopy. HISTORY OF PRESENT ILLNESS: Mr. Mendez is a 62-year-old male with history of chronic congestive heart failure, peripheral vascular disease, diabetes, and hypertension, who presented to the emergency [place] on the recommendation of his urologist and radiation protection engineer. He was found to have abnormal labs. He h as a history of ureteral stent placement and removal in December and has been home on Vaughn catheter. Tenisha miles was admitted for possible suprapubic catheter placement and urinary tract infection. Upon presenta tion, his creatinine was elevated to 1.88. His urinalysis suggested a significant UTI. He was admit bola on IV antibiotics and Urology consultation. Please see admission history and physical for furthe r detail. He was otherwise hemodynamically stable. HOSPITAL COURSE: The patient was seen by Urology and was continued on IV antibiotics. They recommen ded placement of a suprapubic catheter, which was done without complication. After the procedure, th e patient was back to his baseline. His urine culture was followed and it did grow Klebsiella pneumo niae and Pseudomonas aeruginosa. Both of these bacteria were quite sensitive except the Klebsiella w as resistant to nitrofurantoin. Dr. Katz has changed his IV antibiotic to oral antibiotic and has cleared him for discharge this morning. The patient was seen and examined prior to discharge and is eager to go home. He already has home he alth set up with [employer] prior to presentation. He will continue with them. PHYSICAL EXAMINATION: VITAL SIGNS: This morning, temperature 98.4, pulse of 75, respirations 16, saturating 92% on room ai r, blood pressure 171/69. GENERAL: No acute distress, awake, alert, oriented x3. CHEST: Clear to auscultation without any wheezing, rales or rhonchi. Rate and rhythm is regular wit hout any murmur, rubs or gallops. Suprapubic catheter site has minimal discharge and his tube and ba g have clear yellow urine in it. LABORATORY EXAMINATION: Hemoglobin 7.5, which was 7.6 on admission. Serum creatinine is 1.12, which was 1.88 on admission. He is instructed to follow up with primary care physician as well as Urology in the outpatient [facility]. Discharge plan was discussed with the patient and all questions were answered.
== END 2018-01-25 16:55 | disposition home health service (06) | DRG 690 ==
LOC: ERS 15:33 → T4-A 18:00
PROVIDERS: ADMIT Internal Medicine; ATTEND Internal Medicine
PROC: 0TJB8ZZ Inspection of Bladder, Via Natural or Artificial Opening Endoscopic (ICD-10-PCS; principal; 2018-01-24)
PROC: 0T9B30Z Drainage of Bladder with Drainage Device, Percutaneous Approach (ICD-10-PCS; 2018-01-24)
DX: N30.00 Acute cystitis without hematuria (principal); I50.22 Chronic systolic (congestive) heart failure; N17.9 Acute kidney failure, unspecified; E87.1 Hypo-osmolality and hyponatremia; E87.6 Hypokalemia; Z89.511 Acquired absence of right leg below knee; Z95.828 Presence of other vascular implants and grafts; E11.9 Type 2 diabetes mellitus without complications; I10 Essential (primary) hypertension; E66.9 Obesity, unspecified; F41.9 Anxiety disorder, unspecified; Z87.891 Personal history of nicotine dependence; E83.42 Hypomagnesemia; E78.5 Hyperlipidemia, unspecified; N31.9 Neuromuscular dysfunction of bladder, unspecified; R33.9 Retention of urine, unspecified; B96.5 Pseudomonas (aeruginosa) (mallei) (pseudomallei) as the cause of diseases classified elsewhere; N18.3 Chronic kidney disease, stage 3 (moderate); E11.22 Type 2 diabetes mellitus with diabetic chronic kidney disease; I25.10 Atherosclerotic heart disease of native coronary artery without angina pectoris; Z95.5 Presence of coronary angioplasty implant and graft; Z79.899 Other long term (current) drug therapy; Z79.2 Long term (current) use of antibiotics; Z16.24 Resistance to multiple antibiotics; I73.9 Peripheral vascular disease, unspecified; Z68.28 Body mass index [BMI] 28.0-28.9, adult
CPT/HCPCS: 36415; 36416; 76856; 80048; 81003; 81015; 82010; 82330; 82803; 83605; 83735; 84100; 85014; 85018; 85025; 86850; 86900; 86901; 87077; 87086; 87186; 93005; 96361; 96365; 96375; A4216; J0692; J0696; J1170; J1644; J1956; J2001; J2060; J2185; J2250; J2405; J2704; J3010; J3370; J3475; J3480; J7050; Q0162

== ENCOUNTER 2018-08-18 08:19 | Day surgery (SDC) | payer MEDICARE ==
[2018-08-17 10:18] VITALS: BMI 30.4
[~2018-08-18 08:19] MED LIST: EPINEPHrine 0.3 MG, Dextrose 50% 3 ML in Ophthalmic Irrigation Solution 500 ML FS SCH
[2018-08-18] MEDS ORDERED: Cyclopentolate 1% Opth Drop 2 ML BOT ONE (09:11)
[2018-08-18] MEDS ORDERED: Phenylephrine 2.5% Ophth Soln 5 ML BOT ONE (09:11)
[2018-08-18] MEDS ORDERED: Midazolam HCl 2 mg/2 ml Vial ONE (10:15)
[2018-08-18] MEDS ORDERED: Fentanyl 100 MCG/2 ML VIAL ONE (10:15)
[2018-08-18] MEDS ORDERED: PROPOFOL 20 ML ONE (10:15)
[2018-08-18] MEDS ORDERED: PROPOFOL 200 MG/20 ML VIAL ONE (12:30)
[2018-08-18] MEDS ORDERED: Lidocaine 4% PF 5 ML AMP ONE (12:30)
[2018-08-18] MEDS ORDERED: Bupivacaine 0.75% 10 ML AMP ONE (12:30)
[2018-08-18] MEDS ORDERED: CEFAZOLIN 1 GM VIAL ONE (12:30)
[2018-08-18] MEDS ORDERED: Lidocaine 1% PF 5 ML VIAL ONE ×2 (12:30)
[2018-08-18] MEDS ORDERED: Triamcinolone 40 MG/ML VIAL ONE (12:30)
[2018-08-18] MEDS ORDERED: Maxitrol 0.1% Opth Oint 3.5 GM TUBE ONE (12:30)
--- NOTE | 2018-08-19 14:51 | OP ---
DATE OF PROCEDURE: 08/18/2018 PREOPERATIVE DIAGNOSIS: Glaucoma, right eye. POSTOPERATIVE DIAGNOSIS: Glaucoma, right eye. PROCEDURES PERFORMED: Pars plana vitrectomy, panretinal photocoagulation, tube-shunt scleral patch graft, right eye. ANESTHESIA: Local with monitored anesthesia care. PROCEDURE IN DETAIL: The patient was identified in the preoperative holding area. Appropriate informed consent for the planned surgical procedure on the right eye had been obtained. The patient was transported to the operative suite where appropriated cardiopulmonary monitoring was established. Local anesthesia obtained using retrobulbar block. The patient was prepped and draped in the usual sterile manner for ophthalmic surgery, right eye. Lid speculum was placed in the right eye. Superotemporal conjunctival was opened with Rafael scissors. FP7 tube-shunt was placed 14 mm posterior to limbus, superotemporally and fixated with two 5-0 Mersilene sutures. Trocars were placed supratemporally, inferotemporally, superonasally. Infusion line was placed inferotemporally. Light pipe and vitreous cutter were inserted into the eye. Core of vitrectomy was performed. Posterior hyaloid face was elevated with some difficulty, peeled into the retinal periphery. Panretinal photocoagulation was placed on non-macular areas with the retina as permitted by the poor visualization through the IOL. The tube from the tube-shunt was trimmed and inserted through the superior temporal sclerotomy , 5 mm posterior to the limbus. The tube was covered with a Tutoplast graft. Conjunctiva was closed with 7-0 Vicryl suture. Retobulbar Kenalog and subjunctival Ancef was placed. Atropine and antibiotic ointment was placed. Eye was patched and shielded. The patient was taken to the postoperative recovery unit in good condition having suffered no immediate perioperative complications. The patient was instructed to keep patch and shield on, avoid lifting or bending, and follow up in the morning with Dr. Koo. Job ID: [id number] [facility] CENTERFareed
== END 2018-08-18 12:27 | disposition home or self-care (01) ==
LOC: SDC 08:19
PROVIDERS: ATTEND Ophthalmology Retina Specialist
PROC: 08123J4 Bypass Right Anterior Chamber to Sclera with Synthetic Substitute, Percutaneous Approach (ICD-10-PCS; principal; 2018-08-18)
PROC: 08T43ZZ Resection of Right Vitreous, Percutaneous Approach (ICD-10-PCS; 2018-08-18)
PROC: 08QE3ZZ Repair Right Retina, Percutaneous Approach (ICD-10-PCS; 2018-08-18)
DX: H40.9 Unspecified glaucoma (principal); H43.11 Vitreous hemorrhage, right eye; E10.9 Type 1 diabetes mellitus without complications; F17.210 Nicotine dependence, cigarettes, uncomplicated; Z79.82 Long term (current) use of aspirin; Z79.899 Other long term (current) drug therapy; Z88.2 Allergy status to sulfonamides
CPT/HCPCS: 36416; J0171; J0690; J2001; J2250; J2704; J3010; J3301; J3490

== ENCOUNTER 2018-10-12 13:10 | Observation (INO) | payer MEDICARE ==
[2018-10-12 14:25] LABS: Bilirubin Negative (Negative); Blood, Urine Moderate (Negative); Clarity CLOUDY (Clear); Glucose, Urine (Dipstick) 100 mg/dL (Negative); Leukocyte Large (Negative); Nitrite Negative (Negative); Protein, Urine (Dipstick) 100 mg/dL (Neg-Trace); Specific Gravity, Urine 1.008 (1.002-1.036); Urobilinogen 0.2 mg/dL (0.2-1.0); pH, Urine 6.5 (5.0-9.0)
[2018-10-12 14:28] LABS: #Basophils 0.1 thou/uL (0.0-0.2); #Eosinphils 0.4 thou/uL (0.0-0.7); #Lymphocytes 2.3 thou/uL (1.20-3.40); #Monocytes 0.9 thou/uL (0.11-0.59); #Neutrophils 7.1 thou/uL (1.40-6.50); %Basophils 1.1 % (0.0-1.0); %Eosinophils 3.8 % (0.0-10.0); %Lymphocytes 21.3 % (21.0-51.0); %Monocytes 8.1 % (0.0-10.0); %Neutrophils 65.6 % (42.0-75.0); Hemoglobin 11.9 g/dL (14.0-18.0); Mean Corpuscular Hemoglobin 30.6 pg (27.0-31.0); Mean Platelet Volume 7.7 fL (7.4-10.4); Platelet Count 293 thou/uL (130-400); Red Blood Cell (RBC) Count 3.89 mill/uL (4.70-6.10); White Blood Cell (WBC) Count 10.9 thou/uL (4.8-10.8)
[2018-10-12 14:29] LABS: Bacteria/HPF 2+ HPF (None Seen); Hyaline Casts/LPF 0-3 HYALINE CAST LPF (0-3 Hyaline); Pathc Cast-AUWi Flag 0.14 (0-2.49); Squamous Epithelial 0-3 HPF (0-3)
[2018-10-12] MEDS ORDERED: Furosemide 40 MG/4 ML VIAL ONE (14:29)
--- NOTE | 2018-10-12 14:41 | RAD ---
PORTABLE CHEST 1 VIEW: Date: 10/12/18 Time: 1426 hours HISTORY: Dyspnea. Bilateral lower extremity edema. FINDINGS/IMPRESSION: Comparison made with exam of 08/14/17. The heart is enlarged. The lungs are expanded without focal areas of consolidation, pneumothorax, fra nk pulmonary edema, or large effusions. POS: [facility]
[2018-10-12 14:50] LABS: ALT (SGPT) 18 U/L (8-55); AST (SGOT) 20 U/L (5-34); Albumin 3.2 g/dL (3.4-4.8); Alkaline Phosphatase 167 U/L (40-150); Anion Gap 13 mmol/L (10-20); BUN (Urea Nitrogen) 25 mg/dL (8.4-25.7); Bilirubin, Total 0.2 mg/dL (0.2-1.2); Calc. Creatinine Clearance 0 mL/min (70-130); Calcium 9.2 mg/dL (7.8-10.44); Carbon Dioxide 23 mmol/L (23-31); Chloride 103 mmol/L (98-107); Estimated GFR-MDRD 27; Globulin 3.3 g/dL (2.4-3.5); Glucose 130 mg/dL (80-115); Potassium 4.1 mmol/L (3.5-5.1); Protein, Total 6.5 g/dL (5.8-8.1); Sodium 135 mmol/L (136-145)
[2018-10-12 15:12] LABS: CKMB 5.5 ng/mL (0-6.6)
[2018-10-12] MEDS ORDERED: cefTRIAXone\\ROCEPHIN 1 GM VIAL ONE (16:02)
[2018-10-12] MEDS ORDERED: HumaLOG 300 UNITS/3 ML VIAL SC PRN ×2 (16:15)
[2018-10-12] MEDS ORDERED: Dextrose 50% Abboject 50 ML SYRINGE SLOW IVP PRN (16:15)
[2018-10-12] MEDS ORDERED: ALPRAZolam 0.5 MG TAB PO PRN (16:15)
[2018-10-12] MEDS ORDERED: Acetaminophen 325 MG TAB PO PRN (16:15)
[2018-10-12] MEDS ORDERED: Senokot S 8.6-50 MG TAB PO PRN (16:15)
[2018-10-12] MEDS ORDERED: Guaifenesin DM 100-10/5 ML UDCUP PO PRN (16:15)
[2018-10-12] MEDS ORDERED: traMADol HCl 50 MG TAB PO PRN (16:15)
[2018-10-12] MEDS ORDERED: Dextrose 5% in Water 1,000 ML IV PRN (16:15)
[2018-10-12] MEDS ORDERED: Metolazone 2.5 MG TAB PO SCH (16:30)
[2018-10-12] MEDS ORDERED: Furosemide 100 MG/10 ML VIAL SLOW IVP SCH (16:30)
[2018-10-12] MEDS ORDERED: Aspirin Chewable 81 MG TAB ONE (16:40)
--- NOTE | 2018-10-12 16:54 | HP ---
REASON FOR ADMISSION: Acute CHF exacerbation with volume overload. HISTORY OF PRESENTING ILLNESS: The patient gives history of retaining fluid in his lower extremities and abdomen area. This has been progressively getting worse. He gets extremely short of breath on minimal exertion. He has left BKA and uses a motorized wheelchair. He has stopped ambulating for more than a year now after he had right hip fracture with surgery and worsening neuropathy preventing him from ambulating. The patient states he had ejection fraction of around 25% at one point in time and it has come up to 45%. He does not follow with [facility]. The last followup he had was with Dr. Alvarez almost two years back. No current chest pain, palpitations, or PND. The patient has no complaints of fever. No altered phlegm, although he has some dry cough. PAST MEDICAL AND SURGICAL HISTORY: History of CHF with ejection fraction of 45% and diastolic dysfunction as well based on echo done in July of 2017, diabetes mellitus type 2, coronary artery disease with prior stent placed nearly two years back, glaucoma, left below-knee amputation, dyslipidemia, peripheral vascular disease with stent placed to right lower extremity, hypertension, obesity, likely CKD, and right hip surgery for fracture. CURRENT MEDICATIONS: The patient is on, 1. Norvasc 2.5 mg p.o. daily. 2. Atorvastatin 40 mg p.o. at bedtime. 3. Plavix 75 mg p.o. daily. 4. Coreg 25 mg one and a half tablet twice daily. 5. Pepcid 20 mg daily. 6. Ranexa 500 mg twice daily. 7. Novolin 70/30, 32 units subcu twice daily. 8. Lasix 80 mg in a.m. and 20 mg p.o. q.p.m. 9. Flomax 0.4 mg p.o. daily. 10. Xanax 0.5 mg p.o. at bedtime p.r.n. 11. Ultram 50 mg twice daily. ALLERGIES: ALLERGIC TO SULFA. PERSONAL HISTORY: Quit smoking 3 years ago. Prior to that, smoked two packs a day for nearly 40 years. Does not abuse alcohol or drugs. Lives with his . FAMILY HISTORY: Both parents are alive. Mother is around 82 years, she has history of diabetes. Father is developing dementia and is around 81 years. CODE STATUS: Full. Power of energy attorney is his . REVIEW OF SYSTEMS: CONSTITUTIONAL: Negative for weight loss or gain, ability to conduct usual activities. SKIN: Negative for rash, itching. EYES: Negative for double vision, pain. ENT/MOUTH: Negative for nose bleeding, neck stiffness, pain, tenderness. CARDIOVASCULAR: Negative for palpitations, dyspnea on exertion, orthopnea. RESPIRATORY: Negative for shortness of breath, wheezing, cough, hemoptysis, fever or night sweats. GASTROINTESTINAL: Negative for poor appetite, abdominal pain, heartburn, nausea, vomiting, constipation, or diarrhea. GENITOURINARY: Negative for urgency, frequency, dysuria, nocturia. MUSCULOSKELETAL: Negative for pain, swelling. NEUROLOGIC/PSYCHIATRIC: Negative for anxiety, depression. ALLERGY/IMMUNOLOGIC: Negative for skin rash, bleeding tendency. PHYSICAL EXAMINATION: GENERAL: The patient is a 63-year-old male, who is currently not in any acute distress. VITAL SIGNS: Blood pressure 160/84, pulse 80 per minute, respiratory rate 18 per minute, temperature 98.9 degrees Fahrenheit, and saturating 96% on room air. NECK: Supple. No elevated JVD. HEENT: Eyes, extraocular muscles intact. Pupils reacting to light. Oral cavity, mucous membranes are moist. No exudates or congestion. CARDIOVASCULAR: S1 and S2 heard. Regular rhythm. RESPIRATORY: Air entry 1+ bilateral. Scattered rales in the basal area. ABDOMEN: Soft and there is abdominal wall edema in the lower quadrant. No rigidity or guarding. EXTREMITIES: 2+ peripheral edema. Left BKA is seen. Peripheral pulses are 1+ bilateral. No ischemic ulcerations or gangrene. CENTRAL NERVOUS SYSTEM: No gross focal deficits noted. The patient is alert, awake, and oriented well. PSYCHIATRIC: The patient's mood is euthymic. No hallucinations or delusions. LABORATORY DATA: EKG done shows normal sinus rhythm at 78 beats per minute. White count of 10, H and H 11 and 36, platelet count 293, MCV is 93 with 65% neutrophils. Electrolytes stable. BUN 25, creatinine 2.4, serum glucose 130. AST and ALT within normal limits. Alkaline phosphatase is 167. CK-MB 5.5. Troponin I 0.03. BNP 137. Albumin is 3.2. Chest x-ray done shows mild pulmonary vascular congestion, cardiomegaly. CLINICAL IMPRESSION AND PLAN: The patient will be under observation for congestive heart failure exacerbation with volume overload with systolic and diastolic dysfunction. Last known ejection fraction was 45% in 2017. He has not had followups either at [facility] or with his examination proctor, Dr. Alvarez for almost two years now. The patient states he is not compliant with his diet, but says that he does not had any extra salt, he eats more carbs. He says he is compliant with medications. He will be placed on Lasix 60 mg at 6:00 a.m. and 2:00 p.m., one dose of 80 mg IV will be given now. He will also be on metolazone 5 mg daily and a 2.5 mg dose now. We will continue his home medications, aspirin, Lipitor, eye drops as before, Plavix, Coreg will be reduced to 12.5 twice daily, Humulin 70/30, Ranexa, and Flomax as before. The patient has suprapubic catheter and his urinalysis likely reflect colonization. The patient has known history of CKD and likely will get worse with current diuresis. Dr. Barth, his compressor repairer, will be consulted as well. We will obtain an echo with 2D Doppler for current ejection fraction. He was counseled with regard to compliance with dietary and medications and also regular followups with specialist. Job ID: [id number]
[2018-10-12 17:50] VITALS: BMI 36.6
[2018-10-12] MEDS: HumuLIN 70/30 (300 UNITS/3 ML VIAL) SC SCH (18:21)
[2018-10-12] MEDS ORDERED: Latanoprost 0.005% Ophth Soln 2.5 ml Bottle R EYE SCH (21:00)
[2018-10-12] MEDS ORDERED: Atorvastatin Calcium 40 MG TAB PO SCH (21:00)
[2018-10-12] MEDS ORDERED: Famotidine 20 MG TAB PO SCH (21:00)
[2018-10-12] MEDS: Carvedilol 6.25 MG TAB PO SCH (21:01)
[2018-10-12] MEDS: Brimonidine Tartrate 0.2% Ophth Soln 5 ml Bottle EA EYE SCH (21:09)
[2018-10-12] MEDS: Brinzolamide 1% Ophth Soln 10 ml Bottle EA EYE SCH (21:10)
[2018-10-13 05:05] LABS: #Basophils 0.1 thou/uL (0.0-0.2); #Eosinphils 0.5 thou/uL (0.0-0.7); #Lymphocytes 2.8 thou/uL (1.20-3.40); #Monocytes 0.9 thou/uL (0.11-0.59); #Neutrophils 6.7 thou/uL (1.40-6.50); %Basophils 0.9 % (0.0-1.0); %Eosinophils 4.6 % (0.0-10.0); %Lymphocytes 25.3 % (21.0-51.0); %Monocytes 7.9 % (0.0-10.0); %Neutrophils 61.3 % (42.0-75.0); Hemoglobin 12.1 g/dL (14.0-18.0); Mean Corpuscular HGB CONC 33.3 g/dL (32.0-36.0); Mean Corpuscular Hemoglobin 30.8 pg (27.0-31.0); Mean Corpuscular Volume 92.5 fL (78.0-98.0); Mean Platelet Volume 7.9 fL (7.4-10.4); Platelet Count 276 thou/uL (130-400); RBC Distribution Width 15.1 % (11.5-14.5); Red Blood Cell (RBC) Count 3.91 mill/uL (4.70-6.10)
[2018-10-13 05:34] LABS: Albumin 3.1 g/dL (3.4-4.8); Anion Gap 15 mmol/L (10-20); BUN (Urea Nitrogen) 26 mg/dL (8.4-25.7); BUN/Creatinine Ratio 10.79; Calc. Creatinine Clearance 48 mL/min (70-130); Calcium 8.9 mg/dL (7.8-10.44); Carbon Dioxide 21 mmol/L (23-31); Chloride 104 mmol/L (98-107); Estimated GFR-MDRD 27; Glucose 121 mg/dL (80-115); Phosphorus 4.4 mg/dL (2.3-4.7); Potassium 3.7 mmol/L (3.5-5.1); Sodium 136 mmol/L (136-145)
[2018-10-13] MEDS ORDERED: Furosemide 100 MG/10 ML VIAL SLOW IVP SCH (06:00)
[2018-10-13] MEDS: Brimonidine Tartrate 0.2% Ophth Soln 5 ml Bottle EA EYE SCH (06:50)
[2018-10-13] MEDS ORDERED: Metolazone 5 MG TAB PO SCH (08:30)
[2018-10-13] MEDS ORDERED: Enoxaparin Sodium 30 MG/0.3 ML SYRINGE SC SCH (09:00)
[2018-10-13] MEDS ORDERED: Aspirin Chewable 81 MG TAB PO SCH (09:00)
[2018-10-13] MEDS ORDERED: Docusate 100 MG CAP PO SCH (09:00)
[2018-10-13] MEDS ORDERED: Clopidogrel Bisulfate 75 MG TAB PO SCH (09:00)
[2018-10-13] MEDS ORDERED: Tamsulosin HCl 0.4 MG CAP PO SCH (09:00)
[2018-10-13] MEDS: Carvedilol 6.25 MG TAB PO SCH (09:30)
[2018-10-13] MEDS: Brinzolamide 1% Ophth Soln 10 ml Bottle EA EYE SCH (09:30)
[2018-10-13] MEDS: HumuLIN 70/30 (300 UNITS/3 ML VIAL) SC SCH (09:31)
--- NOTE | 2018-10-13 11:44 | PDOC.PN ---
- Subjective Encounter Start Date: 10/13/18 Encounter Start Time: 09:30 Subjective: feels good, has been urinating a lot -: no sob or abd pain - Objective Resuscitation Status - Order Detail: 10/12/18 16:08 Resuscitation Status Routine Resuscitation Status: FULL: Full Resuscitation MAR Reviewed: Yes Vital Signs & Weight: Vital Signs (12 hours) Temp Pulse Resp BP BP Pulse Ox 10/13/18 09:30 152/67 H 10/13/18 07:20 98.1 F 81 18 152/68 H 96 10/13/18 04:07 98.1 F 75 16 139/67 98 Weight Weight 239 lb 11.2 oz I&O: 10/12/18 10/13/18 10/14/18 06:59 06:59 06:59 Intake Total 1040 Output Total 2600 Balance -1560 Result Diagrams: 10/13/18 04:55 10/13/18 04:55 Additional Labs: Accuchecks 10/13/18 10/13/18 10/12/18 10:39 06:07 20:41 POC Glucose 219 H 130 H 203 H Phys Exam - Physical Examination HEENT: PERRLA, moist MMs Neck: no JVD, supple Respiratory: no wheezing, no rhonchi Cardiovascular: RRR, no significant murmur Gastrointestinal: soft, no distention, positive bowel sounds Musculoskeletal: pulses present, edema present Neurological: non-focal, moves all 4 limbs left bka Psychiatric: normal affect, A&O x 3 Dx/Plan (1) Systolic CHF, acute on chronic Code(s): I50.23 - ACUTE ON CHRONIC SYSTOLIC (CONGESTIVE) HEART FAILURE Status : Acute (2) Anemia of chronic disease Code(s): D63.8 - ANEMIA IN OTHER CHRONIC DISEASES CLASSIFIED ELSEWHERE Status : Chronic (3) Cardiomyopathy Code(s): I42.9 - CARDIOMYOPATHY, UNSPECIFIED Status: Chronic Qualifiers: (4) DM2 (diabetes mellitus, type 2) Status: Chronic Qualifiers: Diabetes mellitus half-way insulin use: with half-way use Diabetes mellitus complication status: with kidney complications Diabetes mellitus complication detail: with chronic kidney disease Chronic kidney disease stage : stage 3 (moderate) Qualified Code(s): E11.22 - Type 2 diabetes mellitus with diabetic chronic kidney disease; N18.3 - Chronic kidney disease, stage 3 ( moderate); 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 Review of Systems - Medications/Allergies Allergies/Adverse Reactions: Allergies Allergy/AdvReac Type Severity Reaction Status Date / Time Sulfa (Sulfonamide Allergy Severe Anaphylaxis Verified 10/12/18 17:49 Antibiotics) Medications: Current Medications Acetaminophen (Tylenol) 650 mg PO Q4H PRN PRN Reason: Headache/Fever/Mild Pain (1-3) Last Admin: 10/13/18 02:49 Dose: 650 mg Alprazolam (Xanax) 0.5 mg PO TID PRN PRN Reason: Anxiety Aspirin (Aspirin Chewable) 81 mg PO DAILY [facility] Last Admin: 10/13/18 09:30 Dose: 81 mg Atorvastatin Calcium (Lipitor) 40 mg PO HS [facility] Last Admin: 10/12/18 21:04 Dose: 40 mg Brimonidine Tartrate (Alphagan 0.2% Ophth Soln) 1 drop EA EYE Q8HR [facility] Last Admin: 10/13/18 06:50 Dose: Not Given Brinzolamide (Azopt 1% Ophth Soln) 1 drop EA EYE TID [facility] Last Admin: 10/13/18 09:30 Dose: Not Given Carvedilol (Coreg) 12.5 mg PO BID [facility] Last Admin: 10/13/18 09:30 Dose: 12.5 mg Clopidogrel Bisulfate (Plavix) 75 mg PO QAM [facility] Last Admin: 10/13/18 09:31 Dose: 75 mg Dextrose/Water (Dextrose 50%) 25 gm SLOW IVP PRN PRN PRN Reason: Hypoglycemia Docusate Sodium (Colace) 100 mg PO DAILY [facility] Last Admin: 10/13/18 09:31 Dose: 100 mg Enoxaparin Sodium (Lovenox) 30 mg SC 0900 [facility] Last Admin: 10/13/18 09:31 Dose: 30 mg Famotidine (Pepcid) 20 mg PO HS [facility] Last Admin: 10/12/18 21:01 Dose: 20 mg Furosemide (Lasix) 60 mg SLOW IVP 0600,1400 [facility] Last Admin: 10/13/18 06:12 Dose: 60 mg Glucagon (Glucagon) 1 mg IM PRN PRN PRN Reason: Hypoglycemia Guaifenesin/Dextromethorphan (Robitussin Dm) 15 ml PO Q4H PRN PRN Reason: Cough Dextrose/Water (D5w) 1,000 mls @ 0 mls/hr IV .Q0M PRN PRN Reason: Hypoglycemia Insulin Human Isoph/Insulin Regular (Humulin 70/30) 30 units SC BID-[facility] Last Admin: 10/13/18 09:31 Dose: 30 unit Insulin Human Lispro (Humalog) 0 units SC .MODERATE SLIDING SC PRN PRN Reason: Moderate Correctional Scale Last Admin: 10/13/18 11:29 Dose: 4 unit Insulin Human Lispro (Humalog) 0 units SC .BEDTIME SLIDING SC PRN PRN Reason: Bedtime Correctional Scale Last Admin: 10/12/18 21:15 Dose: 2 unit Latanoprost (Xalatan 0.005% Ophth Soln) 1 drop R [facility] Last Admin: 10/12/18 21:04 Dose: Not Given Metolazone (Zaroxolyn) 5 mg PO 0830 [facility] Last Admin: 10/13/18 09:30 Dose: 5 mg Ranolazine (Ranexa) 500 mg PO BID [facility] Last Admin: 10/13/18 09:31 Dose: 500 mg Senna/Docusate Sodium (Senokot S) 2 tab PO BID PRN PRN Reason: Constipation Tamsulosin HCl (Flomax) 0.4 mg PO QAM [facility] Last Admin: 10/13/18 09:31 Dose: 0.4 mg Tramadol HCl (Ultram) 50 mg PO BID PRN PRN Reason: Pain
[2018-10-13 12:11] VITALS: BP 163/74; TEMP 99.3
--- NOTE | 2018-10-13 13:47 | DIS ---
DATE OF ADMISSION: 10/12/2018 DATE OF DISCHARGE: 10/13/2018 DISCHARGE DISPOSITION: Home. PRIMARY DISCHARGE DIAGNOSIS: Volume overload with [id number] congestive heart failure exacerbation with systolic dysfunction. SECONDARY DISCHARGE DIAGNOSES: History of cardiomyopathy; chronic anemia; diabetes mellitus, type 2; history of left [id number]-[id number]-ezaf amputation; hypertension; likely chronic kidney disease, stage 2 to 3. PROCEDURES DONE DURING HOSPITALIZATION: The patient had chest x-ray done, which showed cardiomegaly with mild pulmonary vascular congestion. LABORATORY DATA: H and H 12 and 36, platelet count 276. BUN 26, creatinine 2.4 on the day of discharge. Albumin is 3.1. Troponin I was indeterminate, peaking up to 0.03. BNP 137. TSH 2.35. DISCHARGE MEDICATIONS: 1. Lasix 60 mg twice daily. 2. Metolazone 5 mg p.o. daily for another 4 days and to discontinue after that. 3. Florastor 250 mg p.o. daily. 4. Coreg 25 mg p.o. twice daily. 5. Lipitor 40 mg p.o. at bedtime. 6. Aspirin 325 mg p.o. daily. 7. Flomax 0.4 mg p.o. q.p.m. 8. Ranexa 500 mg p.o. twice daily. 9. Novolin 70/30 of 32 units subcutaneously twice daily. 10. Pepcid 20 mg p.o. at bedtime. 11. Colace 100 mg p.o. q.p.m. 12. Plavix 75 mg p.o. daily. 13. Xanax 0.5 mg p.o. at bedtime p.r.n. ALLERGIES: ALLERGIC TO SULFA. INPATIENT CONSULT: Dr. Castillo for Nephrology. 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 BRIEF COURSE DURING HOSPITALIZATION: The patient initially was sent to emergency room by Dr. Barth as he was retaining fluid in lower extremities and abdominal area. The patient was gently diuresed with Lasix and metolazone. He put out nearly 2.6 L of urine during his brief stay here. The patient is feeling comfortable today this morning. He will need to continue increased dose of Lasix at 60 mg twice daily along with metolazone daily for 4 days. He will have a followup appointment with Dr. Armendariz in 1 week with metabolic panel. His renal function has held up so far. He is advised to wear compression stockings or JIMMY hose, which he is reluctant to wear. The patient does not ambulate much due to his BKA. He was also counseled with regard to medication compliance and dietary compliance, which he is not. The patient had mild demand ischemia likely due to volume overload. He is otherwise hemodynamically stable and will be shortly discharged home. Echo with 2D Doppler has been done, and we will follow up on the results and update the patient later. Please see a [id number] documentation for the day of discharge on [facility]. Job ID: [id number]
--- NOTE | 2018-10-14 03:50 | CON ---
DATE OF CONSULTATION: CONSULTING PHYSICIAN: Dr. Rizvi. REASON FOR CONSULT: Acute kidney injury. REASON FOR ADMISSION: CHF exacerbation. HISTORY OF PRESENT ILLNESS: A 63-year-old male with history of CHF, hypertension, CKD, coronary artery disease came to the hospital with shortness of breath and fluid overload and has been treated. Nephrology consult for acute kidney injury. He does follow with Dr. Barth as outpatient for CKD care. He is feeling better when I saw him this morning and probably while going home later this evening. No chest pain, palpitation reported. No fever, chills. No rash. PAST MEDICAL HISTORY: 1. Positive for CHF. 2. CAD. 3. Type 2 diabetes. 4. Glaucoma. 5. CKD. 6. Peripheral vascular disease. 7. Obesity. PAST SURGICAL HISTORY: Right hip surgery. HOME MEDICATIONS: Reviewed. ALLERGIES: SULFA. SOCIAL HISTORY: Quit smoking. No alcohol or illicit drug abuse. FAMILY HISTORY: No history of any kidney disease. REVIEW OF SYSTEMS: CONSTITUTIONAL: Negative for weight loss or gain, ability to conduct usual activities. SKIN: Negative for rash, itching. EYES: Negative for double vision, pain. ENT/MOUTH: Negative for nose bleeding, neck stiffness, pain, tenderness. CARDIOVASCULAR: Negative for palpitations, dyspnea on exertion, orthopnea. RESPIRATORY: Negative for shortness of breath, wheezing, cough, hemoptysis, fever or night sweats. GASTROINTESTINAL: Negative for poor appetite, abdominal pain, heartburn, nausea, vomiting, constipation, or diarrhea. GENITOURINARY: Negative for urgency, frequency, dysuria, nocturia. MUSCULOSKELETAL: Negative for pain, swelling. NEUROLOGIC/PSYCHIATRIC: Negative for anxiety, depression. ALLERGY/IMMUNOLOGIC: Negative for skin rash, bleeding tendency. OBJECTIVE: GENERAL: This is a well-built male, in no apparent distress. VITAL SIGNS: Temperature 99.3, pulse 84, respiratory rate 18, blood pressure 152/69. HEENT: Atraumatic, normocephalic. Oral mucosa is moist NECK: Supple. CARDIOVASCULAR: S1, S2 heard. Rate and rhythm regular. RESPIRATORY: Clear to auscultation. GASTROINTESTINAL: Abdomen is soft. MUSCULOSKELETAL: 1+ edema. DERMATOLOGIC: No skin rash. NEUROLOGIC: Alert and awake. PSYCHIATRIC: Normal mood and affect. LABORATORY DATA: Hemoglobin is 12.1, potassium is 3.7, BUN is 26, creatinine is 2.5. ASSESSMENT AND PLAN: 1. Chronic kidney disease, stage 4, stable, monitor. 2. Anemia, mild. 3. Edema. 4. Cardiorenal syndrome. 5. Hypertension. 6. Monitor labs. 7. Avoid nephrotoxins. Job ID: [id number]
--- NOTE | 2018-10-16 00:05 | EKG ---
Test Reason : Blood Pressure : / mmHG Vent. Rate : 078 BPM Atrial Rate : 078 BPM P-R Int : 174 ms QRS Dur : 082 ms QT Int : 404 ms P-R-T Axes : 053 -12 086 degrees QTc Int : 460 ms Normal sinus rhythm Possible Left atrial enlargement Nonspecific ST and T wave abnormality Prolonged QT Abnormal ECG Confirmed by SUMAYA SINGH, ELIU ([id number]), technical editor [address] ([id number]) on 10/16/2018 12:04:15 AM Referred By: NADIYA Confirmed By:ELIU SHELL MD
== END 2018-10-13 13:41 | disposition home or self-care (01) ==
LOC: ERS 13:10 → 2SW 15:52
PROVIDERS: ADMIT Internal Medicine; ATTEND Internal Medicine
DX: I13.0 Hypertensive heart and chronic kidney disease with heart failure and stage 1 through stage 4 chronic kidney disease, or unspecified chronic kidney disease (principal); E11.22 Type 2 diabetes mellitus with diabetic chronic kidney disease; N18.4 Chronic kidney disease, stage 4 (severe); I50.43 Acute on chronic combined systolic (congestive) and diastolic (congestive) heart failure; D63.1 Anemia in chronic kidney disease; E11.40 Type 2 diabetes mellitus with diabetic neuropathy, unspecified; E11.51 Type 2 diabetes mellitus with diabetic peripheral angiopathy without gangrene; I25.10 Atherosclerotic heart disease of native coronary artery without angina pectoris; Z95.5 Presence of coronary angioplasty implant and graft; E78.5 Hyperlipidemia, unspecified; E87.70 Fluid overload, unspecified; I42.9 Cardiomyopathy, unspecified; E66.9 Obesity, unspecified; Z68.36 Body mass index [BMI] 36.0-36.9, adult; Z87.891 Personal history of nicotine dependence; Z79.02 Long term (current) use of antithrombotics/antiplatelets; Z79.4 Long term (current) use of insulin; Z79.899 Other long term (current) drug therapy; Z88.2 Allergy status to sulfonamides; Z99.3 Dependence on wheelchair; Z89.512 Acquired absence of left leg below knee; Z95.820 Peripheral vascular angioplasty status with implants and grafts
CPT/HCPCS: 71045; 80053; 80069; 82553; 82962 ×2; 83880; 84443; 84484; 85025 ×2; 87077; 87086; 87186; 93005; 93306; 93798; 96365; 96372; 96375; 96376; 97139; 99285; G0378 ×2; 36415; 36416; 81003; 81015; J0696; J1650; J1815; J1940